=== PATIENT | female | born 1995 | race Caucasian/White ===

== ENCOUNTER 2021-06-10 18:32 | Observation (INO) | payer MEDICAID, SELFPAY ==
[2021-06-10] VITALS (10 sets, daily range): BP systolic 99–125; BP diastolic 57–71; PULSE 81–124; RESP 18; TEMP 37.1–39.6; O2SAT 94–97; BMI 20.9
--- NOTE | 2021-06-10 18:38 | XR_ITS ---
PROCEDURE INFORMATION: Exam: XR Chest Exam date and time: 06/10/21 06:38 PM Age: 26 years old Clinical indication: Fever TECHNIQUE: Imaging protocol: XR of the chest. Views: 1 view. COMPARISON: No relevant prior studies available. FINDINGS: Lungs: Unremarkable. No consolidation. Pleural spaces: Unremarkable. No pleural effusion. No pneumothorax. Heart/Mediastinum: Unremarkable. No cardiomegaly. Bones/joints: Unremarkable. IMPRESSION: No acute findings.
--- NOTE | 2021-06-10 18:51 | PC.NURSE ---
Rad at bedside
[2021-06-10 18:59] LABS: Coronavirus 19, PCR Not Detected (NotDetected); Influenza A, PCR Not Detected (NotDetected); Influenza B, PCR Not Detected (NotDetected)
[2021-06-10 19:01] LABS: Basophils % 0.2 % (0.1-2.0); Eosinophils % 0.5 % (0.1-12.0); Hematocrit 42.2 % (37.0-47.0); Hemoglobin 13.9 g/dL (12.2-16.2); Lymphocytes # 0.4 K/mm3 (0.7-4.5); Lymphocytes % 4.9 % (10-50); Mean Corpuscular HGB Conc 32.9 g/dL (31.8-35.4); Mean Corpuscular Hemoglobin 30.9 pg (27.0-31.2); Mean Corpuscular Volume 93.8 fl (81-99); Mean Platelet Volume 11.2 fl (7.4-10.4); Monocytes # 0.1 K/mm3 (0.1-1.0); Monocytes % 1.5 % (1.7-9.3); Neutrophils # 7.4 K/mm3 (1.8-7.8); Neutrophils % 92.9 % (37.0-80.0); Platelet Count 358 K/mm3 (142-424); Red Cell Distribution Width 13.3 % (11.5-17.5)
[2021-06-10 19:06] LABS: MANUAL DIFFERENTIAL MANUAL DIFFERENTIAL (MANUAL DIFF)
[2021-06-10 19:07] LABS: Chloride 108 mmol/L (98-107)
[2021-06-10 19:08] LABS: Potassium 3.6 mmoL/L (3.5-5.1); Sodium 140 mmol/L (136-145)
[2021-06-10 19:10] LABS: Alanine Aminotransferase 46 U/L (12-78); Alkaline Phosphatase 135 U/L (38-126); Amylase 60 U/L (30-110); Anion Gap 11.6 mEq/L (5-15); Aspartate Amino Transferase 139 U/L (14-36); Bilirubin,Total 2.5 mg/dl (0.2-1.3); Blood Urea Nitrogen 12 mg/dl (7-17); Carbon Dioxide 24 mmol/L (22.0-30.0); Creatinine Clearance Estimated 98 mL/min (50-200); Estimated Glomerular Filt Rate 86 ml/min (>60); GFR (African American) 104 ML/MIN (>60)
[2021-06-10 19:11] LABS: Albumin Level 3.9 g/dl (3.5-5.0); Albumin/Globulin Ratio 1.3 (1.1-1.8); Calcium 8.8 mg/dl (8.4-10.2); Globulin 3.1 g/dL (1.3-3.2); Glucose 92 mg/dl (74-100); Lactic Acid 1.8 mmol/L (0.7-2.1); Lipase 39 U/L (23-300)
[2021-06-10 19:18] LABS: C-Reactive Protein 3.2 mg/L (0-4)
[2021-06-10 19:21] LABS: Lymphocytes % 6 % (10-50); Monocytes % 1 % (2-9); Neutrophils % 93 % (42-76); Platelet Estimate Normal; RBC Morphology Normal; Total Cells Counted 100
[2021-06-10 19:30] LABS: Erythrocyte Sedimentation Rate 17 mm/hr (0-20)
[2021-06-10 19:55] LABS: Procalcitonin 13.2 ng/mL (0.0-2.0)
[2021-06-10 20:22] LABS: Microscopic, Urine URINE MICROSCOPIC (MICROSCOPIC)
[2021-06-10 20:26] LABS: Appearance,Urine CLEAR (Clear); Blood, Urine Negative (Negative); Color,Urine ORANGE (Yellow); Glucose,Urine (UA) Negative (Negative); Ketones,Urine 1+ (Negative); Leukocyte Esterase,Urine Negative (Negative); Nitrate,Urine Negative (Negative); Protein,Urine 2+ (Negative)
[2021-06-10 20:30] LABS: Bilirubin,Urine Negative (Negative)
[2021-06-10 20:40] LABS: Barbiturates Screen,Urine Negative ng/ml (<200); Benzodiazepines Screen,Urine Negative ng/ml (<200)
[2021-06-10 20:41] LABS: Bacteria,Urine 3+ /lpf; Mucus,Urine 2+ /lpf
[2021-06-10 20:42] LABS: Cannabinoid Screen,Urine Positive ng/ml (<50); Methadone Screen,Urine Negative ng/ml (<300)
[2021-06-10 20:43] LABS: Cocaine Screen,Urine Negative ng/ml (<300); Opiate Screen,Urine Negative ng/ml (<300)
[2021-06-10 20:44] LABS: Phencyclidine Screen,Urine Negative ng/ml (<25)
--- NOTE | 2021-06-10 20:59 | HMH.EDFEV ---
ED Disposition Clinical Impression: Febrile illness, acute, IVDU (intravenous drug user), Methamphetamine abuse Disposition: Admitted as Observation Condition on Discharge: Good - Critical Care Critical Care Time: No Attestation: On 06/10/21, the high probability of a clinically significant, sudden or life threatening deterioration of the following system(s) required my full and direct attention, intervention and personal management. The time I documented below is in addition to time spent performing reported procedures but includes the following listed in this critical care notation. Medical Decision Making - Medical Records Medical records reviewed: Yes: I reviewed the patient's medical records. - Yuriy Inquiry Pt receiving controlled substance: No Vital Signs: 06/10/21 18:33 06/10/21 19:00 06/10/21 19:30 Temperature 103.2 F H Temperature Source Oral Pulse Rate 107 H 108 H Pulse Rate [Left Radial] 124 H Respiratory Rate 18 Blood Pressure 121/67 114/71 Blood Pressure [Right Arm] 125/64 Blood Pressure Mean [Right Arm] 84 Blood Pressure Source [Right Arm] Automatic Cuff Blood Pressure Position [Right Arm] Sitting 02 Sat by Pulse Oximetry 94 L 97 95 Oxygen Delivery Method Room Air 06/10/21 20:00 06/10/21 21:05 06/10/21 21:34 Temperature 98.8 F Temperature Source Oral Pulse Rate 114 H 102 H 92 H Pulse Rate [Left Radial] Respiratory Rate Blood Pressure 111/63 103/65 L 99/62 L Blood Pressure [Right Arm] Blood Pressure Mean [Right Arm] Blood Pressure Source [Right Arm] Blood Pressure Position [Right Arm] 02 Sat by Pulse Oximetry 95 97 97 Oxygen Delivery Method 06/10/21 22:25 06/10/21 22:30 06/10/21 23:00 Temperature Temperature Source Pulse Rate 88 87 89 Pulse Rate [Left Radial] Respiratory Rate Blood Pressure 104/60 L 103/61 L 100/57 L Blood Pressure [Right Arm] Blood Pressure Mean [Right Arm] Blood Pressure Source [Right Arm] Blood Pressure Position [Right Arm] 02 Sat by Pulse Oximetry 97 97 97 Oxygen Delivery Method 06/10/21 23:30 06/11/21 00:00 06/11/21 00:27 Temperature Temperature Source Pulse Rate 81 72 82 Pulse Rate [Left Radial] Respiratory Rate Blood Pressure 105/57 L 101/45 L 106/58 L Blood Pressure [Right Arm] Blood Pressure Mean [Right Arm] Blood Pressure Source [Right Arm] Blood Pressure Position [Right Arm] 02 Sat by Pulse Oximetry 97 97 99 Oxygen Delivery Method 06/11/21 00:31 06/11/21 01:00 06/11/21 01:30 Temperature Temperature Source Pulse Rate 86 87 80 Pulse Rate [Left Radial] Respiratory Rate 16 Blood Pressure 102/55 L 103/54 L 104/56 L Blood Pressure [Right Arm] Blood Pressure Mean [Right Arm] Blood Pressure Source [Right Arm] Blood Pressure Position [Right Arm] 02 Sat by Pulse Oximetry 98 98 99 Oxygen Delivery Method Room Air Room Air 06/11/21 02:00 06/11/21 02:30 Temperature Temperature Source Pulse Rate 79 82 Pulse Rate [Left Radial] Respiratory Rate 16 Blood Pressure 104/56 L 103/57 L Blood Pressure [Right Arm] Blood Pressure Mean [Right Arm] Blood Pressure Source [Right Arm] Blood Pressure Position [Right Arm] 02 Sat by Pulse Oximetry 99 99 Oxygen Delivery Method Room Air - Lab Data Lab results reviewed: Yes: I reviewed the patient's lab results. Lab Results 06/10/21 18:49: WBC 8.0, RBC 4.50, Hgb 13.9, Hct 42.2, MCV 93.8, MCH 30.9, MCHC 32.9, RDW 13.3, Plt Count 358, MPV 11.2 H, Neut % (Auto) 92.9 H, Lymph % (Auto) 4.9 L, [place] % (Auto) 1.5 L, Eos % (Auto) 0.5, Baso % (Auto) 0.2, Neut # (Auto) 7.4, Lymph # (Auto) 0.4 L, [place] # (Auto) 0.1, Eos # (Auto) 0.0, Baso # (Auto) 0.0, Total Counted 100, Neutrophils % (Manual) 93 H, Lymphocytes % (Manual) 6 L, Monocytes % (Manual) 1 L, Platelet Estimate Normal, RBC Morphology Normal 06/10/21 18:49: Sodium 140, Potassium 3.6, Chloride 108 H, Carbon Dioxide 24, Ani
--- NOTE | 2021-06-10 21:02 | CT_ITS ---
PROCEDURE INFORMATION: Exam: CT Abdomen And Pelvis With Contrast Exam date and time: 06/10/21 09:02 PM Age: 26 years old Clinical indication: Fever; Additional info: Rule out abcess TECHNIQUE: Imaging protocol: Computed tomography of the abdomen and pelvis with contrast. Radiation optimization: All CT scans at this facility use at least one of these dose optimization techniques: automated exposure control; mA and/or kV adjustment per patient size (includes targeted exams where dose is matched to clinical indication); or iterative reconstruction. Contrast material: ISOVUE; Contrast volume: 75 ml; Contrast route: IV; COMPARISON: CR XR CHEST PORTABLE 06/10/21 06:55 PM FINDINGS: Tubes, catheters and devices: None noted. Lungs: Lung bases appear clear. Heart: No significant coronary calcifications. No cardiomegaly. No significant pericardial effusion. Liver: Normal. No mass. Gallbladder and bile ducts: Normal. No calcified stones. No ductal dilation. Pancreas: Normal. No ductal dilation. Spleen: Normal. No splenomegaly. Adrenal glands: Normal. No mass. Kidneys and ureters: Normal. No hydronephrosis. Stomach and bowel: Unremarkable. No obstruction. No mucosal thickening. Appendix: No evidence of appendicitis. Intraperitoneal space: Unremarkable. No free air. No significant fluid collection. Retroperitoneal space: No significant retroperitoneal inflammatory changes are noted. Vasculature: Unremarkable. No abdominal aortic aneurysm. Lymph nodes: Unremarkable. No enlarged lymph nodes. Urinary bladder: Unremarkable as visualized. Reproductive: Tampon in place. Bones/joints: Unremarkable. No acute fracture. Soft tissues: Unremarkable. IMPRESSION: No acute findings.
--- NOTE | 2021-06-10 21:02 | CT_ITS ---
PROCEDURE INFORMATION: Exam: CT Chest With Contrast; Diagnostic Exam date and time: 06/10/21 09:02 PM Age: 26 years old Clinical indication: Fever; Additional info: Rule out abcess TECHNIQUE: Imaging protocol: Diagnostic computed tomography of the chest with contrast. Radiation optimization: All CT scans at this facility use at least one of these dose optimization techniques: automated exposure control; mA and/or kV adjustment per patient size (includes targeted exams where dose is matched to clinical indication); or iterative reconstruction. Contrast material: ISOVUE; Contrast volume: 75 ml; Contrast route: IV; COMPARISON: CR XR CHEST PORTABLE 06/10/21 06:55 PM FINDINGS: Lungs: Unremarkable. No consolidation. No masses. Pleural spaces: Unremarkable. No pneumothorax. No pleural effusion. Heart: Unremarkable. No cardiomegaly. No pericardial effusion. Aorta: Unremarkable. No aortic aneurysm. Lymph nodes: Unremarkable. No enlarged lymph nodes. Liver: Fatty liver. Bones/joints: Unremarkable. No acute fracture. Soft tissues: Unremarkable. IMPRESSION: 1. Fatty liver. 2. No CT evidence of abscess.
--- NOTE | 2021-06-10 21:02 | CT_ITS ---
PROCEDURE INFORMATION: Exam: CT Thoracic Spine With Contrast Exam date and time: 06/10/21 09:02 PM Age: 26 years old Clinical indication: Other: Fever; Additional info: Rule out abcess TECHNIQUE: Imaging protocol: Computed tomography images of the thoracic spine with intravenous contrast. Radiation optimization: All CT scans at this facility use at least one of these dose optimization techniques: automated exposure control; mA and/or kV adjustment per patient size (includes targeted exams where dose is matched to clinical indication); or iterative reconstruction. Contrast material: ISOVUE; Contrast volume: 50 ml; Contrast route: IV; COMPARISON: CT CERVICAL SPINE W CON 06/10/21 10:03 PM FINDINGS: Vertebrae: No acute fracture. Normal alignment. Discs/Spinal canal/Neural foramina: No significant disc protrusion. No severe spinal canal stenosis. No significant neural foraminal narrowing. Soft tissues: Unremarkable. IMPRESSION: Unremarkable CT T-Spine.
--- NOTE | 2021-06-10 21:02 | CT_ITS ---
PROCEDURE INFORMATION: Exam: CT Cervical Spine with Contrast Exam date and time: 06/10/21 09:02 PM Age: 26 years old Clinical indication: Other: Fever; Additional info: Rule out abcess TECHNIQUE: Imaging protocol: Computed tomography images of the cervical spine with contrast. Radiation optimization: All CT scans at this facility use at least one of these dose optimization techniques: automated exposure control; mA and/or kV adjustment per patient size (includes targeted exams where dose is matched to clinical indication); or iterative reconstruction. Contrast material: ISOVUE; Contrast volume: 50 ml; Contrast route: IV; COMPARISON: CT CHEST W CON 06/10/21 09:57 PM FINDINGS: Vertebrae: No acute fracture. Normal alignment. C2-C3: No significant disc protrusion. No severe spinal canal stenosis. No significant neural foraminal narrowing. C3-C4: No significant disc protrusion. No severe spinal canal stenosis. No significant neural foraminal narrowing. C4-C5: No significant disc protrusion. No severe spinal canal stenosis. No significant neural foraminal narrowing. C5-C6: No significant disc protrusion. No severe spinal canal stenosis. No significant neural foraminal narrowing. C6-C7: No significant disc protrusion. No severe spinal canal stenosis. No significant neural foraminal narrowing. C7-T1: No significant disc protrusion. No severe spinal canal stenosis. No significant neural foraminal narrowing. Soft tissues: Unremarkable. Lungs: Lung apices are normal. IMPRESSION: No acute findings.
--- NOTE | 2021-06-10 21:02 | CT_ITS ---
PROCEDURE INFORMATION: Exam: CT Lumbar Spine With Contrast Exam date and time: 06/10/21 09:02 PM Age: 26 years old Clinical indication: Other: Fever; Additional info: Rule out abcess TECHNIQUE: Imaging protocol: Computed tomography images of the lumbar spine with intravenous contrast. Radiation optimization: All CT scans at this facility use at least one of these dose optimization techniques: automated exposure control; mA and/or kV adjustment per patient size (includes targeted exams where dose is matched to clinical indication); or iterative reconstruction. Contrast material: ISOVUE; Contrast volume: 50 ml; Contrast route: IV; COMPARISON: CT THORACIC SPINE W CON 06/10/21 10:07 PM FINDINGS: Vertebrae: No acute fracture. Normal alignment. L1-L2: No significant disc protrusion. No severe spinal canal stenosis. No significant neural foraminal narrowing. L2-L3: No significant disc protrusion. No severe spinal canal stenosis. No significant neural foraminal narrowing. L3-L4: No significant disc protrusion. No severe spinal canal stenosis. No significant neural foraminal narrowing. L4-L5: No significant disc protrusion. No severe spinal canal stenosis. No significant neural foraminal narrowing. L5-S1: No significant disc protrusion. No severe spinal canal stenosis. No significant neural foraminal narrowing. Soft tissues: Unremarkable. IMPRESSION: Unremarkable spine.
[2021-06-10 21:33] LABS: Urine Pregnancy, HCG Qual. Negative (Negative)
[2021-06-11] VITALS (12 sets, daily range): BP systolic 80–120; BP diastolic 40–78; PULSE 72–97; RESP 16–20; TEMP 36.4–37.1; O2SAT 96–100; BMI 23.8
[2021-06-11 01:37] LABS: Procalcitonin 42.7 ng/mL (0.0-2.0)
--- NOTE | 2021-06-11 03:39 | PC.NURSE ---
patient up to floor via wheelchair.
--- NOTE | 2021-06-11 03:40 | PC.NURSE ---
Spoke julian Parker at [facility] for Vanc dosing. She gave recommended dose of 1250mg Vanc IV once.
--- NOTE | 2021-06-11 04:23 | PC.NURSE ---
A&OX4. TOLERATING RA WELL. PT IS VERY DROWSY, BUT IS ABLE TO ANSWER QUESTIONS AND FOLLOWS COMMANDS. PT HAS SLEPT SINCE ARRIVAL TO FLOOR, NO C/O. TOLERATING NPO DIET. VSS WILL CONTINUE TO MONITOR.
[2021-06-11 06:41] LABS: Basophils # 0.2 K/mm3 (0-0.2); Basophils % 0.5 % (0.1-2.0); Eosinophils # 0.2 K/mm3 (0.0-0.4); Eosinophils % 0.5 % (0.1-12.0); Hematocrit 38.6 % (37.0-47.0); Hemoglobin 12.6 g/dL (12.2-16.2); Lymphocytes # 0.2 K/mm3 (0.7-4.5); Lymphocytes % 0.7 % (10-50); Mean Corpuscular HGB Conc 32.8 g/dL (31.8-35.4); Mean Corpuscular Hemoglobin 31.3 pg (27.0-31.2); Mean Corpuscular Volume 95.5 fl (81-99); Mean Platelet Volume 10.1 fl (7.4-10.4); Monocytes # 0.7 K/mm3 (0.1-1.0); Monocytes % 2.2 % (1.7-9.3); Neutrophils # 32.1 K/mm3 (1.8-7.8); Neutrophils % 96.1 % (37.0-80.0); Platelet Count 335 K/mm3 (142-424); Red Blood Count 4.04 M/mm3 (4.20-5.40); Red Cell Distribution Width 13.4 % (11.5-17.5); White Blood Count 33.4 K/mm3 (4.8-10.8)
[2021-06-11 07:13] LABS: Chloride 109 mmol/L (98-107); Sodium 139 mmol/L (136-145)
[2021-06-11 07:16] LABS: Carbon Dioxide 23 mmol/L (22.0-30.0)
[2021-06-11 07:17] LABS: Magnesium 1.4 mg/dl (1.6-2.3)
--- NOTE | 2021-06-11 07:22 | HMH.PHAVTE ---
[facility] Pharmacy VTE Monitoring - Patient Demographics Admission date: 06/10/21 Report Date: 06/11/21 Time: 07:22 Allergies/Adverse Reactions: Patient Allergies No Known Allergies Allergy (Unverified 08/17/17 14:06) Height: 1.68 m Weight: 67.041 kg Patient Problems: Current Active Problems Febrile illness, acute (Acute) IVDU (intravenous drug user) (Acute) Methamphetamine abuse (Acute) - VTE Risk Labs: VTE Related Lab Results Hgb 13.9 g/dL (12.2-16.2) 06/10/21 18:49 Hct 42.2 % (37.0-47.0) 06/10/21 18:49 Plt Count 358 K/mm3 (142-424) 06/10/21 18:49 BUN 12 mg/dl (7-17) 06/10/21 18:49 Creatinine 0.80 mg/dl (0.52-1.04) 06/10/21 18:49 Estimated Creat Clear 98 mL/min (50-200) 06/10/21 18:49 Clinical Trial Participant: No - Prophylaxis VTE Prophylaxis Ordered?: Yes Types of VTE Prophylaxis: TEDS Knee High
[2021-06-11 07:25] LABS: MANUAL DIFFERENTIAL MANUAL DIFFERENTIAL (MANUAL DIFF)
[2021-06-11 08:18] LABS: Lymphocytes % 3 % (10-50); Monocytes % 3 % (2-9); Neutrophils % 94 % (42-76); Platelet Estimate Normal; Total Cells Counted 100
[2021-06-11 08:19] LABS: Hypochromasia 1+
[2021-06-11 08:46] LABS: Anion Gap 11.1 mEq/L (5-15); Potassium 4.1 mmoL/L (3.5-5.1)
[2021-06-11 08:49] LABS: Blood Urea Nitrogen 13 mg/dl (7-17); Calcium 7.6 mg/dl (8.4-10.2); Creatinine Clearance Estimated 112 mL/min (50-200); Estimated Glomerular Filt Rate 86 ml/min (>60); GFR (African American) 104 ML/MIN (>60); Glucose 104 mg/dl (74-100)
--- NOTE | 2021-06-11 08:56 | HMH.PHACONS ---
- Pharmacy Consult Date: 06/11/21 Time: 08:56 Referring provider: EL Reason for Consult:: VANCOMYCIN DOSING CONSULT Allergies and ADEs:: Allergies Allergy/AdvReac Type Severity Reaction Status Date / Time No Known Allergies Allergy Unverified 08/17/17 14:06 Home Medications:: Home Medications Medication Instructions Recorded Confirmed Type No Known Home Medications 06/11/21 06/11/21 History Height: 1.68 m Weight: 67.041 kg Laboratory Results:: Laboratory Results - last 24 hr 06/10/21 18:49: WBC 8.0, RBC 4.50, Hgb 13.9, Hct 42.2, MCV 93.8, MCH 30.9, MCHC 32.9, RDW 13.3, Plt Count 358, MPV 11.2 H, Neut % (Auto) 92.9 H, Lymph % (Auto) 4.9 L, [place] % (Auto) 1.5 L, Eos % (Auto) 0.5, Baso % (Auto) 0.2, Neut # (Auto) 7.4, Lymph # (Auto) 0.4 L, [place] # (Auto) 0.1, Eos # (Auto) 0.0, Baso # (Auto) 0.0, Total Counted 100, Neutrophils % (Manual) 93 H, Lymphocytes % (Manual) 6 L, Monocytes % (Manual) 1 L, Platelet Estimate Normal, RBC Morphology Normal 06/10/21 18:49: Sodium 140, Potassium 3.6, Chloride 108 H, Carbon Dioxide 24, Anion Gap 11.6, BUN 12, Creatinine 0.80, Estimated Creat Clear 98, Estimated GFR 86, Est GFR ( Amer) 104, Glucose 92, Calcium 8.8, Total Bilirubin 2.5 H, AST 139 H, ALT 46, Alkaline Phosphatase 135 H, C-Reactive Protein 3.2, Total Protein 7.0, Albumin 3.9, Globulin 3.1, Albumin/Globulin Ratio 1.3, Amylase 60, Lipase 39 06/10/21 18:49: Lactate 1.8 06/10/21 18:49: ESR 17 06/10/21 18:49: Procalcitonin 13.2 H 06/10/21 18:55: SARS-CoV-2 (PCR) Not detected, Influenza A Untype (PCR) Not detected, Influenza Type B (PCR) Not detected 06/10/21 20:17: Urine Color [place], Urine Appearance Clear, Urine pH 6.0, Ur Specific [place] 1.010, Urine Protein 2+, Urine Glucose (UA) Negative, Urine Ketones 1+, Urine Blood Negative, Urine Nitrate Negative, Urine Bilirubin Negative, Urine Urobilinogen 2.0, Ur Leukocyte Esterase Negative, Urine WBC 5-10, Ur Squamous Epith Cells 3-5, Urine Bacteria 3+, Urine Mucus 2+ 06/10/21 20:17: Urine Opiates Screen Negative, Urine Methadone Screen Negative, Ur Barbituates Screen Negative, Ur Phencyclidine Scrn Negative, Ur Amphetamines Screen Engagement Manager, U Benzodiazepines Scrn Negative, Urine Cocaine Screen Negative, U Marijuana (THC) Screen Positive H 06/10/21 20:17: Urine HCG, Qual Negative 06/11/21 00:45: Procalcitonin 42.7 H 06/11/21 06:16: WBC 33.4 H* D, RBC 4.04 L, Hgb 12.6, Hct 38.6, MCV 95.5, MCH 31.3 H, MCHC 32.8, RDW 13.4, Plt Count 335, MPV 10.1, Neut % (Auto) 96.1 H, Lymph % (Auto) 0.7 L, [place] % (Auto) 2.2, Eos % (Auto) 0.5, Baso % (Auto) 0.5, Neut # (Auto) 32.1 H, Lymph # (Auto) 0.2 L, [place] # (Auto) 0.7, Eos # (Auto) 0.2, Baso # (Auto) 0.2, Total Counted 100, Neutrophils % (Manual) 94 H, Lymphocytes % (Manual) 3 L, Monocytes % (Manual) 3, Platelet Estimate Normal, Hypochromasia 1+ 06/11/21 06:16: Sodium 139, Potassium 4.1, Chloride 109 H, Carbon Dioxide 23, Anion Gap 11.1, BUN 13, Creatinine 0.80, Estimated Creat Clear 112, Estimated GFR 86, Est GFR ( Amer) 104, Glucose 104 H, Calcium 7.6 L, Magnesium 1.4 L Assessment and Plan - Assessment and plan all Dx Assessment and Plan for all problems:: Subjective and Objective Data: This is a 26 year old female patient with PMH significant for IVDU c/o N/V and fever with a febrile illness. Measured serum creatinine (SCr) is 0.8 mg/dL. Given a height of 167.64 cm and a weight of 67.041 kg, estimated creatinine clearance is 111.8 mL/min (using the CrCl TBW body weight). The following targets were selected for dosing: - Desired AUC = 500 mcg*h/mL - Desired Cmax = 35 mcg/mL - Desired Cmin = 12.5 mcg/mL - Vd coefficient = 0.65 L/kg - Ke equation = CrCl*0.80525+0.0044 Calculations: Based on above, the following are calculated parameters for AUC-based vancomycin dosing in this patient: - Calculated Vd = 43.79426M - Calculated Ke = 0.097 inverse hours - Calculated half-life = 7.1 hours Recommended Prescribed Dosing: Dhaval
--- NOTE | 2021-06-11 09:35 | FL_ITS ---
PROCEDURE: FL GUIDED LUMBAR PUNCTURE LP CLINICAL INDICATION: Fever Unknown Origin COMPARISON: No exams were available for comparison TECHNIQUE: Informed consent was obtained prior to procedure. Under local anesthesia with 1% lidocaine and under fluoroscopic guidance a 20-gauge spinal needle was inserted into the L4-L5 interspace. Approximately 12 cc of clear CSF was obtained and sent to laboratory for analysis. The patient tolerated the procedure well without evidence of immediate complication IMPRESSION: Successful fluoroscopy guided lumbar puncture without complications. Dictated by: Gustavo Segundo MD 06/11/2021 11:11 Gustavo Segundo MD in [place] 06/11/2021 11:11
--- NOTE | 2021-06-11 09:55 | PC.NURSE ---
asssiting with charting vitals and srna checks at this time.
--- NOTE | 2021-06-11 10:12 | HMH.HP ---
*Admission Date: 06/10/21 *Chief complaint: fever *History of present illness: 26 yr old female presented to ed with c/o of fever,ams,vomiting and nausea. Pt states she is a iv drug user. pt had elevated procalitonin and fever or unknown origin. Pt admitted for further evaluation on fever, ams and IV fluids [facility] History I have reviewed the patient's past medical history: Yes *Have you ever received a pneumonia vaccine?: No *Have you received a flu vaccine this season?: No - *Social History Smoking Status: Former smoker Tobacco Type: cigarettes # Packs/Day (cigarettes): 1 Alcohol Intake: never Substance Use Type: methamphetamine Last Used Substance: days (ago) *Occupational Status:: unemployed *Travel in the last 8 weeks: None Family Hx:: No significant family history Review of Systems - Review of Systems Review of systems:: pertinent systems reviewed and negative unless documented below - Constitutional Reports fever(s), Reports weakness, Denies body ache(s) - Eyes Denies blurry vision - ENT Denies nasal congestion - *Cardiovascular Denies shortness of breath causing sudden awakening, Denies fainting - *Respiratory Denies change in phlegm color, Denies shortness of breath with activity, Denies pain on inspiration - *Gastrointestinal Reports nausea, Reports vomiting - *Genitourinary Denies difficulty urinating - *Musculoskeletal Denies limited joint movement - Integumentary/Breasts Denies nipple discharge - *Neurologic Denies abnormal walking, Denies abnormal hearing, Denies localized weakness - Psychiatric Denies thoughts of hurting/killing yourself - Endocrine Denies excessive sweating - Hematologic/Lymphatic Denies easy bruising - Allergic/Immunologic Denies wheezing Meds Home Medications Medication Instructions Recorded Confirmed Type No Known Home Medications 06/11/21 06/11/21 History Allergies Allergy/AdvReac Type Severity Reaction Status Date / Time No Known Allergies Allergy Unverified 08/17/17 14:06 Exam Vital signs and Labs for Last 24 Hours: Temp Pulse Resp BP Pulse Ox 97.9 F 82 20 105/48 L 98 06/11/21 07:41 06/11/21 07:41 06/11/21 07:41 06/11/21 07:41 06/11/21 07:41 Laboratory Results - last 24 hr 06/10/21 18:49: WBC 8.0, RBC 4.50, Hgb 13.9, Hct 42.2, MCV 93.8, MCH 30.9, MCHC 32.9, RDW 13.3, Plt Count 358, MPV 11.2 H, Neut % (Auto) 92.9 H, Lymph % (Auto) 4.9 L, [place] % (Auto) 1.5 L, Eos % (Auto) 0.5, Baso % (Auto) 0.2, Neut # (Auto) 7.4, Lymph # (Auto) 0.4 L, [place] # (Auto) 0.1, Eos # (Auto) 0.0, Baso # (Auto) 0.0, Total Counted 100, Neutrophils % (Manual) 93 H, Lymphocytes % (Manual) 6 L, Monocytes % (Manual) 1 L, Platelet Estimate Normal, RBC Morphology Normal 06/10/21 18:49: Sodium 140, Potassium 3.6, Chloride 108 H, Carbon Dioxide 24, Anion Gap 11.6, BUN 12, Creatinine 0.80, Estimated Creat Clear 98, Estimated GFR 86, Est GFR ( Amer) 104, Glucose 92, Calcium 8.8, Total Bilirubin 2.5 H, AST 139 H, ALT 46, Alkaline Phosphatase 135 H, C-Reactive Protein 3.2, Total Protein 7.0, Albumin 3.9, Globulin 3.1, Albumin/Globulin Ratio 1.3, Amylase 60, Lipase 39 06/10/21 18:49: Lactate 1.8 06/10/21 18:49: ESR 17 06/10/21 18:49: Procalcitonin 13.2 H 06/10/21 18:55: SARS-CoV-2 (PCR) Not detected, Influenza A Untype (PCR) Not detected, Influenza Type B (PCR) Not detected 06/10/21 20:17: Urine Color [employer], Urine Appearance Clear, Urine pH 6.0, Ur Specific [place] 1.010, Urine Protein 2+, Urine Glucose (UA) Negative, Urine Ketones 1+, Urine Blood Negative, Urine Nitrate Negative, Urine Bilirubin Negative, Urine Urobilinogen 2.0, Ur Leukocyte Esterase Negative, Urine WBC 5-10, Ur Squamous Epith Cells 3-5, Urine Bacteria 3+, Urine Mucus 2+ 06/10/21 20:17: Urine Opiates Screen Negative, Urine Methadone Screen Negative, Ur Barbituates Screen Negative, Ur Phencyclidine Scrn Negative, Ur Amphetamines Screen [employer] Architect, U Benzodiazepines Scrn Negative, Urine Cocaine Screen Neg
--- NOTE | 2021-06-11 10:27 | PC.NURSE ---
Pt down for lumbar puncture at this time.
[2021-06-11 11:13] LABS: Appearance,CSF Clear (Clear); Volume,CSF 10.5 mL
[2021-06-11 11:52] LABS: Glucose,CSF 55 mg/dl (40-70)
[2021-06-11 12:17] LABS: Red Blood Cell,CSF 0 cells/uL (0); White Blood Cell,CSF 2 cells/uL (0-5)
[2021-06-11 12:19] LABS: Mononuclear WBCs,CSF 0 %; Polynuclear WBCs,CSF 0 %
--- NOTE | 2021-06-11 14:30 | CA_ITS ---
APPROVED REPORT EXAM: Comprehensive 2D, Doppler, and color-flow Echocardiogram Blasting Entryman: ELVIN Vásquez, RVS Ht: 5 ft 6 in Wt: 130lbs BSA: 1.67 BP: 120/70 mmHg Indications: Acute febrile illness, Meth intoxication, Elevated WBC 2D Dimensions LVDs 2.96 cm LA Volume 31.60 mL Aortic Root 2.47 cm LA Volume Index 18.90 mL/m2 (M/F) 16-34 Left Atrium 2.80 cm LVOT 1.88 cm (M/F) 1.5-2.5 M-Mode Dimensions RVDd 1.62 cm (0.9-2.6) LA Diam 2.87 cm (1.9-4.0) LVDd 5.50 cm (3.5-5.7) Ao Diam 3.66 cm (2.0-3.7) LVDs 3.79 cm (3.5-5.7) IVSd 0.75 cm (0.6-1.1) PWd 0.47 cm (0.6-1.1) EF (Teich) 53.70% EPSs 0.22 cm FS 27.90% EDV (Teich) 133.00 mL TAPSE 2.50 (<1.7) ESV (Teich) 61.60 mL LV Diastology E Decel Time 153.00 (160-240 msec) E/A Ratio 1.22 MED E' 13.00 (< 7 cm/sec) MED A' 8.90 cm/s E'/MED E' Ratio 7.32 (>14) LAT E' 20.90 (<10 cm/sec) LAT A' 13.20 cm/s E/LAT E' Ratio 4.56 (>14) Aortic Valve LVOT Max 109.00 (70-110 cm/s) LVOT VTI 21.40 cm AoV Peak José. 129.00 (50-130 cm/s) AO Peak GR. 6.70 mmHg AO Mean GR. 3.30 (<5 mmHg) AO VTI 25.14 (18-25 cm) JOHNY (VTI) 2.36 (2.5-4.5 cm2) Mitral Valve MV A Velocity 78.00 (40-130 cm/s) E/A Ratio 1.22 MV Decel. Time 153.00 (160-240 ms) Pulmonary Valve PV Peak Velocity 87.00 (50-150 cm/s) Tricuspid Valve TR P. Velocity 182.00 cm/s RAP Estimate 10.00 mmHg RVSP 23.20 mmHg Left Ventricle Left atrium is normal size, left ventricle is normal size, there is no concentric left ventricular hypertrophy, visually estimated ejection fraction 55% with no regional wall motion abnormality, diastolic parameters are within normal range. Right Ventricle Right atrium and right ventricle are normal size and contractility. Aortic Valve Aortic valve is grossly normal, there is no aortic stenosis or aortic insufficiency. Mitral Valve Mitral valve is grossly normal, there is trace mitral regurgitation. Tricuspid Valve Tricuspid valve grossly normal, there is trace tricuspid regurgitation, tricuspid regurgitation jet velocity is inadequate for calculation of the right ventricular systolic pressure. Pulmonic Valve Pulmonic valve is poorly visualized. Great Vessels Aortic root is normal size. Inferior vena cava is normal size with normal inspiratory collapse. Pericardium No significant pericardial effusion noted. Conclusion 1. Normal left ventricular size, preserved left ventricular systolic function, visually estimated ejection fraction 55% with no regional wall motion abnormality, diastolic parameters are within normal range. 2. Trace mitral and tricuspid regurgitation. 3. No significant pericardial effusion noted. Electronically signed by : Marty Bundy MD 06/12/2021 13:44:55
--- NOTE | 2021-06-11 15:18 | PC.NURSE ---
Called and reported positive anaerobic blood cx gram positive bacilli to Gal Camacho RN.
--- NOTE | 2021-06-11 18:17 | HMH.DCSUM ---
General - General Admission date:: 06/11/21 Discharge date: 06/11/21 HPI HPI: 26 yr old female presented to ed with c/o of fever,ams,vomiting and nausea. Pt states she is a iv drug user. pt had elevated procalitonin and fever or unknown origin. Pt admitted for further evaluation on fever, ams and IV fluids Hospital Course Hospital Course: Lab Results 06/10/21 18:49: WBC 8.0, RBC 4.50, Hgb 13.9, Hct 42.2, MCV 93.8, MCH 30.9, MCHC 32.9, RDW 13.3, Plt Count 358, MPV 11.2 H, Neut % (Auto) 92.9 H, Lymph % (Auto) 4.9 L, Jay % (Auto) 1.5 L, Eos % (Auto) 0.5, Baso % (Auto) 0.2, Neut # (Auto) 7.4, Lymph # (Auto) 0.4 L, Jay # (Auto) 0.1, Eos # (Auto) 0.0, Baso # (Auto) 0.0, Total Counted 100, Neutrophils % (Manual) 93 H, Lymphocytes % (Manual) 6 L, Monocytes % (Manual) 1 L, Platelet Estimate Normal, RBC Morphology Normal 06/10/21 18:49: Sodium 140, Potassium 3.6, Chloride 108 H, Carbon Dioxide 24, Anion Gap 11.6, BUN 12, Creatinine 0.80, Estimated Creat Clear 98, Estimated GFR 86, Est GFR ( Amer) 104, Glucose 92, Calcium 8.8, Total Bilirubin 2.5 H, AST 139 H, ALT 46, Alkaline Phosphatase 135 H, C-Reactive Protein 3.2, Total Protein 7.0, Albumin 3.9, Globulin 3.1, Albumin/Globulin Ratio 1.3, Amylase 60, Lipase 39 06/10/21 18:49: Lactate 1.8 06/10/21 18:49: ESR 17 06/10/21 18:49: Procalcitonin 13.2 H 06/10/21 18:55: SARS-CoV-2 (PCR) Not detected, Influenza A Untype (PCR) Not detected, Influenza Type B (PCR) Not detected 06/10/21 20:17: Urine Color [place], Urine Appearance Clear, Urine pH 6.0, Ur Specific [place] 1.010, Urine Protein 2+, Urine Glucose (UA) Negative, Urine Ketones 1+, Urine Blood Negative, Urine Nitrate Negative, Urine Bilirubin Negative, Urine Urobilinogen 2.0, Ur Leukocyte Esterase Negative, Urine WBC 5-10, Ur Squamous Epith Cells 3-5, Urine Bacteria 3+, Urine Mucus 2+ 06/10/21 20:17: Urine Opiates Screen Negative, Urine Methadone Screen Negative, Ur Barbituates Screen Negative, Ur Phencyclidine Scrn Negative, Ur Amphetamines Screen Supervisor Cell Operation, U Benzodiazepines Scrn Negative, Urine Cocaine Screen Negative, U Marijuana (THC) Screen Positive H 06/10/21 20:17: Urine HCG, Qual Negative 06/11/21 00:45: Procalcitonin 42.7 H 06/11/21 06:16: WBC 33.4 H* D, RBC 4.04 L, Hgb 12.6, Hct 38.6, MCV 95.5, MCH 31.3 H, MCHC 32.8, RDW 13.4, Plt Count 335, MPV 10.1, Neut % (Auto) 96.1 H, Lymph % (Auto) 0.7 L, Jay % (Auto) 2.2, Eos % (Auto) 0.5, Baso % (Auto) 0.5, Neut # (Auto) 32.1 H, Lymph # (Auto) 0.2 L, Jay # (Auto) 0.7, Eos # (Auto) 0.2, Baso # (Auto) 0.2, Total Counted 100, Neutrophils % (Manual) 94 H, Lymphocytes % (Manual) 3 L, Monocytes % (Manual) 3, Platelet Estimate Normal, Hypochromasia 1+ 06/11/21 06:16: Sodium 139, Potassium 4.1, Chloride 109 H, Carbon Dioxide 23, Anion Gap 11.1, BUN 13, Creatinine 0.80, Estimated Creat Clear 112, Estimated GFR 86, Est GFR ( Amer) 104, Glucose 104 H, Calcium 7.6 L, Magnesium 1.4 L 06/11/21 10:25: CSF Volume 10.5, CSF Appearance Clear, CSF WBC 2, CSF RBC 0, CSF Mononuclear WBCs % 0, CSF Polynuclear WBCs % 0 06/11/21 10:25: CSF Glucose 55, CSF Total Protein 51.0 Microbiology Results 06/10/21 18:49 Blood Blood Culture - Preliminary 06/11/21 10:25 Cerebral Spinal Fluid Gram Stain - Final 06/11/21 10:25 Cerebral Spinal Fluid CSF Culture - Pending 06/10/21 20:17 Urine,Clean Catch Urine Culture - Pending 06/10/21 18:49 Blood Blood Culture - Pending Ordering Physician: Juan Davsion MD Date of Service: 06/10/21 Procedure(s): XR chest portable Accession Number(s): [id number] cc: Ken Kasper MD; Provider,Referral MD~ PROCEDURE INFORMATION: Exam: XR Chest Exam date and time: 06/10/21 06:38 PM Age: 26 years old Clinical indication: Fever TECHNIQUE: Imaging protocol: XR of the chest. Views: 1 view. COMPARISON: No relevant prior studies available. FINDINGS: Lungs: Unremarkable. No consolidation. Pleural spaces: Unremarkable. No pleural effusion. No pneumothorax.
[2021-06-17 08:25] LABS: Amphetamine Positive (.); Amphetamine (GC/MS) 3916 ng/mL (Cutoff=500); Amphetamines Positive (.); Methamphetamine Positive (.); Methamphetamine (GC/MS) >3000 ng/mL (Cutoff=500)
== END 2021-06-11 16:28 | disposition left against medical advice (07) | DRG 864 ==
LOC: ER 22:24 → 2ND 06-11 03:24
PROVIDERS: Nurse Practitioner Family; Admitting Provider Emergency Medicine; Emergency Provider Emergency Medicine; Visit Provider Emergency Medicine
DX: R50.9 Fever, unspecified (principal); F15.10 Other stimulant abuse, uncomplicated; Z20.822 Contact with and (suspected) exposure to COVID-19; R11.2 Nausea with vomiting, unspecified
CPT/HCPCS: 62270; 36415; 71045; 71260; 72126; 72129; 72132; 74177; 80048; 80053; 80305; 80324; 81001; 81025; 82150; 82945; 83605; 83690; 83735; 84145; 84155; 85007; 85025; 85651; 86140; 87040; 87070; 87077; 87086; 87186; 87205; 89051; 93306; 96365; 96366; 96367; 96375; 99284; C9803; G0378; J1335; J2405; J3370; Q9967; U0003; U0005

== ENCOUNTER 2021-10-17 12:22 | Emergency (ER) | payer MEDICAID, SELFPAY ==
[2021-10-17 12:22] VITALS: BP 115/47; PULSE 89; RESP 16; TEMP 36.5; O2SAT 98; BMI 24.2
--- NOTE | 2021-10-17 12:54 | HMH.EDGENADL ---
ED Disposition Clinical Impression: UTI (urinary tract infection) Disposition: Home, Self-Care Condition on Discharge: Good Instructions: DI for Urinary Tract Infection (UTI) Prescriptions: Nitrofurantoin Monohyd/M-Cryst [Macrobid 100 mg Capsule] 100 mg PO BID 5 Days #10 cap Transmission Status: Pending to [id number] Referrals: Provider,Referral, [Primary Care Provider] - - Critical Care Critical Care Time: No Attestation: On 10/17/21, the high probability of a clinically significant, sudden or life threatening deterioration of the following system(s) required my full and direct attention, intervention and personal management. The time I documented below is in addition to time spent performing reported procedures but includes the following listed in this critical care notation. Medical Decision Making - Yuriy Inquiry Pt receiving controlled substance: No Vital Signs: 10/17/21 12:22 Temperature 97.7 F Temperature Source Oral Pulse Rate [Radial] 89 Respiratory Rate 16 Blood Pressure [Right Arm] 115/47 L Blood Pressure Mean [Right Arm] 69 Blood Pressure Position [Right Arm] Sitting 02 Sat by Pulse Oximetry 98 Oxygen Delivery Method Room Air - Lab Data Lab Results 10/17/21 12:30: Urine Color Dk yellow, Urine Appearance Clear, Urine pH 6.0, Ur Specific [place] 1.025, Urine Protein Negative, Urine Glucose (UA) Negative, Urine Ketones Negative, Urine Blood Negative, Urine Nitrate Negative, Urine Bilirubin Negative, Urine Urobilinogen 0.2, Ur Leukocyte Esterase Negative, Urine WBC 10-20, Ur Squamous Epith Cells Occasional, Urine Bacteria 1+ 10/17/21 12:30: Urine HCG, Qual Negative 10/17/21 13:20: WBC 6.2, RBC 4.86, Hgb 15.1, Hct 46.3, MCV 95.3, MCH 31.0, MCHC 32.5, RDW 12.8, Plt Count 88 L, MPV 10.6 H, Neut % (Auto) 71.1, Lymph % (Auto) 21.6, [place] % (Auto) 4.7, Eos % (Auto) 2.3, Baso % (Auto) 0.4, Neut # (Auto) 4.4, Lymph # (Auto) 1.3, [place] # (Auto) 0.3, Eos # (Auto) 0.1, Baso # (Auto) 0.0 10/17/21 13:20: Sodium 135 L, Potassium 5.0, Chloride 105, Carbon Dioxide 25, Anion Gap 10.0, BUN 12, Creatinine 0.60, Estimated Creat Clear 151, Estimated GFR 120, Est GFR ( Amer) 145, Glucose 96, Calcium 8.6, Total Bilirubin 1.8 H, AST 49 H, ALT 31, Alkaline Phosphatase 51, Total Protein 7.9, Albumin 4.6, Globulin 3.3 H, Albumin/Globulin Ratio 1.4 10/17/21 13:55: Lactate 1.8 Result diagrams: 10/17/21 13:20 10/17/21 13:20 Orders (Tests/Meds): ED MEDICATIONS Discontinued Medications Generic Name Dose Route Start Last Admin Trade Name Cheli PRN Reason Stop Dose Admin Dicyclomine HCl 20 mg 10/17/21 13:13 10/17/21 14:04 Dicyclomine 10mg Capsule PO 10/17/21 13:14 20 mg ONCE ONE Administration Lactated Ringer's 500 mls @ 999 mls/hr 10/17/21 13:15 10/17/21 14:04 Lactated Ringer's 1000 Ml Bag IV 10/17/21 13:45 999 mls/hr .Q31M MARILYN Administration Ketorolac Tromethamine 15 mg 10/17/21 13:13 10/17/21 14:01 Ketorolac 30mg/Ml Vial IV 10/17/21 13:14 15 mg ONCE ONE Administration ORDERS Category Date Time Status Urine Culture Stat Micro 10/17/21 12:30 Received Medical Decision Narrative: 26 yo female w/ hx IVDU (per chart review) presents for lower abd pain x 2 days. Started during sexual intercourse on RLQ and spread to LLQ. Sharp in nature. She reports 10/10 pain but has no abd tenderness to palpation and even when left in ED room appears comfortable and relaxed. Reports pain worsens with position change but is able to move around in ED bed or walk and stand without hesitation, grimace, signs of discomfort. She is HDS, afebrile. DDx includes but not limited to musculoskeletal pain, , mittelschmerz. appendicitis is a consideration given hx rlq but atypical spread of pain location and without ttp on exam. uti consideration in female patient w/ abd pain but no urinary changes reported per hpi. ovarian or adnexal pathology is a consideration but unusual to
[2021-10-17 12:58] LABS: Microscopic, Urine URINE MICROSCOPIC (MICROSCOPIC)
[2021-10-17 13:00] LABS: Appearance,Urine CLEAR (Clear); Bilirubin,Urine Negative (Negative); Blood, Urine Negative (Negative); Color,Urine DK YELLOW (Yellow); Glucose,Urine (UA) Negative (Negative); Ketones,Urine Negative (Negative); Leukocyte Esterase,Urine Negative (Negative); Nitrate,Urine Negative (Negative); Protein,Urine Negative (Negative); Specific Gravity, Urine 1.025 (1.005-1.030); Urobilinogen,Urine 0.2 EU/dl (0.2)
[2021-10-17 13:01] LABS: Urine Pregnancy, HCG Qual. Negative (Negative)
[2021-10-17 13:14] LABS: Bacteria,Urine 1+ /lpf
[2021-10-17 13:15] LABS: Squamous Epithelial Cell,Urine Occasional #/hpf (0-5)
[2021-10-17 13:38] LABS: Basophils % 0.4 % (0.1-2.0); Eosinophils # 0.1 K/mm3 (0.0-0.4); Eosinophils % 2.3 % (0.1-12.0); Hematocrit 46.3 % (37.0-47.0); Hemoglobin 15.1 g/dL (12.2-16.2); Lymphocytes # 1.3 K/mm3 (0.7-4.5); Lymphocytes % 21.6 % (10-50); Mean Corpuscular HGB Conc 32.5 g/dL (31.8-35.4); Mean Corpuscular Volume 95.3 fl (81-99); Mean Platelet Volume 10.6 fl (7.4-10.4); Monocytes # 0.3 K/mm3 (0.1-1.0); Monocytes % 4.7 % (1.7-9.3); Neutrophils # 4.4 K/mm3 (1.8-7.8); Neutrophils % 71.1 % (37.0-80.0); Platelet Count 88 K/mm3 (142-424); Red Blood Count 4.86 M/mm3 (4.20-5.40); Red Cell Distribution Width 12.8 % (11.5-17.5); White Blood Count 6.2 K/mm3 (4.8-10.8)
[2021-10-17 13:48] LABS: Chloride 105 mmol/L (98-107); Sodium 135 mmol/L (136-145)
[2021-10-17 13:50] LABS: Alanine Aminotransferase 31 U/L (12-78); Aspartate Amino Transferase 49 U/L (14-36); Blood Urea Nitrogen 12 mg/dl (7-17); Creatinine Clearance Estimated 151 mL/min (50-200); Estimated Glomerular Filt Rate 120 ml/min (>60); GFR (African American) 145 ML/MIN (>60)
[2021-10-17 13:51] LABS: Albumin Level 4.6 g/dl (3.5-5.0); Albumin/Globulin Ratio 1.4 (1.1-1.8); Alkaline Phosphatase 51 U/L (38-126); Bilirubin,Total 1.8 mg/dl (0.2-1.3); Calcium 8.6 mg/dl (8.4-10.2); Carbon Dioxide 25 mmol/L (22.0-30.0); Globulin 3.3 g/dL (1.3-3.2); Glucose 96 mg/dl (74-100); Total Protein,Serum 7.9 g/dl (6.3-8.2)
[2021-10-17 14:14] LABS: Lactic Acid 1.8 mmol/L (0.7-2.1)
[2021-10-17 15:04] VITALS: BP 124/83; PULSE 78; RESP 16; TEMP 36.6; O2SAT 98
== END 2021-10-17 15:06 | disposition home or self-care (01) ==
PROVIDERS: Emergency Provider Student in an Organized Health Care Education/Training Program
DX: N30.00 Acute cystitis without hematuria (principal); Z87.891 Personal history of nicotine dependence
CPT/HCPCS: 80053; 81001; 81025; 83605; 85025; 87086; 96365; 96375; 99282; 99284

== ENCOUNTER 2024-01-11 15:49 | Outpatient (CLI) | payer MEDICAID, SELFPAY ==
[2024-01-11 17:10] LABS: Basophils # 0.1 K/mm3 (0-0.2); Basophils % 1.4 % (0.1-2.0); Eosinophils # 0.1 K/mm3 (0.0-0.4); Eosinophils % 1.6 % (0.1-12.0); Hematocrit 43.3 % (37.0-47.0); Hemoglobin 13.8 g/dL (12.2-16.2); Lymphocytes # 1.8 K/mm3 (0.7-4.5); Lymphocytes % 20.3 % (10-50); Mean Corpuscular HGB Conc 31.9 g/dL (31.8-35.4); Mean Corpuscular Hemoglobin 31.7 pg (27.0-31.2); Mean Corpuscular Volume 99.4 fl (81-99); Mean Platelet Volume 10.4 fl (7.4-10.4); Monocytes # 0.6 K/mm3 (0.1-1.0); Monocytes % 6.7 % (1.7-9.3); Neutrophils # 6.3 K/mm3 (1.8-7.8); Platelet Count 287 K/mm3 (142-424); Red Blood Count 4.36 M/mm3 (4.20-5.40); Red Cell Distribution Width 13.1 % (11.5-17.5); White Blood Count 8.9 K/mm3 (4.8-10.8)
[2024-01-11 18:56] LABS: HCG,Quantitative 179050 mIU/ml (0-5.42)
[2024-01-13 10:13] LABS: Rubella Antibodies, IgG 1.06 index (Immune >0.99)
[2024-01-13 12:18] LABS: Progesterone 15.3 ng/mL (.)
[2024-01-13 13:11] LABS: Rapid Plasma Reagin Ab Titer Non Reactive titer (NonRea<1:1)
[2024-01-13 14:17] LABS: Hepatitis B Surface Antigen Negative (Negative)
[2024-01-14 07:12] LABS: HIV Screen 4th Generation wRfx Non Reactive (Non Reactive)
[2024-01-15 14:19] LABS: HCV Ab Reactive (Non Reactive)
== END 2024-01-11 23:59 | disposition home or self-care (01) ==
LOC: LAB 15:51
PROVIDERS: Visit Provider Nurse Practitioner Obstetrics & Gynecology
DX: O26.891 Other specified pregnancy related conditions, first trimester (principal); Z3A.08 8 weeks gestation of pregnancy; N92.6 Irregular menstruation, unspecified
CPT/HCPCS: 36415; 84144; 84702; 85025; 86593; 86703; 86762; 86850; 87086; 87340; 87522; G0432

== ENCOUNTER 2024-01-18 10:29 | Outpatient (CLI) | payer MEDICAID, SELFPAY ==
--- NOTE | 2024-01-18 10:29 | US_ITS ---
PROCEDURE: US OB <= 14 WEEKS FETUS CLINICAL INDICATION: Dates and Viability COMPARISON: No exams were available for comparison FINDINGS: Transvaginal sonographic images of the pelvis were obtained. From her last menstrual period she is 9weeks 5days. An intrauterine gestational sac is present with a pole with a crown-rump length of 2.69cm This correlates to a gestational age of 9weeks 4days. heart tones are present with an FHR of 179bpm. Yolk sac is noted. The yolk sac measures 6.3mm. There is a small subchorionic hemorrhage inferiorly. The right ovary is seen and appears normal. There appears to be a corpus luteum measuring 2.0 cm in the right ovary. The left ovary is seen and appears normal. There is no fluid in the cul-de-sac. IMPRESSION: 1. Viable fetus within the uterine cavity. 2. The fetus measures 9 weeks 4 days. This correlates with her last menstrual period and her LIBRA will remain 08/17/2024. 3. Both ovaries are seen and appear normal. 4. No fluid in the cul-de-sac. Dictated by: Cas Roberts MD 01/18/2024 13:37 Cas Roberts MD in OV 01/18/2024 13:37
== END 2024-01-18 23:59 | disposition home or self-care (01) ==
LOC: RAD 10:29
PROVIDERS: PCP Nurse Practitioner Obstetrics & Gynecology; Visit Provider Nurse Practitioner Obstetrics & Gynecology
DX: O36.80X0 Pregnancy with inconclusive fetal viability, not applicable or unspecified (principal); Z3A.09 9 weeks gestation of pregnancy; F15.10 Other stimulant abuse, uncomplicated
CPT/HCPCS: 76801

== ENCOUNTER 2024-04-03 12:46 | Outpatient (CLI) | payer MEDICAID, SELFPAY ==
--- NOTE | 2024-04-03 12:47 | US_ITS ---
PROCEDURE: US OB /MATERNAL DETAIL CLINICAL INDICATION: 20 week anatomy scan COMPARISON: No exams were available for comparison FINDINGS: Transabdominal sonographic images of the pelvis were obtained. From her established due date she is 20 weeks 4 days. Single viable intrauterine gestation. Cephalic position. Placenta: Posteriorplacenta grade 1. There is an average amount of fluid. The cervix appears satisfactory. Closed and measuring 3.76 cm in length. Complete survey performed and was unremarkable on the submitted images as in PACS. No discrete anomalies identified on survey imaging by technologist. Active fetus. Three-vessel cord with satisfactory umbilical cord insertion. 4- chamber heart noted. Situs, aortic arch, LVOT, RVOT, three-vessel view appear normal. Survey of brain & ventricles Unremarkable. Thalamus and choroid plexus appear normal. Face and neck survey unremarkable. Profile, nasion, lips and nose appeared normal. Diaphragm and chest views unremarkable. Abdomen: Both kidneys noted and unremarkable. There is rim minimal renal pelvis dilation measuring 4.0 mm in 1 kidney stomach and bladder noted and satisfactory. Spine: Survey of the spine satisfactory with no anomalies identified nor imaged. Cervical, thoracic, lower spine appear normal. Both arms and legs noted. Amniotic Fluid: Adequate. MVP 4.12 cm. Measurements: Average ultrasound age 20weeks 1day. Estimated due date by ultrasound age 1208/20/2024. Estimated weight 341g BPD = 19weeks 6days HC = 20weeks 0 days AC = 20weeks 5days FL = 20weeks 0 days Growth Percentile= 28 Heart Rate = 128bpm Humerus = 20weeks 5days HC/AC is 1.13 FL/BPD is 0.7 FL/AC is 0.21 IMPRESSION: 1. Viable fetus in the cephalic presentation with a posterior placenta grade 1. 2. The fluid is within normal limits. MVP 4.12 cm. 3. Anatomical scan appears normal. 4. There is 4 mm of renal pelvis dilation on 1 kidney. The cisterna magna and cerebellum were not well visualized today. 5. biometry is consistent with the dates. 6. Suggest repeat scan at 20 weeks to look at the renal pelvis dilation and the posterior brain. Dictated by: Cas Roberts MD 04/03/2024 16:47 Cas Roberts MD in OV 04/03/2024 16:47
== END 2024-04-03 23:59 | disposition home or self-care (01) ==
LOC: RAD 12:47
PROVIDERS: PCP Nurse Practitioner Obstetrics & Gynecology; Visit Provider Nurse Practitioner Obstetrics & Gynecology
DX: Z36.89 Encounter for other specified antenatal screening (principal); Z3A.20 20 weeks gestation of pregnancy
CPT/HCPCS: 76811

== ENCOUNTER 2024-05-22 11:29 | Outpatient (CLI) | payer MEDICAID, SELFPAY ==
[2024-05-22 12:02] LABS: Basophils % 0.3 % (0.1-2.0); Eosinophils # 0.4 K/mm3 (0.0-0.4); Eosinophils % 3.6 % (0.1-12.0); Hematocrit 34.1 % (37.0-47.0); Hemoglobin 11.1 g/dL (12.2-16.2); Lymphocytes # 1.7 K/mm3 (0.7-4.5); Lymphocytes % 17.7 % (10-50); Mean Corpuscular HGB Conc 32.7 g/dL (31.8-35.4); Mean Corpuscular Volume 101.1 fl (81-99); Mean Platelet Volume 9.7 fl (7.4-10.4); Monocytes # 0.4 K/mm3 (0.1-1.0); Monocytes % 4.6 % (1.7-9.3); Neutrophils # 7.1 K/mm3 (1.8-7.8); Neutrophils % 73.7 % (37.0-80.0); Platelet Count 325 K/mm3 (142-424); Red Blood Count 3.37 M/mm3 (4.20-5.40); Red Cell Distribution Width 13.4 % (11.5-17.5); White Blood Count 9.7 K/mm3 (4.8-10.8)
[2024-05-22 12:11] LABS: Glucose,Fasting 71 mg/dl (74-100)
[2024-05-22 15:06] LABS: Glucose 1 Hour 89 mg/dL (74-100)
[2024-05-23 13:12] LABS: Rapid Plasma Reagin Ab Titer Non Reactive titer (NonRea<1:1)
== END 2024-05-22 23:59 | disposition home or self-care (01) ==
LOC: LAB 11:30
PROVIDERS: Visit Provider Obstetrics & Gynecology
DX: Z34.90 Encounter for supervision of normal pregnancy, unspecified, unspecified trimester (principal)
CPT/HCPCS: 36415; 82951; 85025; 86593

== ENCOUNTER 2024-05-29 14:19 | Outpatient (CLI) | payer MEDICAID, SELFPAY ==
--- NOTE | 2024-05-29 14:28 | US_ITS ---
PROCEDURE: US OB FOLLOW UP CLINICAL INDICATION: renal pelvis dilation/posterior brain of baby-f/u COMPARISON: US US OB <= 14 WEEKS FETUS from 01/18/2024 US US OB /MATERNAL DETAIL from 04/03/2024 FINDINGS: Transabdominal sonographic images of the pelvis were obtained. The following parameters are obtained: From her established due date she is 28weeks 4days Viable fetus in the cephalic presentation with a posterior placenta grade 1. The cervix measures 4.4 cm heart rate: 135bpm bpm. BPD: 27weeks 1day, 6 percentile HC: 28weeks 3days, 14 percentile AC: 29weeks 3days, 67 percentile FL: 28weeks 4days, 33 percentile HC/AC: 1.04 FL/BPD: 0.8 FL/AC: 0.21 Growth percentile: 46 Amniotic fluid index: 12.53cm, MVP 4.73 cm. No obvious anomalies evident. profile seen, stomach, bladder, kidneys, three-vessel cord, four chamber heart appear normal. Cerebellum and cisterna magna appear normal today. There is unilateral renal pelvis dilation of 2.5 mm. Considered normal. IMPRESSION: 1. Viable fetus in BREECH presentation with a posterior placenta grade 1. 2. The fluid is within normal limits with an amniotic fluid index 12.53 cm. MVP 4.73 cm. 3. There has been good interval growth with the fetus currently 46 percentile. 4. Limited anatomical scan appears normal. 5. Cerebellum and cisterna magna appear normal. 6. The previously described unilateral appear renal pelvis dilation is now minimal and measures 2.5 mm. Dictated by: Cas Roberts MD 05/29/2024 16:47 Cas Roberts MD in OV 05/29/2024 16:47
== END 2024-05-29 23:59 | disposition home or self-care (01) ==
LOC: RAD 14:20
PROVIDERS: Visit Provider Nurse Practitioner Obstetrics & Gynecology
DX: Z36.2 Encounter for other antenatal screening follow-up (principal); F19.90 Other psychoactive substance use, unspecified, uncomplicated; R82.5 Elevated urine levels of drugs, medicaments and biological substances; F15.10 Other stimulant abuse, uncomplicated; O99.323 Drug use complicating pregnancy, third trimester; B19.20 Unspecified viral hepatitis C without hepatic coma; Z3A.28 28 weeks gestation of pregnancy; Z98.891 History of uterine scar from previous surgery
CPT/HCPCS: 76816

== ENCOUNTER 2024-08-01 15:43 | Outpatient (CLI) | payer MEDICAID, SELFPAY | END 2024-08-01 23:59 | disposition home or self-care (01) | LOC: LAB 15:45 | PROVIDERS: Visit Provider Obstetrics & Gynecology | DX: Z02.9 Encounter for administrative examinations, unspecified (principal) ==

== ENCOUNTER 2024-08-05 23:35 | Inpatient (IN) | payer MEDICAID, SELFPAY ==
--- OUTSIDE RECORDS SUMMARY | 2024-08-05 23:39 | XMS_ITS | Encounter Summary ---
Author Organization [facility] Address [address] [place] [address] Care Team Providers Care Optical Lab Technician Name Role Phone Sinan Borges MD Primary Care Provider [phone] Encounter Details Date Type Department Care Team (Late st Contact Info) Description 12/20/2015 9:43 AM EDT - 12/20/2015 11:59 PM EDT Hospital Encounter [facility] [address] [place] [phone] Milton Fajardo MD [address] [place] [address] [place] [address] Discharge Disposition: Home or Self Care Social History Tobacco Use Types Packs/Day Years Used Date Smoking Tobacco: Never Assessed Comments Unknown Sex and Gender Information Value Date Recorded Sex Assigned at Not on file Legal Sex Female 1:44 PM EDT Gender Identity Not on file Sexual Orientation Not on file documented as of this encounter Procedure Notes * Provider, No Known - 12/24/2015 12:00 AM EDTAssociated Order(s): EEG, INT [address] [address] ELECTROENCEPHALOGRAM REPORT PATIENT NAME: GINNY CRAIN ROOM NUMBER: VISIT NUMBER: [id number] DATE OF : 1995 AGE: 20Y DATE OF PROCEDURE: 12/20/2015 EEG#: REQUESTING PHYSICIAN: INDICATION: The patient is a 20-year-old female with seizures. CONDITIONS OF RECORDING: This is a routine digital EEG performed with the patient awake and drowsy. The International 10-20 system of electrode placement is utilized including 1 channel of EKG. Technical quality is good. FINDINGS: In the maximally alert state there is a well-formed posterior dominant rhythm in the 10 Hz range. There is no hemispheric asymmetry. There are no epileptiform discharges or electrographic seizures during the recording. Photic stimulation and hyperventilation were completed and produced no abnormal response. EKG was normal sinus rhythm. IMPRESSION: This is a normal awake and drowsy EEG. Milton Fajardo MD* ADL/ab Voice Rec. ID #[id number] Original Voice Rec. ID #[id number] Doc ID #[id number] Revision Count: 0 cc: Milton Fajardo MD* DO NOT TEXT EDIT THIS LINE :CEE: Authenticated by MILTON FAJARDO MD On 12/26/2015 02:43:40 PM documented in this encounter Plan of Treatment Not on file documented as of this encounter Procedures Procedure Name Priority Date/Time Associated Diagnosis Comments EEG, INT 12/24/2015 9:37 PM EDT MRI BRAIN WO CONTRAST Routine 12/20/2015 11:18 AM EDT documented in this encounter Results * EEG, INT (12/24/2015 9:37 PM EDT) 12/24/2015 9:37 PM EDT Narrative Procedure Note Provider, No Known - 12/24/2015 12:00 AM EDT [address] [address] ELECTROENCEPHALOGRAM REPORT PATIENT NAME: GINNY CRAIN ROOM NUMBER: VISIT NUMBER: [id number] DATE OF : 1995 AGE: 20Y DATE OF PROCEDURE: 12/20/2015 EEG#: REQUESTING PHYSICIAN: INDICATION: The patient is a 20-year-old female with seizures. CONDITIONS OF RECORDING: This is a routine digital EEG performed withthe patient awake and drowsy. The International 10-20 system of electrodeplacement is utilized including 1 channel of EKG. Technical quality is good. FINDINGS: In the maximally alert state there is a well-formed posterior dominant rhythm in the 10 Hz range. There is no hemispheric asymmetry.There are no epileptiform discharges or electrographic seizures during therecording. Photic stimulation and hyperventilation were completed and produced noabnormal response. EKG was normal sinus rhythm. IMPRESSION: This is a normal awake and drowsy EEG. Milton Fajardo MD* ADL/ab Voice Rec. ID #[id number] Original Voice Rec. ID #[id number] Doc ID #[id number] Revision Count: 0 cc: Milton Fajardo MD* DO NOT TEXT EDIT THIS LINE :CEE: Authenticated by MILTON FAJARDO MD On 12/26/2015 02:43:40 PM us See Report Interface INTERFACE NEEDS Final Resul t * MRI brain wo contrast (12/20/2015 11:18 AM EDT) Anatomical Region Laterality Modality Head, Neck N/A Magnetic Resonan ce 12/20/2015 11:1 8 AM EDT Narrative 12/20/2015 2:37 PM EDT EXAMINATION- MR BRAIN WITHOUT CONTRAST-12/20/2015- INDICATION- SEIZURES. TECHNIQUE- MR data sets of the brain were performed without intravenous contrast. ?? COMPARISON- NONE FINDINGS- 1. The diffusion weighted sequence is negative. There is no evidence of acute restricted diffusion. Acute ischemic insult is not identified. The ADC mapping exam is normal. 2. The T1 sagittal data set demonstrates only minimal tonsillar ectopia. Significant crowding or stenosis at the foramen magnum is not identified. The pituitary gland is normal. Midline structures are unremarkable. 3. Paranasal sinuses and mastoids are clear. The flow voids are unremarkable. Ventricular system is normal. 4. The FLAIR data sets are negative. There is no pathologic increased white matter signal. Vasculitis or demyelinating plaque is not identified. 5. The hippocampal data sets are normal. Significant hippocampus asymmetry or atrophy is not identified and no hippocampal signal alteration is noted. The basilar artery and basilar summit are normal. ?? IMPRESSION- Negative MR data sets of the brain. Active white matter disease, restricted diffusion, mass, hippocampal atrophy or signal alteration, structural lesion or acute focal MR abnormality is not identified within the brain. D- ??12/20/2015 E- ??12/20/2015 ? Reading RadiologistLeela MCKENO ? Releasing Kimmy MCKEON ? Released Date Time- 12/20/151436 ? Separator Operator- Sanjuana. Procedure Note Ken Wilcox MD - 12/20/2015 EXAMINATION- MR BRAIN WITHOUT CONTRAST-12/20/2015- INDICATION- SEIZURES. TECHNIQUE- MR data sets of the brain were performed without intravenous contrast. COMPARISON- NONE FINDINGS- 1. The diffusion weighted sequence is negative. There is no evidence of acute restricted diffusion. Acute ischemic insult is not identified. The ADC mapping exam is normal. 2. The T1 sagittal data set demonstrates only minimal tonsillar ectopia. Significant crowding or stenosis at the foramen magnum is not identified. The pituitary gland is normal. Midline structures are unremarkable. 3. Paranasal sinuses and mastoids are clear. The flow voids are unremarkable. Ventricular system is normal. 4. The FLAIR data sets are negative. There is no pathologic increased white matter signal. Vasculitis or demyelinating plaque is not identified. 5. The hippocampal data sets are normal. Significant hippocampus asymmetry or atrophy is not identified and no hippocampal signal alteration is noted. The basilar artery and basilar summit are normal. IMPRESSION- Negative MR data sets of the brain. Active white matter disease, restricted diffusion, mass, hippocampal atrophy or signal alteration, structural lesion or acute focal MR abnormality is not identified within the brain. D- 12/20/2015 E- 12/20/2015 Reading Kimmy MCKEON Releasing RadiologistLeela MCKEON Released Date Time- 12/20/151436 Separator OperatorLeela Wei. us Milton Fajardo MD IM MRI ORDERABLES Candy gilbert Result documented in this encounter Visit Diagnoses Not on filedocumented in this encounter Care Teams Optical Lab Technician Relationship Specialty Start Date End Date Sinan Borges MD [address] [place] [address] [place] [address] PCP - General 12/20/15 documented as of this encounter
--- OUTSIDE RECORDS SUMMARY | 2024-08-05 23:39 | XMS_ITS | Encounter Summary ---
Author Organization [facility] Address [address] [place] [address] Care Team Providers Care Glass Blowing Instructor Name Role Phone Sinan Borges MD Primary Care Provider [phone] Encounter Details Date Type Department Care Team (Late st Contact Info) Description 11/23/2016 2:30 PM EDT Office Visit [facility] [place] [address] [place] [address] Wheezing (Primary Dx); Bronchitis; Tobacco abuse Social History Tobacco Use Types Packs/Day Years Used Date Smoking Tobacco: Every Day Tobacco Cessation:Ready to Q uit: No; Counseling Given: No Comments Unknown Sex and Gender Information Value Date Recorded Sex Assigned at Not on file Legal Sex Female 1:44 PM EDT Gender Identity Not on file Sexual Orientation Not on file documented as of this encounter Last Filed Vital Signs Vital Sign Reading Time Taken Comments Blood Pressure - - Pulse 84 11/23/2016 2:31 PM EDT Temperature 36.4 ??C (97.6 ??F) 11/23/2016 2:31 PM ED T Respiratory Rate 18 11/23/2016 2:31 PM EDT Oxygen Saturation 99% 11/23/2016 2:31 PM EDT Inhaled Oxygen Concentration - - Weight - - Height - - Body Mass Index - - documented in this encounter Progress Notes * Kanika Read APRN - 11/23/2016 2:30 PM EDT Subjective Ginny Tripp is a 21 y.o. female. HPI Comments: 1 week duration of cough and congestion, fever 100.0 a few days ago. Using Benadryl. Used to have an inhaler, would have used it if she still had it. The following portions of the patient's history were reviewed and updated as appropriate: allergies, current medications, past family history, past medical history, past social history and past surgical history. Review of Systems Constitutional: Positive for fatigue and fever. HENT: Positive for congestion, ear pain, postnasal drip and sinus pressure. Negative for sore throat. Respiratory: Positive for cough. Negative for shortness of breath and wheezing. Objective Physical Exam Constitutional: She appears well-developed. HENT: Head: Normocephalic. Right Ear: Tympanic membrane is scarred. Left Ear: Tympanic membrane is scarred. Nose: Mucosal edema present. Mouth/Throat: Posterior oropharyngeal erythema present. Tonsils are 1+ on the right. Tonsils are 1+on the left. Eyes: Conjunctivae are normal. Pupils are equal, round, and reactive to light. Neck: Normal range of motion. Cardiovascular: Normal rate and regular rhythm. Pulmonary/Chest: Effort normal. She has wheezes. Assessment/Plan Diagnoses and all orders for this visit: Wheezing Bronchitis Tobacco abuse Other orders - amoxicillin-clavulanate (AUGMENTIN) 875-125 MG per tablet; Take 1 tablet by mouth 2 (Two) Times aDay for 10 days. - albuterol (PROVENTIL HFA;VENTOLIN HFA) 108 (90 BASE) MCG/ACT inhaler; Inhale 2 puffs Every 4 (Four) Hours As Needed for Wheezing for up to 30 days. - predniSONE (DELTASONE) 20 MG tablet; Take 1 tablet by mouth Daily for 5 days. documented in this encounter Plan of Treatment Not on file documented as of this encounter Visit Diagnoses Diagnosis Wheezing- Primary Bronchitis Bronchitis, not specified as acute or chronic Tobacco abuse Tobacco use disorder documented in this encounter Care Teams Glass Blowing Instructor Relationship Specialty Start Date End Date Sinan Borges MD [address] [place] [address] [place] [address] PCP - General 12/20/15 documented as of this encounter
--- OUTSIDE RECORDS SUMMARY | 2024-08-05 23:39 | XMS_ITS | Encounter Summary ---
Author Organization [facility] Address [address] [place] [address] Care Team Providers Care Piling Setter Name Role Phone Sinan Borges MD Primary Care Provider [phone] Encounter Details Date Type Department Care Team (Late st Contact Info) Description 11/17/2022 Orders Only [facility] [address] [facility], [address] [place] [address] Flavia Colon, HOUSEHOLD APPLIANCES SALESPERSON [address] [facility] [address] [place] [address] Encounter for surveillance of injectable contraceptive (Primary Dx) Social History Tobacco Use Types Packs/Day Years Used Date Smoking Tobacco: Every Day Cigarettes Smokeless Tobacco: Never Alcohol Use Standard Drinks/Week Comments Not Currently 0 (1 standard drink = 0.6 oz pur e alcohol) Humiliation, Afraid, Rape, and Kick questionnair e Answer Date Recorded Within the last year, have y ou been afraid of your partner or ex-partner? No 08/14/2022 Within the last year, have y ou been humiliated or emotionally abused in other ways by your partner or ex-partner? No Within the last year, have y ou been kicked, hit, slapped, or otherwise physically hurt by your partner or ex-partner? No 08/14/2022 Within the last year, have y ou been raped or forced to have any kind of sexual activity by your partner or ex-partner? No 08/14/2022 PHQ-2 Answer Date Recorded Patient Health Questionnaire-2 Score 0 08/14/2022 Comments Unknown Sex and Gender Information Value Date Recorded Sex Assigned at Not on file Legal Sex Female 8:42 PM EDT Gender Identity Not on file Sexual Orientation Not on file documented as of this encounter Plan of Treatment Not on file documented as of this encounter Visit Diagnoses Diagnosis Encounter for surveillance of injectable contraceptive- Primary documented in this encounter Additional Health Concerns Assessment Noted Time A fall risk assessment has been complete d for the patient 08/14/2022 8:43 AM EST documented as of this encounter Care Teams Piling Setter Relationship Specialty Start Date End Date Sinan Borges MD [address] [place], [place] [id number] PCP - General 01/10/21 documented as of this encounter
--- OUTSIDE RECORDS SUMMARY | 2024-08-05 23:39 | XMS_ITS | Encounter Summary ---
Author Organization [facility] Address [address] [place] [address] Care Team Providers Care Ramp Lead Name Role Phone Unavailable Primary Care Provider Unavailabl e Encounter Details Date Type Department Care Team (Late st Contact Info) Description 06/20/2014 - 04/10/2015 1:09 PM EDT Hospital Encounter [facility] [address] [place] [address] Jonah Hartmann MD [address] [place] [address] [address] [place] [address] Social History Tobacco Use Types Packs/Day Years Used Date Smoking Tobacco: Never Assessed Comments Unknown Sex and Gender Information Value Date Recorded Sex Assigned at Not on file Legal Sex Female 1:44 PM EDT Gender Identity Not on file Sexual Orientation Not on file documented as of this encounter Plan of Treatment Not on file documented as of this encounter Visit Diagnoses Not on filedocumented in this encounter
--- OUTSIDE RECORDS SUMMARY | 2024-08-05 23:39 | XMS_ITS | Encounter Summary ---
Author Organization [facility] Address [address] [place] [address] Care Team Providers Care Valving Machine Operator Name Role Phone Sinan Borges MD Primary Care Provider [phone] Encounter Details Date Type Department Care Team (Latest Contact Info) Description 08/14/2022 Travel Social History Tobacco Use Types Packs/Day Years [...] on file Sexual Orientation Not on file COVID-19 Exposure Response Date Recorded In the last 10 days, have yo u been in contact with someone who was confirmed or suspected to have Coronavirus/COVID-19? No / Unsure 08/14/2022 8:20 AM EST documented as of this encounter Plan of Treatment Not on file documented as of this encounter Visit Diagnoses Not on filedocumented in this encounter Additional Health Concerns Assessment Noted Time A fall risk assessment has been complete d for the patient 08/14/2022 8:43 AM EST documented as of this encounter Care Teams Valving Machine Operator Relationship Specialty Start Date End Date Sinan Borges MD [address] [place], [place] [id number] PCP - General 01/10/21 documented as of this encounter
--- OUTSIDE RECORDS SUMMARY | 2024-08-05 23:39 | XMS_ITS | Encounter Summary ---
Author Organization [facility] Address [address] [place] [address] Care Team Providers Care Engineering Associate Name Role Phone Unavailable Primary Care Provider Unavailabl e Encounter Details Date Type Department Care Team (Late st Contact Info) Description 05/02/2014 Office Visit Converted [facility] [address] [facility] [address] [place] [address] Jonah Hartmann MD [address] [place] [address] Social History Tobacco Use Types Packs/Day Years Used Date Smoking Tobacco: Never Assessed Comments Unknown Sex and Gender Information Value Date Recorded Sex Assigned at Not on file Legal Sex Female 1:44 PM EDT Gender Identity Not on file Sexual Orientation Not on file documented as of this encounter Last Filed Vital Signs Vital Sign Reading Time Taken Comments Blood Pressure 102/78 05/02/2014 8:35 AM EDT Pulse 60 05/02/2014 8:35 AM EDT Temperature - - Respiratory Rate 10 05/02/2014 8:35 AM EDT Oxygen Saturation - - Inhaled Oxygen Concentration - - Weight 69.8 kg (153 lb 15.9 oz) 05/02/2014 8:35 AM EDT Height 165.1 cm (5' 5 ) 05/02/2014 8:35 AM EDT Body Mass Index 25.63 05/02/2014 8:35 AM EDT documented in this encounter Progress Notes * Jonah Hartmann MD - 05/02/2014 8:30 AM EDT PCP/Referring Physician Requesting Provider: Dr. Sinan Borges Primary Care Provider: Dr. Sinan Borges Chief Complaint 1. Seizure History of Present Illness Seizure: GINNY CRAIN presents with complaints of seizure. Associated symptoms include postictal confusion, but no bladder incontinence, no bowel incontinenceand no postictal (ag) paralysis. The patient presents with complaints of multiple seizures, described as an aura, a blank stare and a generalized motor seizure starting about 5 years ago. She is currently experiencing multiple seizures. Symptoms are improving. Pertinent Medical History: drug abuse and generalized motor seizures. Abnormal Sensation: The patient is being seen for a consultation regarding abnormal sensation. Symptoms: anesthesia, numbness, paresthesia and pins and needle sensation, but no dysesthesia, no hyperesthesia, no hot sensation and no cold sensation. The patient is currently experiencing symptoms. Associated symptoms: no generalized weakness, no localized weakness, no muscle spasm, no muscle twitching, no neck pain, no back pain, no joint stiffness, no bladder dysfunction and no bowel dysfunction. Seizure Disorder (Brief): Typical seizure symptoms: aura, blank stare, altered mental status, loss of consciousness and generalized motor seizure. Typical associated symptoms: amnesia for the seizureevent and postictal confusion, but no bladder incontinence and no bowel incontinence. Current treatment includes levetiracetam (Keppra). By report, there is good compliance with treatment, good tolerance of treatment and good symptom control. Review of Systems [facility] Complete ROS: Constitutional: feeling tired and chills. Eyes: negative. ENT: nosebleeds. Cardiovascular: negative. Respiratory: cough. Gastrointestinal: abdominal pain and nausea. Genitourinary (Male): negative. Genitourinary (Female): negative. Musculoskeletal: negative. Integumentary: itching. Neurological: headache, confusion, numbness and tingling. Psychiatric: anxiety, personality change and emotional problems. Endocrine: feelings of weakness, muscle weakness and hot flashes. Hematologic/Lymphatic: a tendency for easy bleeding and a tendency for easy bruising. Past Medical History 1. History of Seizure (780.39) Family History 1. Family history of diabetes mellitus (V18.0) Social History 1. Never smoker 2. No alcohol use 3. Single 4. Smoker (305.1) Current Meds Medication Name Instruction LevETIRAcetam 500 MG Oral Tablet TAKE 1 TABLET TWICE DAILY. Vitals Signs [Data Includes: Current Encounter] Recorded by : Kelsi Kelley at [id number] 08:35AM Heart Rate: 60 Respiration: 10 Systolic: 102 Diastolic: 78 Height: 5 ft 5 in Weight: 154 lb BMI Calculated: 25.63 BSA Calculated: 1.77 Physical Exam Constitutional General appearance: No acute distress, well appearing and well nourished. Head and Face Head and face: Normal, atraumatic. Eyes Ophthalmoscopic examination: Normal appearing optic disc and posterior segments. Neck Neck and thyroid: Normal, supple, trachea midline, no masses or thyromegaly. Cardiovascular Auscultation of heart: Normal rate and rhythm, normal S1 and S2, no murmurs. Carotid pulses: Normal, 2+ bilaterally. Peripheral vascular exam: Normal pulses throughout, no tenderness, erythema or swelling. Musculoskeletal Gait and station: Normal gait, stance and balance. Muscle strength: Normal strength throughout arms and legs. Muscle tone: No atrophy, abnormal movements, flaccidity, cogwheeling or spasticity. Neurologic Orientation to person, place, and time: Normal. Recent and remote memory: Demonstrates normal memory. Attention span and concentration: Normal thought process and attention span. Language: Names objects, able to repeat phrases and speaks spontaneously. Fund of knowledge: Normal vocabulary with appropriate knowledge of current events and past history. 1st cranial nerve: Normal. Optic nerve: Normal. 3rd, 4th, and 6th cranial nerves: Normal. 5th cranial nerve: Normal. 7th cranial nerve: Normal. 8th cranial nerve: Normal. 9th cranial nerve: Normal. 10th cranial nerve: Normal. 11th cranial nerve: Normal. 12th cranial nerve: Normal. Sensation: Normal. Reflexes: Normal in arms and legs. Coordination: Normal. Cortical function: Normal. Judgment and insight: Normal. Mood and affect: Normal. Radicular Testing: Normal. Assessment 1. Seizures (780.39) ?? Assessed By: Jonah Hartmann (Neurology); Last Assessed: 02 May 2014 2. 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 Assessed By: Jonah Hartmann (Neurology); Last Assessed: 02 May 2014 3. Paresthesia (782.0) ?? Assessed By: Jonah Hartmann (Neurology); Last Assessed: 02 May 2014 4. Smoker (305.1) ?? Assessed By: Jonah Hartmann (Neurology); Last Assessed: 02 May 2014 Plan 1. Electroencephalogram ( EEG ) ordered , reviewed or requested ( [facility] ) - 3650F Status: Active Requested for: [id number] 10:30AM 2. Levetiracetam ( Keppra ) Quant Status: Active Requested for: [id number] 3. MRI BRAIN WO CONTRAST - [id number] Status: Need Information - Financial Authorization Requested for: [id number] 10:30AM End of Encounter Meds Medication Name Instruction LevETIRAcetam 500 MG Oral Tablet TAKE 1 TABLET TWICE DAILY. Discussion/Summary Discussion Summary: Ms. Crain is a 19 y/o F referred to Neurology clinic for evaluation. She was seen at [facility] after a generalized tonic-clonic seizure last week. She has hx of two seizures when she was in 10th grade and one seizure in January 2014. The seizures in 10th grade occurred in the setting of overdose on Wellbutrin. Her father has hx of epilepsy. With the recent seizure, she has no recollection of it but reports an aura of paresthesias. She then had a GTC seizure with tongue biting and convulsions but no incontinence. She had a prolonged post-ictal period of confusion and was taken to the hospital. She underwent CT head which was unremarkable and labs. UDS was positive for cocaine metabolite though she denies use. She continues to have paresthesias in both hands and often has to shake her hands out at night. Neurologic and funduscopic exam is normal. Although some of her seizureshave been in the setting of drug OD or drug abuse, she appears to have a tendency to having seizures and does have first degree relative with epilepsy. Therefore, I do recommend she be treated with an antiepileptic and she will continue Keppra 500 mg BID which she has tolerated well so far. Will check Keppra level and obtain MRI brain and EEG as part of workup for new onset seizures. She has paresthesias in both hands and symptoms suggestive of CTS, but EMG/NCS is normal, and this is likely related to nerve irritation in the setting of stress/lack of sleep. We reviewed seizure education, stressed the importance of healthy lifestyle, regular sleep, avoiding drug/EtOH abuse and she was in understanding and all questions were addressed. The patient was counseled for three minutes on smoking cessation. We reviewed the diagnosis and treatment plan and medication side effect profile. The patient will follow up as scheduled. Review of Data: Referring MD records reviewed . ER records reviewed. CT reviewed. Future Appointments Date/Time Provider Specialty Site 05/25/2014 01:30 PM Jonah Hartmann M.D. Neurology [facility] [place] The patient was counseled regarding diagnostic results, instructions for management, risk factor reductions, prognosis, patient and family education, impressions, risks and benefits of treatment options and importance of compliance with treatment. Signatures Electronically signed by : Jonah Hartmann M.D.; May 02 2014 10:09AM EST (Author) documented in this encounter Miscellaneous Notes * Letter - Jonah Hartmann MD - 05/02/2014 8:30 AM EDT Chief Complaint 1. Seizure History of Present Illness Seizure: GINNY CRAIN presents with complaints of seizure. Associated symptoms include postictal confusion, but no bladder incontinence, no bowel incontinenceand no postictal (ag) paralysis. The patient presents with complaints of multiple seizures, described as an aura, a blank stare and a generalized motor seizure starting about 5 years ago. She is currently experiencing multiple seizures. Symptoms are improving. Pertinent Medical History: drug abuse and generalized motor seizures. Abnormal Sensation: The patient is being seen for a consultation regarding abnormal sensation. Symptoms: anesthesia, numbness, paresthesia and pins and needle sensation, but no dysesthesia, no hyperesthesia, no hot sensation and no cold sensation. The patient is currently experiencing symptoms. Associated symptoms: no generalized weakness, no localized weakness, no muscle spasm, no muscle twitching, no neck pain, no back pain, no joint stiffness, no bladder dysfunction and no bowel dysfunction. Seizure Disorder (Brief): Typical seizure symptoms: aura, blank stare, altered mental status, loss of consciousness and generalized motor seizure. Typical associated symptoms: amnesia for the seizureevent and postictal confusion, but no bladder incontinence and no bowel incontinence. Current treatment includes levetiracetam (Keppra). By report, there is good compliance with treatment, good tolerance of treatment and good symptom control. Review of Systems Constitutional: feeling tired and chills. Eyes: negative. ENT: nosebleeds. Cardiovascular: negative. Respiratory: cough. Gastrointestinal: abdominal pain and nausea. Genitourinary (Male): negative. Genitourinary (Female): negative. Musculoskeletal: negative. Integumentary: itching. Neurological: headache, confusion, numbness and tingling. Psychiatric: anxiety, personality change and emotional problems. Endocrine: feelings of weakness, muscle weakness and hot flashes. Hematologic/Lymphatic: a tendency for easy bleeding and a tendency for easy bruising. Past Medical History ?? History of Seizure (780.39) Family History ?? Family history of diabetes mellitus (V18.0) Social History ?? Never smoker ?? No alcohol use ?? Single ?? Smoker (305.1) Current Meds Medication Name Instruction LevETIRAcetam 500 MG Oral Tablet TAKE 1 TABLET TWICE DAILY. Vitals Signs [Data Includes: Current Encounter] Heart Rate: 60 Respiration: 10 Systolic: 102 Diastolic: 78 Height: 5 ft 5 in Weight: 154 lb BMI Calculated: 25.63 BSA Calculated: 1.77 Physical Exam Constitutional General appearance: No acute distress, well appearing and well nourished. Head and Face Head and face: Normal, atraumatic. Eyes Ophthalmoscopic examination: Normal appearing optic disc and posterior segments. Neck Neck and thyroid: Normal, supple, trachea midline, no masses or thyromegaly. Cardiovascular Auscultation of heart: Normal rate and rhythm, normal S1 and S2, no murmurs. Carotid pulses: Normal, 2+ bilaterally. Peripheral vascular exam: Normal pulses throughout, no tenderness, erythema or swelling. Musculoskeletal Gait and station: Normal gait, stance and balance. Muscle strength: Normal strength throughout arms and legs. Muscle tone: No atrophy, abnormal movements, flaccidity, cogwheeling or spasticity. Neurologic Orientation to person, place, and time: Normal. Recent and remote memory: Demonstrates normal memory. Attention span and concentration: Normal thought process and attention span. Language: Names objects, able to repeat phrases and speaks spontaneously. Fund of knowledge: Normal vocabulary with appropriate knowledge of current events and past history. 1st cranial nerve: Normal. Optic nerve: Normal. 3rd, 4th, and 6th cranial nerves: Normal. 5th cranial nerve: Normal. 7th cranial nerve: Normal. 8th cranial nerve: Normal. 9th cranial nerve: Normal. 10th cranial nerve: Normal. 11th cranial nerve: Normal. 12th cranial nerve: Normal. Sensation: Normal. Reflexes: Normal in arms and legs. Coordination: Normal. Cortical function: Normal. Judgment and insight: Normal. Mood and affect: Normal. Radicular Testing: Normal. Assessment 1. Seizures (780.39) ?? Assessed By: Jonah Hartmann (Neurology); Last Assessed: 02 May 2014 2. 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 Assessed By: Jonah Hartmann (Neurology); Last Assessed: 02 May 2014 3. Paresthesia (782.0) ?? Assessed By: Jonah Hartmann (Neurology); Last Assessed: 02 May 2014 4. Smoker (305.1) ?? Assessed By: Jonah Hartmann (Neurology); Last Assessed: 02 May 2014 Plan Epilepsy without status epilepticus, not intractable, Seizures ?? Electroencephalogram ( EEG ) ordered , reviewed or requested ( [facility] ) - 3650F Status: Active Requested for: [id number] 10:30AM ?? Levetiracetam ( Keppra ) Quant Status: Active Requested for: 02May2014 ?? MRI BRAIN WO CONTRAST - [id number] Status: Need Information - Financial Authorization Requested for: [id number] 10:30AM End of Encounter Meds Medication Name Instruction LevETIRAcetam 500 MG Oral Tablet TAKE 1 TABLET TWICE DAILY. Discussion/Summary Ms. Crain is a 19 y/o F referred to Neurology clinic for evaluation. She was seen at [facility] after a generalized tonic-clonic seizure last week. She has hx of two seizures when she was in 10th grade and one seizure in January 2014. The seizures in 10th grade occurred in the setting of overdose on Wellbutrin. Her father has hx of epilepsy. With the recent seizure, she has no recollection of it but reports an aura of paresthesias. She then had a GTC seizure with tongue biting and convulsions but no incontinence. She had a prolonged post-ictal period of confusion and was taken to the hospital. She underwent CT head which was unremarkable and labs. UDS was positive for cocaine metabolite though she denies use. She continues to have paresthesias in both hands and often has to shake her hands out at night. Neurologic and funduscopic exam is normal. Although some of her seizureshave been in the setting of drug OD or drug abuse, she appears to have a tendency to having seizures and does have first degree relative with epilepsy. Therefore, I do recommend she be treated with an antiepileptic and she will continue Keppra 500 mg BID which she has tolerated well so far. Will check Keppra level and obtain MRI brain and EEG as part of workup for new onset seizures. She has paresthesias in both hands and symptoms suggestive of CTS, but EMG/NCS is normal, and this is likely related to nerve irritation in the setting of stress/lack of sleep. We reviewed seizure education, stressed the importance of healthy lifestyle, regular sleep, avoiding drug/EtOH abuse and she was in understanding and all questions were addressed. The patient was counseled for three minutes on smoking cessation. We reviewed the diagnosis and treatment plan and medication side effect profile. The patient will follow up as scheduled. Referring MD records reviewed . ER records reviewed. CT reviewed. Future Appointments Date/Time Provider Specialty Site 05/25/2014 01:30 PM Jonah Hartmann M.D. Neurology [facility] [place] The patient was counseled regarding diagnostic results, instructions for management, risk factor reductions, prognosis, patient and family education, impressions, risks and benefits of treatment options and importance of compliance with treatment. Thank you very much for allowing me to participate in the care of this patient. If you have any questions, please do not hesitate to contact me. PCP/Referring Physician _PCP Requesting Physician: Requesting Provider: Dr. Sinan Borges Primary Care Provider: Dr. Sinan Borges Signatures Electronically signed by : Jonah Hartmann M.D.; May 02 2014 10:09AM EST (Author) documented in this encounter Plan of Treatment Not on file documented as of this encounter Visit Diagnoses Not on filedocumented in this encounter
--- OUTSIDE RECORDS SUMMARY | 2024-08-05 23:39 | XMS_ITS | Encounter Summary ---
Author Organization Healthcare Address [address] [place] [address] Care Team Providers Care Brush Fabrication Supervisor Name Role Phone Sinan Borges MD Primary Care Provider [phone] Encounter Details Date Type Department Care Team (Late st Contact Info) Description 05/02/2023 Telephone [facility] [address] [place] [address] Iam Mayen, WRAP KNITTING MACHINE OPERATOR, [facility] [address] [place] [address] Social History Tobacco Use Types Packs/Day Years [...] Date Recorded Patient Health Questionnaire-2 Score 0 04/30/2023 PHQ-2A Answer Date Recorded Patient Health Questionnaire-2 Score 0 04/30/2023 Comments Unknown Sex and Gender Information Value Date Recorded Sex Assigned at Not on file Legal Sex Female 8:42 PM EDT Gender Identity Not on file Sexual Orientation Not on file documented as of this encounter Miscellaneous Notes * Telephone Encounter - Sharri Sethi - 05/04/2023 8:23 AM EDT Appt philip for November 2023. Pt aware. No further questions at this time * Telephone Encounter - Sharri Sethi - 05/04/2023 8:23 AM EDT ----- Message from Iam Mayen APRN, DNP sent at 05/02/2023 11:28 AM EDT ----- Regarding: Move visit to November 2023 Please move this patient's visit with Hepatology to November 2023. Thank you documented in this encounter Plan of Treatment Not on file documented as of this encounter Visit Diagnoses Not on filedocumented in this encounter Additional Health Concerns Assessment Noted Time A fall risk assessment has been complete d for the patient 04/30/2023 12:20 PM EDT A Body Mass Index follow-up plan has been documented for the patient 05/02/2023 11:25 AM EDT documented as of this encounter Care Teams Brush Fabrication Supervisor Relationship Specialty Start Date End Date Sinan Borges MD [address] [place], [place] [id number] PCP - General 01/10/21 documented as of this encounter
--- OUTSIDE RECORDS SUMMARY | 2024-08-05 23:39 | XMS_ITS | Encounter Summary ---
Author Organization [facility] Address [address] [place] [address] Care Team Providers Care [employer] Driver Name Role Phone Sinan Borges MD Primary Care Provider [phone] Encounter Details Date Type Department Care Team (Latest Contact Info) Description 04/30/2023 Travel Social History Tobacco Use Types Packs/Day [...] documented as of this encounter Care Teams [employer] Driver Relationship Specialty Start Date End Date Sinan Borges MD [address] [place], [place] [phone] PCP - General 01/10/21 documented as of this encounter
--- OUTSIDE RECORDS SUMMARY | 2024-08-05 23:39 | XMS_ITS | Encounter Summary ---
Author Organization [facility] Address [address] [place] [address] Care Team Providers Care Elementary Librarian Name Role Phone Sinan Borges MD Primary Care Provider [phone] Encounter Details Date Type Department Care Team (Latest Contact Info) Description 08/19/2022 Travel Social History Tobacco Use Types Packs/Day [...] suspected to have Coronavirus/COVID-19? No / Unsure 08/19/2022 1:03 PM EST documented as of this encounter Plan of Treatment Not on file documented as of this encounter Visit Diagnoses Not on filedocumented in this encounter Additional Health Concerns Assessment Noted Time A fall risk assessment has been complete d for the patient 08/14/2022 8:43 AM EST documented as of this encounter Care Teams Elementary Librarian Relationship Specialty Start Date End Date Sinan Borges MD [address] [place], [place] [id number] PCP - General 01/10/21 documented as of this encounter
--- OUTSIDE RECORDS SUMMARY | 2024-08-05 23:39 | XMS_ITS | Encounter Summary ---
Author Organization [facility] Address [address] [place] [address] Care Team Providers Care Asbestos Cloth Inspector Name Role Phone Unavailable Primary Care Provider Unavailabl e Encounter Details Date Type Department Care Team (Late st Contact Info) Description 05/02/2014 9:56 AM EDT - 05/02/2014 11:59 PM EDT Hospital Encounter [facility] [address] [place] [address] Jonah Hartmann MD [address] [facility] [address] [place] [address] Social History Tobacco Use Types Packs/Day Years [...] Procedure Name Priority Date/Time Associated Diagnosis Comments LEVETIRACETAM LEVEL Routine 05/02/2014 1 0:00 AM EDT documented in this encounter Results * Levetiracetam level (Keppra) (05/02/2014 10:00 AM EDT) Levetiracetam 17.2 5.0 - 63.0 ug/mL [facility] Blood specimen (specimen) 05/02/2014 10:00 AM EDT Narrative [facility] - 05/04/2014 9:27 AM EDT Specimen Type: Blood PERFORMED AT: [facility] [address] [id number] FINANCIAL SALES MANAGER: Joe Duval MD ?? PHONE: [phone] us Jonah Hartmann MD LAB BLOOD ORDERABLES Fi nal Result Performing Organization Address City/State/[facility] Co de Phone Number [facility] [address] [place] [address], documented in this encounter Visit Diagnoses Not on filedocumented in this encounter
--- OUTSIDE RECORDS SUMMARY | 2024-08-05 23:39 | XMS_ITS | Clinical Summary ---
Author Organization [facility] Address [address] [place] [address] Care Team Providers Care Water Fabricator Operator Name Role Phone Sinan Borges MD Primary Care Provider [phone] Allergies No known active allergies Medications levETIRAcetam (KEPPRA) 500 MG tablet Take 500 mg by mouth 2 (Two) Times a Day. Active sertraline (ZOLOFT) 100 MG tablet Take 100 mg by mouth Daily. Active amoxicillin-clav ulanate (AUGMENTIN) 875-125 MG per tabletIndication s:Lymphadenitis Take 1 tablet by mouth 2 (Two) Times a Day. 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 Not on file 05/2023 Does Anyone Keep You from Co ntacting Others or Doint Things Outside the Home? Not on file 06/08/2023 Physical Sign of Abuse Present Not on file 1 Housing Stability Answer Date Recorded Current Living Arrangements Not on file 05/30 Potentially Unsafe Housing Conditions Not on agustina e 06/08/2023 Family and Community Support Answer Uriah e Recorded Help with Day-to-Day Activities Not on file 06/08/2023 Lonely or Isolated Not on file 06/08/2023 Employment Answer Date Recorded Do you want help finding or keeping work or a miranda b? Not on file 06/08/2023 Disabilities Answer Date Recorded Concentrating, Remembering, or Making Decisions Difficulty Not on file 06/08/2023 Doing Errands Independently Difficulty Not on fi le 06/08/2023 Education Answer Date Recorded Help with school or training? Not on file Preferred Language Not on file 06/08/2023 Comments No Sex and Gender Information Value Date Recorded Sex Assigned at Not on file Legal Sex Female 1:44 PM EDT Gender Identity Not on file Sexual Orientation Not on file Last Filed Vital Signs Vital Sign Reading Time Taken Comments Blood Pressure 110/68 06/02/2018 1:06 PM EDT Pulse 74 06/02/2018 1:06 PM EDT Temperature 36.7 ??C (98 ??F) 06/02/2018 1:06 PM EDT Respiratory Rate 14 06/02/2018 1:06 PM EDT Oxygen Saturation 98% 06/02/2018 1:06 PM EDT Inhaled Oxygen Concentration - - Weight 56.9 kg (125 lb 6.4 oz) 06/02/2018 1:06 P M EDT Height 167.6 cm (5' 6 ) 06/02/2018 1:06 PM EDT Body Mass Index 20.24 06/02/2018 1:06 PM EDT Plan of Treatment Health Maintenance Due Date Last Done Comments Annual Gynecologic Pelvic and Breast Exam 1994 Pneumococcal Vaccine 0-64 (1 of 2 - PCV) 01/29/2000 Hepatitis B (1 of 3 - 19+ 3-dose series) 2013 TDAP/TD VACCINES (1 - Tdap) 2013 ANNUAL PHYSICAL 06/02/2018 HEPATITIS C SCREENING 06/02/2018 PAP SMEAR 06/02/2018 INFLUENZA VACCINE 02/28/2024 COVID-19 Vaccine ( - 2023- season) 2024 Care Teams Water Fabricator Operator Relationship Specialty Start Date End Date Sinan Borges MD [address] [place] [address] [place] [address] PCP - General 12/20/15
--- OUTSIDE RECORDS SUMMARY | 2024-08-05 23:39 | XMS_ITS | Encounter Summary ---
Author Organization [facility] Address [address] [place] [address] Care Team Providers Care Bullion Weigher Name Role Phone Sinan Borges MD Primary Care Provider Encounter Details Date Type Department Care Team (Late st Contact Info) Description 03/26/2023 Orders Only [facility] [address] [place] [address] Iam Mayen, APRON WORKER, DNP [address] [place] [address] Healthcare maintenance (Primary Dx); Exposure to hepatitis C Social History Tobacco Use Types Packs/Day Years Used Date Smoking Tobacco: Never Assessed Humiliation, Afraid, Rape, and Kick questionnair e [...] on file documented as of this encounter Results * (ABNORMAL) Hepatitis C Antibody (04/30/2023 1:36 PM EDT) Hepatitis C Antibody Positive( A) Negative 04/30/2023 3:48 PM EDT [facility] Comment:This specimen is harry ng sent for confirmation by RT-PCR. Blood Venous blood specimen / Unknown Venipuncture / Unknown 04/30/2023 1:36 PM EDT 04/30/2023 1:36 PM EDT us Iam Mayen APRON WORKER, DNP LAB BLOOD ORDERABLES F inal Result [facility] [address] [place] [address] documented in this encounter Visit Diagnoses Diagnosis Healthcare maintenance- Primary Exposure to hepatitis C Contact with or exposure to other viral diseases documented in this encounter Additional Health Concerns Assessment Noted Time A fall risk assessment has been complete d for the patient 08/14/2022 8:43 AM EST documented as of this encounter Care Teams Bullion Weigher Relationship Specialty Start Date End Date Sinan Borges MD [address] [id number] PCP - General 01/10/21 documented as of this encounter
--- OUTSIDE RECORDS SUMMARY | 2024-08-05 23:39 | XMS_ITS | Encounter Summary ---
Author Organization [facility] Address [address] [id number] Care Team Providers Care Primer Supervisor Name Role Phone Sinan Borges MD Primary Care Provider [phone] Encounter Details Date Type Department Care Team (Late st Contact Info) Description 04/30/2023 1:00 PM EDT Ancillary Procedure [facility] [address] [place] [address] Social History Tobacco Use Types Packs/Day Years [...] as of this encounter Miscellaneous Notes * Procedures - Trini Hall, PharmD - 04/30/2023 1:00 PM EDTAssociated Order(s): GI Fibroscan Pre-Procedure Diagnose(s): Liver disease, unspecified; Hepatitis C virus infection without hepatic coma, unspecified chronicity GI Fibroscan Performed by: Trini Hall PharmD Authorized by: Iam Mayen, KEYLA, COLLEEN GI FIBROSCAN Procedure: VCTE using XL+ probe Indication: Chronic Hepatitis C Discussed: Oral and written explanations of the FibroScan VCTE test procedure provided to the patient. Patient verbalized understanding and consented to proceed with workup of potential HCV infection, and subsequent treatment if indicated, via Collaborative Care Agreement. This discussion took place with the patient at bedside. Procedure Note: Patient was placed in a supine position with right arm in maximum abduction to allow optimal exposure of right lateral abdomen. Patient was briefly assessed, identifying the terminus of the xyphoid process and locating an ideal transient elastography testing site, mid-line and lateral to this point. Patient was instructed to breathe normally and remain stationary during the test process. Pre-measurement data confirmed the transient elastography probe was centered over the liver parenchyma. A series of ten 50Hz mechanical pulses were applied with controlled application pressureto induce a mechanical shear wave in the liver tissue. For each measurement, the shear wave propagation speed was detected, displayed and converted to its equivalent liver stiffness value in kilopascals. Skin to liver capsule distance and shear wave characteristics were monitored during the entire examination to assure data quality. Median liver stiffness measurement and interquartile range were c alculated and displayed in real time. Acquired measurement data was stored and submitted for my review and interpretation. Patient tolerated the procedure well and was discharged without incident. Height: Ht Readings from Last 1 Encounters: 04/30/23 1.676 m (5' 6 ) Weight: Wt Readings from Last 1 Encounters: 04/30/23 101 kg (222 lb 14.2 oz) BMI 36 When was your last food intake? >3 hours When was your last (non-alcoholic) drink? >3 hours When was your last alcoholic drink? States she does not drink alcohol Have you ever used a needle to inject drugs? Yes If yes, are you currently engaged in SSP and/or MAT: No Have you ever taken a DAA before (even just one dose)? No Findings: Patient had a median Liver Stiffness Score of 10.1 kilopascal (kPa). The Interquartile Range to median ratio was 13% with a CAP score of 250 dB/m. INTERPRETATION LABS: Hep C Ab (+) / HCV RNA (+) / HBsAg (-) / HBcAb total (+) / HIV (-) Lab Results Component Value Date HEPATITIS A ANTIBODY IGG Negative 04/30/2023 HEP B S AG Negative 04/30/2023 HEP B S AB Positive (A) 04/30/2023 HEP B C TOTAL AB Positive (A) 04/30/2023 HEPATITIS C AB INT Positive (A) 04/30/2023 RAPID HIV 1X2 Non Reactive 04/30/2023 FIB-4 Calculation: 0.39 at 04/30/2023 1:36 PM Calculated from: SGOT/AST: 35 U/L at 04/30/2023 1:36 PM SGPT/ALT: 42 U/L at 04/30/2023 1:36 PM Platelets: 405 10*3/uL at 04/30/2023 1:36 PM Age: 28 years Lab Results Component Value Date INR 0.9 04/30/2023 ALBUMIN 4.7 04/30/2023 BILITOT 1.2 (H) 04/30/2023 ALKPHOS 73 04/30/2023 GLUCOSE 86 04/30/2023 NA 141 04/30/2023 AST 35 04/30/2023 ALT 42 (H) 04/30/2023 PLT 405 (H) 04/30/2023 INTERPRETATION: CRISTEL interpreted the examination results by reviewing the shear wave measurement images, the number of images, and iQR/Median ratio. Comparison to threshold values for Controlled Attenuation Parameter(CAP) and Liver Stiffness was reviewed. Considering the above-mentioned diagnosis and history, the current scan is considered: Reliable. The fibrosis is most consistent with: F3: Advanced fibrosis Note: Any food or drink within 3 hours of exam can overestimate liver stiffness up to 3.8 kPa aboveactual value. If previous DAA/SVR, this test should not be used to determine if HCC surveillance can be stopped. Please review indication and potential limitations of the Fibroscan for a more accurate assessment. Higher scores are associated with a higher specificity (low false positive rate) in predicting advanced fibrosis (>= F2) or cirrhosis (F4). Lower scores are associated with a higher specificity in ruling out advanced fibrosis (>= F2) or cirrhosis (F4). Please also review providernote for comprehensive fibrosis assessment. The steatosis is most consistent with: S2: Moderate steatosis. TREATMENT PLAN: # HCV: - Please review [facility] and provider notes. # F3 advanced fibrosis: - Refer to [facility] for ongoing fibrosis and/or HCC surveillance. documented in this encounter Plan of Treatment Not on file documented as of this encounter Procedures Procedure Name Priority Date/Time Associated Diagnosis Comments GI FIBROSCAN Routine 04/30/2023 1:00 PM EDT Liver disease, unspecified Hepatitis C virus infection without hepatic coma, unspecified chronicity documented in this encounter Visit Diagnoses Not on filedocumented in this encounter Additional Health Concerns Assessment Noted Time A fall risk assessment has been complete d for the patient 04/30/2023 12:20 PM EDT A Body Mass Index follow-up plan has been documented for the patient 05/02/2023 11:25 AM EDT documented as of this encounter Care Teams Primer Supervisor Relationship Specialty Start Date End Date Sinan Borges MD [address] [place] [address] PCP - General 01/10/21 documented as of this encounter
--- OUTSIDE RECORDS SUMMARY | 2024-08-05 23:39 | XMS_ITS | Encounter Summary ---
Author Organization [facility] Address [address] [place] [address] Care Team Providers Care Signal Supervisor Name Role Phone Sinan Borges MD Primary Care Provider [phone] Reason for Visit * Reason Comments Sinus Problem Sore Throat Encounter Details Date Type Department Care Team (Latest Contact Info) Description 06/02/2018 1:15 PM EDT Office Visit [facility] [address] [facility] [place] [address] Lymphadenitis (Primary Dx); Sinus congestion; Sore throat Social History Tobacco Use Types Packs/Day Years Used Date Smoking Tobacco: Every Day Comments No Sex and Gender Information Value [...] Mass Index 20.24 06/02/2018 1:06 PM EDT documented in this encounter Patient Instructions * Patient Instructions* Valentin Alvares APRN - 06/02/2018 1:15 PM EDT Lymphadenopathy Lymphadenopathy refers to swollen or enlarged lymph glands, also called lymph nodes. Lymph glands are part of your body's defense (immune) system, which protects the body from infections, germs, and diseases. Lymph glands are found in many locations in your body, including the neck, underarm, and groin. Many things can cause lymph glands to become enlarged. When your immune system responds to germs, such as viruses or bacteria, infection-fighting cells and fluid build up. This causes the glands to grow in size. Usually, this is not something to worry about. The swelling and any soreness often go away without treatment. However, swollen lymph glands can also be caused by a number of diseases. Your health care provider may do various tests to help determine the cause. If the cause of your swollen lymph glands cannot be found, it is important to monitor your condition to make sure the swelling goes away. Follow these instructions at home: Watch your condition for any changes. The following actions may help to lessen any discomfort you are feeling: ?? Get plenty of rest. ?? Take medicines only as directed by your health care provider. Your health care provider may recommend [id number] medicines for pain. ?? Apply moist heat compresses to the site of swollen lymph nodes as directed by your health care provider. This can help reduce any pain. ?? Check your lymph nodes daily for any changes. ?? Keep all follow-up visits as directed by your health care provider. This is important. Contact a health care provider if: ?? Your lymph nodes are still swollen after 2 weeks. ?? Your swelling increases or spreads to other areas. ?? Your lymph nodes are hard, seem fixed to the skin, or are growing rapidly. ?? Your skin over the lymph nodes is red and inflamed. ?? You have a fever. ?? You have chills. ?? You have fatigue. ?? You develop a sore throat. ?? You have abdominal pain. ?? You have weight loss. ?? You have night sweats. Get help right away if: ?? You notice fluid leaking from the area of the enlarged lymph node. ?? You have severe pain in any area of your body. ?? You have chest pain. ?? You have shortness of breath. This information is not intended to replace advice given to you by your health care provider. Make sure you discuss any questions you have with your health care provider. Document Released: 05/25/2009 Document Revised: 01/21/2017 Document Reviewed: 03/21/2015 [employer] Interactive Patient Education ?? 2018 [employer]. documented in this encounter Progress Notes * Valentin Alvares APRN - 06/02/2018 1:15 PM EDT Subjective Ginny Tripp is a 23 y.o. female. Sinus Problem This is a new problem. The current episode started in the past 7 days. The problem has been gradually worsening since onset. There has been no fever. She is experiencing no pain. Associated symptoms include congestion, coughing (mild), a hoarse voice, a sore throat (severe) and swollen glands (severe). Pertinent negatives include no chills, ear pain, headaches, neck pain, shortness of breath, sinus pressure or sneezing. Treatments tried: allergy medication. The treatment provided mild relief. The following portions of the patient's history were reviewed and updated as appropriate: allergies, current medications, past medical history, past social history, past surgical history and problem list. Review of Systems Constitutional: Negative for appetite change, chills and fever. HENT: Positive for congestion, hoarse voice, postnasal drip, rhinorrhea and sore throat (severe). Negative for ear pain, sinus pressure, sneezing and trouble swallowing. Eyes: Negative. Respiratory: Positive for cough (mild). Negative for chest tightness, shortness of breath and wheezing. Cardiovascular: Negative. Gastrointestinal: Negative for diarrhea, nausea and vomiting. Musculoskeletal: Negative for arthralgias, myalgias and neck pain. Skin: Negative. Neurological: Negative. Negative for headaches. Hematological: Positive for adenopathy (severe right side of neck). BP 110/68 Pulse 74 Temp 98 ??F (36.7 ??C) (Temporal Artery ) Resp 14 Ht 167.6 cm (66 ) Wt56.9 kg (125 lb 6.4 oz) LMP 05/03/2018 SpO2 98% BMI 20.24 kg/m?? Objective Physical Exam Constitutional: She is oriented to person, place, and time. Vital signs are normal. She appears well-developed and well-nourished. No distress. HENT: Head: Normocephalic. Right Ear: External ear and ear canal normal. No drainage, swelling or tenderness. Tympanic membrane is bulging. Tympanic membrane is not erythematous. Left Ear: External ear and ear canal normal. No drainage, swelling or tenderness. Tympanic membraneis bulging. Tympanic membrane is not erythematous. Nose: Mucosal edema and rhinorrhea present. Right sinus exhibits no maxillary sinus tenderness and no frontal sinus tenderness. Left sinus exhibits no maxillary sinus tenderness and no frontal sinus tenderness. Mouth/Throat: Uvula is midline and mucous membranes are normal. Posterior oropharyngeal erythema present. Tonsils are 0 on the right. Tonsils are 0 on the left. No tonsillar exudate. Neck: Normal range of motion. Neck supple. Cardiovascular: Normal rate, regular rhythm, S1 normal, S2 normal and normal heart sounds. Pulmonary/Chest: Effort normal and breath sounds normal. No respiratory distress. She has no wheezes. She has no rhonchi. She has no rales. Abdominal: Soft. Bowel sounds are normal. She exhibits no distension. There is no tenderness. Thereis no rebound and no guarding. Lymphadenopathy: Head (right side): Tonsillar (severe) adenopathy present. Head (left side): Tonsillar (mild) adenopathy present. She has cervical adenopathy. Right cervical: Superficial cervical (severe right) adenopathy present. Left cervical: Superficial cervical (mild) adenopathy present. Neurological: She is alert and oriented to person, place, and time. Skin: Skin is warm and dry. No rash noted. She is not diaphoretic. Psychiatric: She has a normal mood and affect. Her speech is normal and behavior is normal. Thoughtcontent normal. Vitals reviewed. Results for orders placed or performed in visit on 06/02/18 POC Rapid Strep A Result Value Ref Range Rapid Strep A Screen Negative Negative, VALID, INVALID, Not Performed Internal Control Passed Passed Lot Number [id number] Expiration Date ,019 Assessment/Plan Ginny was seen today for sinus problem and sore throat. Diagnoses and all orders for this visit: Lymphadenitis - amoxicillin-clavulanate (AUGMENTIN) 875-125 MG per tablet; Take 1 tablet by mouth 2 (Two) Times aDay. Sinus congestion - pseudoephedrine (SUDAFED) 120 MG 12 hr tablet; Take 1 tablet by mouth Every 12 (Twelve) Hours for10 days. Sore throat - POC Rapid Strep A - PredniSONE (DELTASONE) 10 MG (21) tablet pack; Take by mouth Daily for 6 days. Use as directed onpackage documented in this encounter Plan of Treatment Not on file documented as of this encounter Procedures Procedure Name Priority Date/Time Associated Diagnosis Comments POCT RAPID STREP A Routine 06/02/2018 1: 13 PM EDT Sore throat documented in this encounter Results * POC Rapid Strep A (06/02/2018 1:13 PM EDT) Rapid Strep A Screen Negative Negative, VALID, INVALID, Not Performed [facility] Internal Control Passed Passed [facility] Lot Number [id number] [facility] Expiration Date 312,019 [facility] Swab 06/02/2018 1:13 PM EDT Valentin Moser APRN POINT OF CARE TEST ORDERABL ES Final Result [facility]
[address] [place] [address], documented in this encounter Visit Diagnoses Diagnosis Lymphadenitis- Primary Lymphadenitis, unspecified, except mesenteric Sinus congestion Other diseases of nasal cavity and sinuses Sore throat Acute pharyngitis documented in this encounter Care Teams Signal Supervisor Relationship Specialty Start Date End Date Sinan Borges MD [address] [place] [address] [place] [address] PCP - General 12/20/15 documented as of this encounter
--- OUTSIDE RECORDS SUMMARY | 2024-08-05 23:39 | XMS_ITS | Encounter Summary ---
Author Organization Healthcare Address [address] [place] [address] Care Team Providers Care Junior Media Buyer Name Role Phone Sinan Borges MD Primary Care Provider [phone] Reason for Referral * Consultation (Routine) - Authorized Specialty Diagnoses / Procedures Referred By Kash diaz Referred To Contact Hepatology Diagnoses Hepatic fibrosis, stage 3 Lilliam Nicholas APRN, DNP [address] [place] [address] Phone: tel: fax: Referral ID Status Reason Start Date Expiration Date Visits Requested Visits Authorized [id number] Authorized Specialty Services Required 04/30/2023 10/29/2024 1 1 Scheduling Instructions F3 advanced fibrosis Reason for Visit * Reason Comments HCV Encounter Details Date Type Department Care Team (Late st Contact Info) Description 04/30/2023 1:00 PM EDT Office Visit [facility] [address] [place] [address] Lilliam Nicholas APRN, DNP [address] [place] [address] Hepatitis C virus infection without hepatic coma, unspecified chronicity (Primary Dx); Liver disease, unspecified; Hepatic fibrosis, stage 3; Exposure to hepatitis B; History of illicit drug use; Healthcare maintenance; Obesity (BMI 35.0-39.9 without comorbidity) Social History Tobacco Use Types Packs/Day Years Used Date Smoking Tobacco: Every Day Cigarettes Smokeless Tobacco: Never Tobacco Cessation:Ready to Q uit: Not Asked; Counseling Given: Not Answered Alcohol Use Standard Drinks/Week Comments Not Currently [...] Sign Reading Time Taken Comments Blood Pressure 124/75 04/30/2023 12:19 PM EDT Pulse 91 04/30/2023 12:19 PM EDT Temperature 36.4 ??C (97.6 ??F) 04/30/2023 12:19 PM E DT Respiratory Rate - - Oxygen Saturation 98% 04/30/2023 12:19 PM EDT Inhaled Oxygen Concentration - - Weight 101 kg (222 lb 14.2 oz) 04/30/2023 12:19 PM EDT Height 167.6 cm (5' 6 ) 04/30/2023 12:19 PM EDT Body Mass Index 35.97 04/30/2023 12:19 PM EDT documented in this encounter Miscellaneous Notes * Addendum Note - Lilliam Nicholas, JEWELRY STORE MANAGER, DNP - 04/30/2023 1:00 PM EDTAddended by: LILLIAM NICHOLAS on: 03/22/2024 01:11 PM Modules accepted: Orders * Progress Notes - Lilliam Nicholas APRN, DNP - 04/30/2023 1:[address] [facility] HCV CLINIC OUTPATIENT CONSULT Referred from other (self-referral, ED pt's s/o) for a previous HCV diagnosis. Visit is occurring in-person. HPI: Ginny Tripp is a 28 y.o. white female with past medical history significant for obesity (BMI 36) and previous illicit drug use who presents to the hepatitis C clinic for initial consultation. Reports being diagnosed with HCV in 2021, with no previous DAA prescription. Labs reviewed (-04/2023) HCV RNA (+), HBsAg (-), HBcAb total (+), HBsAb (+). Serum LFTs with mildly elevated tbili (1.2), otherwise unremarkable with FIB-4 0.39 (see closing labs). Fibroscan today (04/2023) c/w F3/advanced fibrosis and S2/moderate steatosis (10.1 kPa, 250 dB/m, iQr 14%). Today, she denies any liver related complaints, including no unexplained weight gain, confusion, hematemesis, melena, or hematochezia. Endorses intentional weight loss by eating less. Social: - Previous: Tobacco: 2 ppd / ETOH: 1 drink per month / illegal drugs: IVDU 'everything' (2012) - Current: Tobacco: 0.5 ppd / ETOH: Denies / illegal drugs: Denies - Other HCV risk factors: Infected sexual partner, non-professional tattoo, incarceration - Sexual contacts: S/o on HCV treatment - Occupation: Full-time - Food insecurity: Denies - Transportation insecurity: Denies Surgical: Past Surgical History: Procedure Laterality Date ARM SURGERY SECTION, CLASSIC Family: - Father with ETOH cirrhosis. No family history of autoimmune hepatitis, hepatobiliary disease, alpha-1 AT deficiency, iron overload, or Marquis's disease. Family History Problem Relation Name Age of Onset Heart disease Maternal Grandmother Diabetes Paternal Grandmother Hypertension Paternal Grandmother Cancer Paternal Grandfather Medications and allergies: - List verified. No current outpatient medications on file. No current facility-administered medications for this visit. No Known Allergies ROS: 14 point ROS reviewed and negative except for those mentioned in HPI Vitals: Today: Visit Vitals BP 124/75 Pulse 91 Temp 36.4 ??C (97.6 ??F) Ht 1.676 m (5' 6 ) Wt 101 kg (222 lb 14.2 oz) SpO2 98% BMI 35.97 kg/m?? Trend: Vitals 08/14/2022 08/19/2022 04/30/2023 Systolic 119 129 124 Diastolic 74 78 75 Pulse 78 93 91 Temp - - 36.4 C Height (cm) 167.6 cm 167.6 cm 167.6 cm Weight (kg) 97.9 kg 101.969 kg 101.1 kg BMI (kg/m2) 34.84 kg/m2 36.28 kg/m2 35.97 kg/m2 BSA (m2) 2.14 m2 2.18 m2 2.17 m2 VISIT REPORT - - - Physical Exam: Constitutional: No acute distress. Normal appearance. HEENT: Head normocephalic and atraumatic. Normal external inspection of ears and nose. Eyes: No scleral icterus. Pulmonary: No increased work of breathing or signs of respiratory distress. Cardiovascular: No pedal edema. Abdominal: Abdomen is rounded, +central obesity. Musculoskeletal: Normal gait and station. Skin: [place], no jaundice. Neurological: Oriented to person, place, and time. Asterixis absent. Psychiatric: Normal mood and affect. Assessment & Plan: # Hepatitis C: - Reported diagnosis: 2021. Lab chronicity: 03/2023 - GT (?), DAA treatment naive - HIV (-), HBsAg (-), HBcAb total (+), HBsAb (+), HBV DNA (?) PLAN: - Discussed HCV transmission, treatment risks/benefits/potential drug interactions, and clinic protocol - Do not share hygiene products, cover wounds w/bandage, clean spilled blood w/bleach, use protection during sex - Counseled on the importance of harm reduction, treatment adherence, and risk for HCV reinfection - Discussed exposure to HBV, will check HBV DNA at [facility] # Hepatic fibrosis: - Central adiposity on exam - Labs: Hyperbilirubinemia (1.2). No thrombocytopenia, elevated INR, or hypoalbuminemia. FIB-4 (04/2023) 0.39 (see closing labs) - Fibroscan today (04/2023) c/w F3/advanced fibrosis and S2/moderate steatosis (10.1 kPa, 250 dB/m, iQr 14%). Note: FibroScan shut down before report uploaded to media PLAN: - Refer to [facility] for ongoing fibrosis and/or HCC surveillance # History of illicit drug use: - Last IVDU in 2020, living with mom/sober living PLAN: - Counseled on the importance of harm reduction, treatment adherence, and risk for HCV reinfection - Referral to community integration specialist offered, pt declines at this time # Obesity: - BMI 36, central adiposity PLAN: - Educated on how excess fat around waistline contributes to liver scarring # Health maintenance: - Hep A: Not immune.. - Hep B: Immunity confirmed Plan summary: Contraception plan, HCV tx PA, HBV DNA with [facility] labs, encouraged continued sobriety/harm reduction, continue weight loss, rec Hep A vaccine, refer to Hepatology for ongoing fibrosis and/or HCC surveillance RTC at [facility] 14 Total time: > 60 minutes Counseling: The patient was counseled regarding instructions for management, risk factor reductions, prognosis, patient and family education, impressions, importance of compliance with treatment and risks and benefits of treatment options. Education Provided: Verbal Counseling Additional time was spent in care coordination including medical record review. Lab Results Component Value Date HEPATITIS A ANTIBODY IGG Negative 04/30/2023 HEP B S AG Negative 04/30/2023 HEP B S AB Positive (A) 04/30/2023 HEP B C TOTAL AB Positive (A) 04/30/2023 HEPATITIS C AB INT Positive (A) 04/30/2023 RAPID HIV 1X2 Non Reactive 04/30/2023 Lab Results Component Value Date INR 0.9 04/30/2023 ALBUMIN 4.7 04/30/2023 BILITOT 1.2 (H) 04/30/2023 ALKPHOS 73 04/30/2023 GLUCOSE 86 04/30/2023 NA 141 04/30/2023 AST 35 04/30/2023 ALT 42 (H) 04/30/2023 PLT 405 (H) 04/30/2023 FIB-4 Calculation: 0.39 at 04/30/2023 1:36 PM Calculated from: SGOT/AST: 35 U/L at 04/30/2023 1:36 PM SGPT/ALT: 42 U/L at 04/30/2023 1:36 PM Platelets: 405 10*3/uL at 04/30/2023 1:36 PM Age: 28 years documented in this encounter Plan of Treatment Scheduled Referrals Name Type Priority Associated Diagnoses Order Schedule Ambulatory referral to Hepatology Outpatient Referral Routine Hepatic fibrosis, stage 3 1 Occurrences starting 03/22/2024 until 10/28/2024 documented as of this encounter Results * Test Qualitative Plasma (04/30/2023 1:36 PM EDT) Test Negative Negative 04/30/2023 3:36 PM EDT [facility] Blood Venous blood specimen / Unknown Venipuncture / Unknown 04/30/2023 1:36 PM EDT 04/30/2023 1:36 PM EDT Narrative [facility] - 04/30/2023 3:36 PM EDT Reference Range: Males and non- females: Negative. us Lilliam Nicholas APRN, DNP LAB BLOOD ORDERABLES F inal Result [facility] [address] [place] [address] * Prothrombin Time/INR (04/30/2023 1:36 PM EDT) Prothrombin Time 12.5 12.0 - 14.3 sec LAB COAGULATION METHOD 04/30/2023 3:36 PM EDT [facility] INR 0.9 0.9 - 1.1 LAB COAGULATION METHOD 04/30/2023 3:36 PM EDT [facility] Blood Venous blood specimen / Unknown Venipuncture / Unknown 04/30/2023 1:36 PM EDT 04/30/2023 1:36 PM EDT Narrative [facility] - 04/30/2023 3:36 PM EDT OPTIMAL INR RANGES FOR PATIENT ON ORAL ANTICOAGULANT THERAPY Prevention of venous thromboembolism ?INR 2.0 to 3.0 In patients with heart disease: Atrial fibrillation ?INR 2.0 to 3.0 Valvular heart disease ? INR 2.0 to 3.0 Tissue heart valves ?INR 2.0 to 3.0 Mechanical prosthetic valves ? INR 2.5 to 3.5 Prevention of recurrent OK ? INR 2.5 to 3.5 Lilliam Nicholas JEWELRY STORE MANAGER, DNP LAB BLOOD ORDERABLES F inal Result [facility] [address] [place] [address] * (ABNORMAL) Comprehensive Metabolic Panel, Plasma (04/30/2023 1:36 PM EDT) Glucose, Plasma 86 74 - 99 mg/dL 04/30/2023 3:36 PM EDT [facility] BUN, Plasma 12 7 - 21 mg/dL 04/30/2023 3:36 PM EDT [facility] Creatinine, Plasma 0.80 0.60 - 1.10 mg/dL 04/30/2023 3:36 PM EDT [facility] BUN/Creatinine Ratio 15 04/30/2023 3:36 PM EDT [facility] Sodium, Plasma 141 136 - 145 mmol/L 04/30/2023 3:36 PM EDT [facility] Potassium, Plasma 4.0 3.7 - 4.8 mmol/L 04/30/2023 3:36 PM EDT [facility] Chloride, Plasma 104 97 - 107 mmol/L 04/30/2023 3:36 PM EDT [facility] CO2, Plasma 24 22 - 29 mmol/L 04/30/2023 3:36 PM EDT [facility] Anion Gap 13 6 - 16 mmol/L 04/30/2023 3:36 PM EDT [facility] Total Calcium, Plasma 9.2 8.9 - 10.2 mg/dL 04/30/2023 3:36 PM EDT [facility] Total Protein 7.6 6.3 - 7.9 g/dL 04/30/2023 3:36 PM EDT [facility] Albumin, Plasma 4.7 3.5 - 5.2 g/dL 04/30/2023 3:36 PM EDT [facility] AST, Plasma 35 10 - 35 U/L 04/30/2023 3:36 PM EDT [facility] Comment:Hemolyzed, result ma y be falsely increased. ALT, Plasma 42(H) 10 - 35 U/L 04/30/2023 3:36 PM EDT [facility] Alkaline Phosphatase, Plasma 73 35 - 104 U/L 04/30/2023 3:36 PM EDT [facility] Total Bilirubin, Plasma 1.2(H) 0.2 - 1.1 mg/dL 04/30/2023 3:36 PM EDT [facility] eGFRcr 102.4 mL/min/1.7 3m*2 04/30/2023 3:36 PM EDT [facility] Comment:Reported eGFRcr in m L/min/1.73m2 is based the CKD-EPI 2020 equation that does not use a race coefficient. Blood Venous blood specimen / Unknown Venipuncture / Unknown 04/30/2023 1:36 PM EDT 04/30/2023 1:36 PM EDT us Lilliam Nicholas JEWELRY STORE MANAGER, DNP LAB BLOOD ORDERABLES F inal Result [facility] [address] [place] [id number] * (ABNORMAL) CBC W/O Differential (04/30/2023 1:36 PM EDT) WBC Count 6.20 3.70 - 10.30 10*3/uL LAB HEMATOLOGY METHOD 04/30/2023 3:08 PM EDT [facility] RBC Count 4.40 3.90 - 5.20 10*6/uL LAB HEMATOLOGY METHOD 04/30/2023 3:08 PM EDT [facility] HGB 13.6 11.2 - 15.7 g/dL LAB HEMATOLOGY METHOD 04/30/2023 3:08 PM EDT [facility] HCT 41.6 34.0 - 45.0 % LAB HEMATOLOGY METHOD 04/30/2023 3:08 PM EDT [facility] Platelet Count 405(H) 155 - 369 10*3/uL LAB HEMATOLOGY METHOD 04/30/2023 3:08 PM EDT [facility] MCV 95 79 - 98 fL LAB HEMATOLOGY METHOD 04/30/2023 3:08 PM EDT [facility] MCH 30.9 26.0 - 32.0 pg LAB HEMATOLOGY METHOD 04/30/2023 3:08 PM EDT [facility] MCHC 32.7 30.7 - 35.5 g/dL LAB HEMATOLOGY METHOD 04/30/2023 3:08 PM EDT [facility] RDW 12.5 11.5 - 14.5 % LAB HEMATOLOGY METHOD 04/30/2023 3:08 PM EDT [facility] MPV 12.3 8.8 - 12.5 fL LAB HEMATOLOGY METHOD 04/30/2023 3:08 PM EDT [facility] nRBC 0.0 <=0.0 per 100 WBCs LAB HEMATOLOGY METHOD 04/30/2023 3:08 PM EDT [facility] Blood Venous blood specimen / Unknown Venipuncture / Unknown 04/30/2023 1:36 PM EDT 04/30/2023 1:36 PM EDT Lilliam Nicholas JEWELRY STORE MANAGER, DNP LAB BLOOD ORDERABLES F inal Result [facility] [address] [place] [address] * (ABNORMAL) Hepatitis C Virus (HCV) Genotype (04/30/2023 1:36 PM EDT) Hepatitis C Virus (HCV) Genotype Result Hepatitis C Virus Genotype: 3(A) Not Detected 05/05/2023 4:34 PM EDT [facility] Blood Venous blood specimen / Unknown Venipuncture / Unknown 04/30/2023 1:36 PM EDT 04/30/2023 1:36 PM EDT Narrative [facility] - 05/05/2023 4:34 PM EDT This test is performed by the [employer] instrument for Real Time PCR HCV Genotype II. This test is FDA approved for use with serum specimens. This test is used for clinical purposes. It should not be regarded as investigational or for research. Reference interval includes HCV Genotypes: 1, 1A, 1B, 2, 3, 4, and 5. [facility] Clinical Microbiology Laboratory is certified under the Clinical Laboratory Improvement Amendments of 1988 (CLIA-88) as qualified to perform high complexity clinical laboratory testing. us Lilliam Nicholas APRN, COLLEEN LAB BLOOD ORDERABLES F inal Result Performing Organization Address [facility] Co de Phone Number [facility] [address] [place] [address] * (ABNORMAL) Hepatitis B Surface Antibody (04/30/2023 1:36 PM EDT) Pathologist [facility] Hepatitis B Surface Antibody Positive( A) Negative mIU/mL 04/30/2023 4:18 PM EDT [facility] Comment:Antibodies to HBsAg are present at a level greater than or equal to 12 International Units/L. This usually indicates protection against infection. Blood Venous blood specimen / Unknown Venipuncture / Unknown 04/30/2023 1:36 PM EDT 04/30/2023 1:36 PM EDT Lilliam Nicholas APRN, DNP LAB BLOOD ORDERABLES F inal Result Performing Organization Address [facility] de Phone Number [facility] [address] [place] [address] * Hepatitis B Surface Antigen (04/30/2023 1:36 PM EDT) Pathologist [facility] Hepatitis B Surf Antigen Negative Negative 04/30/2023 4:18 PM EDT [facility] Blood Venous blood specimen / Unknown Venipuncture / Unknown 04/30/2023 1:36 PM EDT 04/30/2023 1:36 PM EDT Lilliam Nicholas APRN, DNP LAB BLOOD ORDERABLES F inal Result Performing Organization Address City/[facility] Co de Phone Number [facility] [address] [place] [address] * (ABNORMAL) Hepatitis B Core Total Antibody IgG,IgM (04/30/2023 1:36 PM EDT) Pathologist [facility] Hepatitis B Core Total Antibody IgG,IgM Positive(A ) Negative 04/30/2023 9:13 PM EDT [facility] Blood Venous blood specimen / Unknown Venipuncture / Unknown 04/30/2023 1:36 PM EDT 04/30/2023 1:36 PM EDT us Lilliam Nicholas APRN, DNP LAB BLOOD ORDERABLES F inal Result Performing Organization Address [facility] de Phone Number [facility] [address] [place] [address] * Hepatitis A Antibody IgG (04/30/2023 1:36 PM EDT) Hepatitis A Antibody IgG Negative Negative 04/30/2023 4:18 PM EDT [facility] Blood Venous blood specimen / Unknown Venipuncture / Unknown 04/30/2023 1:36 PM EDT 04/30/2023 1:36 PM EDT us Lilliam Nicholas APRN, DNP LAB BLOOD ORDERABLES F inal Result Performing Organization Address [facility] Phone Number [facility] [address] [place] [address] * GI FIBROSCAN (04/30/2023 1:00 PM EDT) Narrative [facility] - 04/30/2023 1:00 PM EDT Lilliam Nicholas APRN, DNP ? 05/02/2023 11:25 AM GI Fibroscan Performed by: Trini Hall, PharmD Authorized by: Lilliam Nicholas APRN, DNP ?? us Lilliam Nicholas APRN, DNP IN [facility] DIAGNOSTIC O RDERS Final Result Performing Organization Address [facility] Phone Number [facility] documented in this encounter Visit Diagnoses Diagnosis Hepatitis C virus infection without hepatic coma, unspecified chronicity- Primary Liver disease, unspecified Hepatic fibrosis, stage 3 Exposure to hepatitis B Contact with or exposure to other viral diseases History of illicit drug use Healthcare maintenance Obesity (BMI 35.0-39.9 without comorbidity) documented in this encounter Additional Health Concerns Assessment Noted Time A fall risk assessment has been complete d for the patient 04/30/2023 12:20 PM EDT A Body Mass Index follow-up plan has been documented for the patient 05/02/2023 11:25 AM EDT documented as of this encounter Care Teams Junior Media Buyer Relationship Specialty Start Date End Date Sinan Borges MD [address] [place] [address] PCP - General 01/10/21 documented as of this encounter
--- OUTSIDE RECORDS SUMMARY | 2024-08-05 23:39 | XMS_ITS | Encounter Summary ---
Author Organization Healthcare Address [address] [place] [address] Care Team Providers Care Magazine Editor Name Role Phone Sinan Borges MD Primary Care Provider [phone] Reason for Visit * Reason Onset Date Comments HCV Ab Testing/Results Call 03/29/2023 Encounter Details Date Type Department Care Team (Late st Contact Info) Description 03/29/[address] [facility] Medicine Specialties [address], [address] [place] [id number] Dean Wilcox, PharmD Specialty Pharmacy [address] [place] [phone] HCV Ab Testing/Results Call Social History Tobacco Use Types Packs/Day Years [...] encounter Miscellaneous Notes * Telephone Encounter - Veronica Denney, PharmD - 05/05/2023 11:53 AM EDT NST completed, see new encounter. * Progress Notes - Tamie Phoenix PharmD - 05/04/2023 9:56 AM EDT Rx for Sof/José x 12 weeks sent to [facility] for processing. $0 copay No DDIs * Progress Notes - Quin Pepper CPhT - 05/04/2023 9:34 AM EDT Attached media from the original note were not included. PA request has been approved and pharmacy notified (Filling pharmacy will be notified by phone, fax, or submitted prescription) Authorized Medication: Sof/José Name of Insurance Approving PA: [facility] PA Number: [id number] PA Effective Dates: 05/04/23 to 07/27/23 Additional Info: [facility] 05/04/23 * Telephone Encounter - Quin Pepper CPhT - 05/04/2023 9:32 AM EDT Prior authorization initiated by [facility] PA Services. Update will be provided when a determination has been received. Medication: Sof/José PA Submission Method: CMM Case Number/CMM Estrella: [id number] * Telephone Encounter - Jayleen Kaur PharmD - 05/04/2023 8:40 AM EDT Hepatitis C Treatment Order HCV Order Clinic: ED PATIENT INFORMATION PRESCRIBER INFORMATION Patient Name: Ginny Tripp : 1995 Prescriber Name: Iam Mayen Address: [address] [facility] , [address] [place] [address] Zip Code: [facility] [place] Verbal obtained? Yes, via C.C.'d chart (as below) Verbal Date: 05/02/23 Race: White Allergies: Patient has no known allergies. DRUG AND PRESCRIPTION ORDERS (28 DAY SUPPLY) LENGTH OF THERAPY Therapy: Epclusa (Sofosbuvir/Velpatasvir) 400/100mg 1 tab PO every day with or without food. Treatment Length: 12 weeks CLINICAL INFORMATION Diagnoses: [x] B18.2 chronic HCV [] HIV [] HBV Factors: (-) Plasma Test 04/30/23 DX date: 2021 Resistance Test forGT3 Cirrhosis: N/A Chronicity: No HCV RNA: 34,400 Hgb: 13.6 Plt: 405 GFR: 102.4 ALT: 42 AST: 35 Labs Date: HCV RNA - 04/05/23; All others 04/30/23 Previously Treated? No Previous Tx utilized: None Response: N/A Considered: Treatment Naive Fibrosis Test #1: FIB-4 T1 Date: 04/30/23 Fibrosis Score: 0.39 Cirrhosis? No Decompensated? No CTP Score: A Fibrosis Test #2: Fibroscan T2 Date: 04/30/23 Fibrosis Score: 10.1 kPa (F3 Fibrosis) Genotype: HCV Genotype: Unknown HAV Ab+? No HIV Ab+? No Height: Ht Readings from Last 1 Encounters: 04/30/23 1.676 m (5' 6 ) Weight: Wt Readings from Last 1 Encounters: 04/30/23 101 kg (222 lb 14.2 oz) HBV sAg+? No HBV sAb+? Yes HBV cAb+? Yes HBV DNA: To be collected at SVR12 labs per provider Immunizations Administered: []HAV []HBV []Other: Pt eligible for HAV vaccine and will be offered ather SVR14 appt. Additional Pertinent Information: Please add patient to [facility]. Order sent to [facility] for generic SOF/JOSÉ x 12 weeks for PA processing. Pt may do brand Epclusa, if preferred by INS. Chronicity: None. Benefits Investigation Insurance: [employer] [place] Pharmacy Help Desk: [phone] BIN: [id number] PCN: [id number] [id number] ID: [id number] * Telephone Encounter - Jayleen Kaur PharmD - 05/04/2023 8:39 AM EDT Images from the original note were not included. Iam Mayen, [employer], DNP [facility] 2 days ago I have reviewed patient's chart. I approve of Sof/José x 12 weeks. I have ordered SVR 12 labs. Plan for HBV DNA lab to be done with SVR 12 labs. Thank you! * Telephone Encounter - Trini Hall PharmD - 04/30/2023 1:32 PM EDT Waiting for all additional labs to result prior to requesting verbal from provider * Progress Notes - Trini Hall PharmD - 04/30/2023 1:13 PM EDT Attached media from the original note were not included. Specialty Pharmacy ED HCV Meet & Marielle Spoke with patient in clinic . Patient verbalized understanding and consented to proceed with workup of potential HCV infection, and subsequent treatment if indicated, via Collaborative Care Agreement. All laboratory testing and fibrosis assessment results related to hepatitis C diagnosis and treatment ordered by the [facility] ED HCV team will be the responsibility of the [facility] ED HCV providers as an extension of the workup initiated in the ED. Lito & Marielle Address: [facility] [address], [address] [place] [address] Zip Code: [address] Primary Alternative (Therese mom, PTC) PTC: Therese Tripp (mother) [phone] Tx History and Medication Reconciliation Previous HCVAb+? No Previous HCVAb+ Date: None in epic or media Previous HCVRNA+? No Previous HCVRNA+ Date: None in epic or media Current HCVAb+? Yes Current HCVAb+ Date: 04/09/23 Diagnosis Date: 2021 Previously Treated? No Previous Treatment Utilized: None Drug Allergies: Patient has no known allergies. Heartburn/Acid Reflux: No Heartburn/Acid Reflux Notes: N/a Other Drug Interactions: No Other DDI Info: none Immunizations Needed: Unknown- labs being drawn today Immunizations Ordered: []HAV []HBV Planned treatment: sofosbuvir/velpatasvir If planned treatment is Mavyret, what indication: []High dose PPI []< 12 Week Treatment Window [] Other Med List: No outpatient meds per patient Drug Interactions- LexiComp: none Drug Interactions- iHep: none Fibrosis Assessments and Labs Fibroscan in this encounter: Yes Fibroscan Exclusions: [] Fibroscan in Past Year [] Pacemaker [] Patient Declined [] Perform in Clinic [] Physical Barrier Computed FIB-4 Calculation unavailable. Necessary lab results were not found in the last year. No results found for: FIBROSURE , EXTFIBROSURE , LIMITATIONS No results found for: HCVIUML , HCVRNA No results found for: HEPATITIS A ANTIBODY IGG , HEP B S AG , HEP B S AB , HEP B C TOTAL AB , HEPATITIS C AB INT , RAPID HIV 1X2 Benefits Investigation Insurance: [employer] [place] Pharmacy Help Desk: [phone] BIN: [id number] PCN: [id number] [id number] ID: [id number] LAURA: N/A- patient has Medicaid Do you have Patient Feedt and know how to access your account? Yes Because the public health emergency is over, your insurance requires that patients sign for their prescriptions when delivered. [facility] is going to capture these signatures electronically through [employer]. You will receive a notification from [employer] asking you verify and sign that your package has been delivered. Extra info: Patient having additional labs drawn for w/u Trini Hall PharmD [facility] ED HCV Team Contact [facility] ED [facility] via secure chat with questions * Telephone Encounter - Trini Hall PharmD - 04/30/2023 12:58 PM EDT MG and FS completed during Gauge Checker visit * Telephone Encounter - Kaleb Granados PharmD - 04/12/2023 12:59 PM EDT Patient returned call and is now scheduled on 04/30/23 at 1:00 pm for OV/FS/Labs. * Telephone Encounter - Kaleb Granados PharmD - 04/12/2023 10:14 AM EDT Call attempt 1 to schedule FS/OV/labs: [phone] no answer, no VM option. * Telephone Encounter - Jayleen Kaur PharmD - 04/12/2023 8:51 AM EDT Received RNA result from [facility] and pt had RNA+ (34,400) result. Call pt to inform her of result and schedule OV/FS/Labs. * Telephone Encounter - Nasra Murphy - 04/09/2023 9:44 AM EDT Spoke with Marilia at [facility] lab ). HCV Ab still hasn't resulted. She logged into [facility] account and [facility] shows Ab+, reflexed to RNA and that's why it's still pending. Marilia faxed over Ab result which has been uploaded to MM. Called pt at [phone] to let her know result, and said we will call her back once the RNA results. Told her I'm not sure how long their lab takes but to expect a call ~middle of next week. She said if she needs appt, she would prefer for Iam. Informed that we'll likely need her to come on site for FS and pt voiced understanding. * Telephone Encounter - Nasra Murphy - 04/08/2023 3:44 PM EDT Patient also called from [phone] to check on result. Informed that we will be calling to request it again tomorrow, and that we will call her back whether they have it or not to give her an update. * Telephone Encounter - Nasra Murphy - 04/08/2023 11:56 AM EDT Spoke with [facility] lab and Ab is still pending. Ensured fax # on file for them was [phone]. They expect it have it back later today or tomorrow (typically 1 day turnaround though hers didn't go out to [facility] until the next day). Will call tomorrow afternoon if no result received. * Telephone Encounter - Nasra Murphy - 04/06/2023 9:22 AM EDT Called [facility] at --> med records and confirmed pt did show yesterday and lab was drawn but still pending. Will check back Th if we haven't received result yet. * Telephone Encounter - Jayleen Kaur, PharmD - 04/05/2023 2:04 PM EDT Spoke with Vani at [facility]. She confirms that they received labfor HCV Ab. Pt states she will go today. Will check back to see if she attended lab. * Telephone Encounter - Jayleen Kaur PharmD - 04/05/2023 1:11 PM EDT Pt stated that she went to hospital last night for lab and they said they didn't receive our fax. Re-sent lab order via fax, confirmed number with registration department. Will call back at 1:45 to check if they got fax. * Progress Notes - Jayleen Kaur PharmD - 03/31/2023 2:40 PM EDT Spoke with pt at [phone]. Stated she was going to try to go to [facility] on Wednesday to be tested. Told her to call them and make sure she would be able to go since it was the weekend. Follow up at beginning of next week to see if she made it and if they have result if not already received. * Telephone Encounter - Dean Wilcox PharmD - 03/29/2023 9:04 AM EDT Called pt @ [phone], no VM available, to let her know HCV Ab order was faxed to [facility] this morning. Need to see when she thinks she'll be able to go get it drawn so we can appropriately f/u on result. * Telephone Encounter - Dean Wilcox PharmD - 03/29/2023 9:03 AM EDT ----- Message from Iam Mayen APRN, DNP sent at 03/26/2023 8:14 PM EDT ----- I ordered hcv screening. Please fax order. Thank you! ----- Message ----- From: Dean Wilcox, PharmD Sent: 03/24/2023 6:38 PM EDT To: Iam Mayen APRN, DNP This is the significant other of ED patient and she thinks she may have HCV. No labs on file, wouldlike to get screened. Would prefer to get screened at [facility] and will come down for appt later if needed. documented in this encounter Plan of Treatment Not on file documented as of this encounter Visit Diagnoses Not on filedocumented in this encounter Additional Health Concerns Assessment Noted Time A fall risk assessment has been complete d for the patient 08/14/2022 8:43 AM EST documented as of this encounter Care Teams Magazine Editor Relationship Specialty Start Date End Date Sinan Borges MD [address] [place] [address] PCP - General 01/10/21 documented as of this encounter
--- OUTSIDE RECORDS SUMMARY | 2024-08-05 23:39 | XMS_ITS | Encounter Summary ---
Author Organization [facility] Address [address] [place] [address] Care Team Providers Care Social Sciences Chair Name Role Phone Sinan Borges MD Primary Care Provider Reason for Visit * Reason Comments Contraception Nexplanon removal Encounter Details Date Type Department Care Team (Late st Contact Info) Description 08/19/2022 1:00 PM EST Office Visit [facility] [address] [facility], [address] [place] [address] Flavia Colon, PHARMACEUTICAL SALES [address] [place] [address] [address] [place] [address] Encounter for Nexplanon removal (Primary Dx); test negative Social History Tobacco Use Types Packs/Day Years [...] PM EST documented as of this encounter Last Filed Vital Signs Vital Sign Reading Time Taken Comments Blood Pressure 129/78 08/19/2022 1:16 PM EST Pulse 93 08/19/2022 1:16 PM EST Temperature - - Respiratory Rate - - Oxygen Saturation - - Inhaled Oxygen Concentration - - Weight 102 kg (224 lb 12.8 oz) 08/19/2022 1:16 P M EST Height 167.6 cm (5' 6 ) 08/19/2022 1:16 PM EST Body Mass Index 36.28 08/19/2022 1:16 PM EST documented in this encounter Miscellaneous Notes * Assessment & Plan Note - Flavia Colon APRN - 08/19/2022 1:18 PM EST Associated Problem(s): Encounter for Nexplanon removal nexplanon removed without complication. Request to be placed on depo. Risks and beneftis discussed. Will get UPT since nexplanon has been in longer than 5 years. Depo ordered. * Addendum Note - Robinson Stark - 08/19/2022 1:00 PM ESTAddended by: ROBINSON STARK on: 08/19/2022 01:45 PM Modules accepted: Orders * Progress Notes - Flavia Colon APRN - 08/19/2022 1:00 PM ESTAssociated Order(s): Insertion of Contraceptive Capsule Post-Procedure Diagnose(s): Encounter for Nexplanon removal Images from the original note were not included. Gynecology Progress Note Subjective Ginny Tripp presents to the office today for Nexplanon removal. Risks, Benefits, and Alternatives were discussed with the patient. We discussed possible complications, including infection, bleeding, and pain. Consent was obtained prior to initiating the procedure. Consent will be scanned into the chart and a copy will be given to the patient. Procedure Details: Nexplanon removal site was prepped in sterile fashion using betadine. 1% lidocaine was injected at the removal site for local anesthesia. Nexplanon was removed from the non-dominate left arm. Patient Status: The patient tolerated the procedure well. There were no complications. The device measured 4 cm in length post removal. Post Procedure Dressing: Stenstrips were applied and patient was advised to leave stenstrips in place for 3 days. and Pressure bandage placed and patient was advised to leave in placed for 24 hours. Return Precautions: Explained and verbal understanding expressed. Patient request to be started on depo today. Risks and benefits discussed with patient. Review of Systems Objective There were no vitals taken for this visit. Physical Exam Constitutional: Appearance: Normal appearance. HENT: Head: Normocephalic. Pulmonary: Effort: Pulmonary effort is normal. Neurological: General: No focal deficit present. Mental Status: She is alert. Skin: Psychiatric: Mood and Affect: Mood normal. Behavior: Behavior normal. Vitals reviewed. Exam conducted with a event executive present. Visit Vitals BP 129/78 Pulse 93 Ht 1.676 m (5' 6 ) Wt 102 kg (224 lb 12.8 oz) BMI 36.28 kg/m?? Smoking Status Every Day BSA 2.18 m?? Current Outpatient Medications on File Prior to Visit Medication Sig Dispense Refill Allergy Relief 180 MG tablet buPROPion XL (Wellbutrin XL) 150 MG 24 hr tablet Deep Sea Nasal [place] 0.65 % nasal spray fluticasone (Flonase) 50 MCG/ACT nasal spray mirtazapine (Remeron) 30 MG tablet prazosin (Minipress) 1 MG capsule ProAir HFA 108 (90 Base) MCG/ACT inhaler Symbicort 80-4.5 MCG/ACT inhaler Vivitrol 380 MG reconstituted suspension injection No current facility-administered medications on file prior to visit. No Known Allergies Insertion of Contraceptive Capsule Performed by: Flavia Colon APRN Authorized by: Flavia Colon APRN Consent: Consent obtained: Written Consent given by: Patient Procedural risks discussed: Bleeding, infection, possible continued pain and repeat procedure Patient questions answered: yes Patient agrees, verbalizes understanding, and wants to proceed: yes Instructions and paperwork completed: yes Indication: Indication: Presence of non-biodegradable drug delivery implant Pre-procedure: Pre-procedure timeout performed: yes Prepped with: alcohol 70% and povidone-iodine Local anesthetic: Lidocaine without epinephrine The site was cleaned and prepped in a sterile fashion: yes Procedure: Procedure: Removal Small stab incision was made in arm: yes Left/right: Left Site was closed with steri-strips and pressure bandage applied: yes Labs: Imaging: Assessment/Plan Assess/Plan SmartLinks: Problem List Items Addressed This Visit Other Encounter for Nexplanon removal - Primary nexplanon removed without complication. Request to be placed on depo. Risks and beneftis discussed. Will get UPT since nexplanon has been in longer than 5 years. Depo ordered. I personally spent a total of 25 minutes on this encounter. This time includes face to face with patient, counseling and discussion and/or coordination of care. Counseling and/or coordinating care dominated (more than 50%) the encounter. documented in this encounter Plan of Treatment Not on file documented as of this encounter Procedures Procedure Name Priority Date/Time Associated Diagnosis Comments POCT , URINE Routine 08/19/2022 1:41 PM EST test negative ND REMOVAL DRUG IMPLANT DEVICE Routine 08/19/2022 1:00 PM EST Encounter for Nexplanon removal documented in this encounter Results * POCT Urine (08/19/2022 1:41 PM EST) Urine - Point of Care Negative - women after 7 weeks gestation and dilute urine (specific gravity <1.010) may have false negative results. Plasma HCG testing is recommended. Test performed at Point of Care. Negative - women after 7 weeks gestation and dilute urine (specific gravity <1.010) may have false negative results. Plasma HCG testing is recommended. Test performed at Point of Care. INTERNAL QC OK, PREG URINE okay KIT LOT NUMBER, PREG URINE [id number] KIT EXPIRATION DATE, PREG URINE 07/29/23 Urine Urine specimen obtained by clean catch procedure / Unknown 08/19/2022 1:41 PM EST us Flavia Colon PHARMACEUTICAL SALES POINT OF CARE TEST ENTER/NIURKA T ORDERABLES Final Result * ND REMOVAL DRUG IMPLANT DEVICE (08/19/2022 1:00 PM EST) Narrative Flavia Colon APRN - 08/19/2022 1:00 PM EST Flavia Colon APRN ? 08/19/2022 ??1:33 PM Insertion of Contraceptive Capsule Performed by: Flavia Colon APRN Authorized by: Flavia Colon APRN Consent: ??Consent obtained: ??Written ??Consent given by: ??Patient ??Procedural risks discussed: ??Bleeding, infection, possible continued pain and repeat procedure ??Patient questions answered: yes ?Patient agrees, verbalizes understanding, and wants to proceed: yes ?Instructions and paperwork completed: yes ?? Indication: ??Indication: Presence of non-biodegradable drug delivery implant ?? Pre-procedure: ??Pre-procedure timeout performed: yes ?Prepped with: alcohol 70% and povidone-iodine ?Local anesthetic: ??Lidocaine without epinephrine ??The site was cleaned and prepped in a sterile fashion: yes ?? Procedure: ??Procedure: ??Removal ??Small stab incision was made in arm: yes ?Left/right: ??Left ??Site was closed with steri-strips and pressure bandage applied: yes ?? us Flavia Colon PHARMACEUTICAL SALES IN CLINIC/BEDSIDE ORDERABLES Final Result documented in this encounter Visit Diagnoses Diagnosis Encounter for Nexplanon removal- Primary test negative documented in this encounter Additional Health Concerns Assessment Noted Time A fall risk assessment has been complete d for the patient 08/14/2022 8:43 AM EST documented as of this encounter Care Teams Social Sciences Chair Relationship Specialty Start Date End Date Sinan Borges MD [address] [place] [address] PCP - General 01/10/21 documented as of this encounter
--- OUTSIDE RECORDS SUMMARY | 2024-08-05 23:39 | XMS_ITS | Encounter Summary ---
Author Organization [facility] Address [address] [place] [address] Care Team Providers Care Global Compensation Manager Name Role Phone Sinan Borges MD Primary Care Provider Reason for Visit * Reason Comments Annual Exam Encounter Details Date Type Department Care Team (Late st Contact Info) Description 08/14/2022 8:30 AM EST Office Visit [facility] [address], [address] [place] [address] Flavia Colon, ELECTROCHEMIST [address] [place] [address] Rd [facility] [address] [place] [address] Well woman exam (Primary Dx); Tobacco user; BMI 34.0-34.9,adult Social History Tobacco Use Types Packs/Day Years [...] AM EST documented as of this encounter Last Filed Vital Signs Vital Sign Reading Time Taken Comments Blood Pressure 119/74 08/14/2022 8:35 AM EST Pulse 78 08/14/2022 8:35 AM EST Temperature - - Respiratory Rate - - Oxygen Saturation - - Inhaled Oxygen Concentration - - Weight 97.9 kg (215 lb 13.3 oz) 08/14/2022 8:35 AM EST Height 167.6 cm (5' 6 ) 08/14/2022 8:35 AM EST Body Mass Index 34.84 08/14/2022 8:35 AM EST documented in this encounter Miscellaneous Notes * Assessment & Plan Note - Flavia Colon APRN - 08/14/2022 9:11 AM EST Associated Problem(s): Tobacco user Discussed risk of tobacco smoking and benefits of quitting. Discussed NRT. Discussed vaping is not a good supplement to stop smoking. Discussed risks of smoking. Discussed decreasing smoking by one cigarette per day. I spent five minutes face to face counseling on tobacco use and cessation. * Assessment & Plan Note - Flavia Colon APRN - 08/14/2022 9:10 AM EST Associated Problem(s): Well woman exam Well-woman exam complete. Cervical cancer guidelines screenings reviewed. Pap collected. SBE recommendations reviewed.Breast exam completed. Discussed routine STI testing. Denies need. Will remove nexplanon and start depo next week. Risk and benefits of depo discussed. * Result Encounter Note - Flavia Colon APRN - 08/14/2022 8:30 AM EST Negative cytology * Progress Notes - Flavia Colon APRN - 08/14/2022 8:30 AM EST Images from the original note were not included. Gynecology Progress Note Subjective 27 year old female presents to clinic for well woman exam. She reports that she has not had a pap in many many years. She reports that she does not do breast exams at home. She would like her pap andbreast exam updated. She denies sexual activity and does not want STI testing. She reports that shehas a nexplanon for contraception but it is overdue to come out. She reports she does smoke and she is cutting down.She is down to a half a pack a day. She reports mental health is good. She denies IPV. 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 She reports she is on her menstural cycle today but is only lightly bleeding. Review of Systems Constitutional: Negative. HENT: Negative. Eyes: Negative. Respiratory: Negative. Cardiovascular: Negative. Gastrointestinal: Negative. Endocrine: Negative. Musculoskeletal: Negative. Skin: Negative. Hematological: Negative. Psychiatric/Behavioral: Negative. Objective Visit Vitals BP 119/74 Pulse 78 Physical Exam Constitutional: Appearance: Normal appearance. Genitourinary: Vulva normal. Right Labia: No tenderness or lesions. Left Labia: No tenderness or lesions. Vaginal bleeding present. No vaginal discharge or erythema. No cervical discharge, friability, lesion or polyp. Pelvic exam was performed with patient in the lithotomy position. Breasts: Right: Normal. No mass, nipple discharge, skin change or tenderness. Left: Normal. No mass, nipple discharge, skin change or tenderness. HENT: Head: Normocephalic. Pulmonary: Effort: Pulmonary effort is normal. Lymphadenopathy: Upper Body: Right upper body: No supraclavicular or axillary adenopathy. Left upper body: No supraclavicular or axillary adenopathy. Neurological: General: No focal deficit present. Mental Status: She is alert. Skin: Psychiatric: Mood and Affect: Mood normal. Behavior: Behavior normal. Vitals reviewed. Exam conducted with a food prep worker present. Labs: Imaging: Assessment/Plan Assess/Plan SmartLinks: Problem List Items Addressed This Visit Other Well woman exam - Primary Well-woman exam complete. Cervical cancer guidelines screenings reviewed. Pap collected. SBE recommendations reviewed.Breast exam completed. Discussed routine STI testing. Denies need. Will remove nexplanon and start depo next week. Risk and benefits of depo discussed. Tobacco user Discussed risk of tobacco smoking and benefits of quitting. Discussed NRT. Discussed vaping is not a good supplement to stop smoking. Discussed risks of smoking. Discussed decreasing smoking by one cigarette per day. I spent five minutes face to face counseling on tobacco use and cessation. BMI 34.0-34.9,adult documented in this encounter Plan of Treatment Not on file documented as of this encounter Procedures Procedure Name Priority Date/Time Associated Diagnosis Comments PAP TEST - CYTOLOGY Routine 08/27/2022 documented in this encounter Results * Pap Test (08/27/2022) Swab Vaginal and cervical cytologic material / Unknown us Flavia Colon APRN LAB CYTOLOGY ORDERABLES Candy l Result documented in this encounter Visit Diagnoses Diagnosis Well woman exam- Primary Routine general medical examination at a health care facility Tobacco user Tobacco use disorder BMI 34.0-34.9,adult documented in this encounter Additional Health Concerns Assessment Noted Time A fall risk assessment has been complete d for the patient 08/14/2022 8:43 AM EST documented as of this encounter Care Teams Global Compensation Manager Relationship Specialty Start Date End Date Sinan Borges MD [address] [place] [id number] PCP - General 01/10/21 documented as of this encounter
--- OUTSIDE RECORDS SUMMARY | 2024-08-05 23:39 | XMS_ITS | Clinical Summary ---
Author Organization [facility] Address [address] [place] [address] Care Team Providers Care Mothers Helper Name Role Phone Sinan Borges MD Primary Care Provider [phone] Allergies No known active allergies Medications No known medications Active Problems Problem Noted Date Diagnosed Date Encounter for Nexplanon removal 08/19/2022 Assessment & Plan (08/19/2022 1:19 PM EST): nexplanon removed without complication. Request to be placed on depo. Risks and beneftis discussed. Will get UPT since nexplanon has been in longer than 5 years. Depo ordered. Well woman exam 08/14/2022 Assessment & Plan (08/14/2022 9:11 AM EST): Well-woman exam complete. Cervical cancer guidelines screenings reviewed. Pap collected. SBE recommendations reviewed.Breast exam completed. Discussed routine STI testing. Denies need. Will remove nexplanon and start depo next week. Risk and benefits of depo discussed. Tobacco user 08/14/2022 Assessment & Plan (08/14/2022 9:12 AM EST): Discussed risk of tobacco smoking and benefits of quitting. Discussed NRT. Discussed vaping is not a good supplement to stop smoking. Discussed risks of smoking. Discussed decreasing smoking by one cigarette per day. I spent five minutes face to face counseling on tobacco use and cessation. 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 06/02/2018 04/30/2023 Paresthesia 06/02/2018 04/30/2023 Immunizations Name Administration Dates Next Due DTaP, Unspecified 03/04/1998 Influenza, injectable, quadrivalent, preservativ e free 08/13/2022 MMR 03/04/1998 OPV 03/04/1998 TD (adult), 2 Lf tetanus tox oid, preservative free, adsorbed 03/22/1997 Td (adult), 5 Lf tetanus tox oid, preservative free, adsorbed 01/05/2016 Tdap 12/16/2016,02/25/2006 Family History Medical History Relation Name Comments Heart disease Maternal Grandmother Cancer Paternal Grandfather Diabetes Paternal Grandmother Hypertension Paternal Grandmother Relation Name Status Comments Maternal Grandmother Paternal Grandfather Paternal Grandmother Social History Tobacco Use Types Packs/Day Years [...] Mass Index 35.97 04/30/2023 12:19 PM EDT Plan of Treatment Health Maintenance Due Date Last Done Comments [facility]-/Child/Adol SDOH Screenings 1994 [facility]-IPV Vaccines (2 of 3 - 4-dose series) 04/01/1998 03/04/1998 [facility]-Varicella Vaccines (1 of 2 - 13+ 2-dose series) 2007 [facility]- SDOH Screenings 01/29/2012 [facility]-Adult SDOH Screenings 01/29/2012 [facility]-Hepatitis B Vaccines (1 of 3 - 19+ 3-dose series) 2013 [facility]-HPV/Cotest 01/29/2024 [id number] Vaccine (1 - 2023-25 season) 2024 [facility]-Depression Screening 04/30/2024 04/30/2023 [facility]-Influenza Vaccine (#1) 2024 08/13/2022 [facility]-Cervical Cancer Screening 08/27/2025 [facility]-Pap Smear 08/27/2025 08/27/2022 [facility]-DTaP,Tdap,and Td Vaccines (5 - Td or Tdap) 12/16/2026 12/16/2016, 01/05/2016, 02/25/2006, Additional history exists [facility]-Zoster Vaccines (1 of 2) 01/29/2044 [facility]-RSV Vaccine: 60+ Years or (1 - 1-dose 75+ series) 2069 [facility]-HIV Screening Completed 04/30/2023 [facility]-Obesity Intervention Completed 023, 08/19/2022, 08/14/2022 [facility]-HIB Vaccines Aged Out No longer e ligible based on patient's age to complete this topic [facility]-HPV Vaccines Aged Out No longer e ligible based on patient's age to complete this topic [facility]-Hepatitis A Vaccines Aged Out No longer eligible based on patient's age to complete this topic [facility]-Pneumococcal Vaccine: Pediatrics (0 to 5 Years) and At-Risk Patients (6 to 64 Years) Aged Out No longer eligible based on patient's age to complete this topic [facility]-Rotavirus Vaccines Aged Out No lo nger eligible based on patient's age to complete this topic Procedures Procedure Name Priority Date/Time Associated Diagnosis Comments HIV 1/2 ANTIBODY/ANTIGEN SCREEN WITH REFLEX TO HIV I/II DIFFERENTIATION Routine 04/30/2023 1:36 PM EDT Liver disease, unspecified Hepatitis C virus infection without hepatic coma, unspecified chronicity PAP TEST - CYTOLOGY Routine 08/27/2022 from Last 3 Months or Most Recently Relevant to Health Maintenance Results * HIV 1 & 2 Antibody/Antigen Screen (04/30/2023 1:36 PM EDT) HIV 1 & 2 Antibody/Antigen Screen Non Reactive Non Reactive 04/30/2023 3:32 PM EDT [facility] Comment:Screening for HIV 1 & 2 antibodies, and P24 antigen is NONREACTIVE. No confirmatory testing is required. Blood Venous blood specimen / Unknown Venipuncture / Unknown 04/30/2023 1:36 PM EDT 04/30/2023 1:36 PM EDT us Iam Mayen APRN, DNP LAB BLOOD ORDERABLES F inal Result [facility] [address] [place] [id number] * Pap Test (08/27/2022) Swab Vaginal and cervical cytologic material / Unknown us Flavia Colon STRIP CATCHER LAB CYTOLOGY ORDERABLES Candy l Result from Last 3 Months or Most Recently Relevant to Health Maintenance Insurance [employer] [place] [facility] MEDICAID DENTAL [facility] MEDICAID [place] Care Teams Mothers Helper Relationship Specialty Start Date End Date Sinan Borges MD [address] [place] [address] PCP - General 01/10/21
--- OUTSIDE RECORDS SUMMARY | 2024-08-05 23:39 | XMS_ITS | Encounter Summary ---
Author Organization Healthcare Address [address] [place] [address] Care Team Providers Care Utility Division Project Manager Name Role Phone Sinan Borges MD Primary Care Provider [phone] Encounter Details Date Type Department Care Team (Latest Contact Info) Description 08/19/2022 1:45 PM EST Clinical Support [facility] [address] [place] [address] Encounter for surveillance of injectable contraceptive (Primary [...] PM EST documented as of this encounter Miscellaneous Notes * Clinician Note - Justa Henriquez - 08/19/2022 1:45 PM EST Patient supplied medication for her injection which was given on 08-19-22 in Left deltoid per Richar's order.[facility]#[id number] documented in this encounter Plan of Treatment Not on file documented as of this encounter Visit Diagnoses Diagnosis Encounter for surveillance of injectable contraceptive- Primary documented in this encounter Administered Medications Inactive Administered Medications - up to 3 most recent administrations Medication Order MAR Action Action Date Dose Rate Site medroxyPROGESTERone (Depo-Provera) injection syringe 150 mg 150 mg, Intramuscular, Once, 1 dose, On Wed08/19/22 at 1430, RoutineIndications:Encounter for surveillance of injectable contraceptive Given 08/19/2022 2:09 PM EST 150 mg Right Deltoid Given 08/19/2022 2:01 PM EST 150 mg Ri ght Deltoid documented in this encounter Additional Health Concerns Assessment Noted Time A fall risk assessment has been complete d for the patient 08/14/2022 8:43 AM EST documented as of this encounter Care Teams Utility Division Project Manager Relationship Specialty Start Date End Date iSnan Borges MD [address] [place] [address] PCP - General 01/10/21 documented as of this encounter
--- OUTSIDE RECORDS SUMMARY | 2024-08-05 23:39 | XMS_ITS | Encounter Summary ---
Author Organization [facility] Address [address] [place] [address] Care Team Providers Care Cattle Brander Name Role Phone Sinan Borges MD Primary Care Provider [phone] Encounter Details Date Type Department Care Team (Late st Contact Info) Description 05/04/2023 Orders Only [facility] [address] [place] [address] Iam Mayen, ASSISTANT BASEBALL COACH, DNP [address] [place] [address] Hep C w/o coma, chronic (CMS/HCC) (Primary Dx) Social History Tobacco Use Types [...] as of this encounter Miscellaneous Notes * Progress Notes - Tamie Phoenix PharmD - 05/04/2023 9:54 AM EDT Rx for Sof/José x 12 weeks sent to [facility] for processing documented in this encounter Plan of Treatment Not on file documented as of this encounter Visit Diagnoses Diagnosis Hep C w/o coma, chronic (CMS/HCC)- Primary Chronic hepatitis C without mention of hepatic coma documented in this encounter Additional Health Concerns Assessment Noted Time A fall risk assessment has been complete d for the patient 04/30/2023 12:20 PM EDT A Body Mass Index follow-up plan has been documented for the patient 05/02/2023 11:25 AM EDT documented as of this encounter Care Teams Cattle Brander Relationship Specialty Start Date End Date Sinan Borges MD [address] [place] [address] PCP - General 01/10/21 documented as of this encounter
[2024-08-05 23:45] VITALS: BP 108/75; PULSE 87; RESP 17; TEMP 36.6; O2SAT 98; BMI 33.7
--- NOTE | 2024-08-05 23:47 | PC.NURSE ---
report received from Rajiv Rosen RN from [facility] at 1897
--- NOTE | 2024-08-06 00:10 | PC.NURSE ---
Surgery team called in, spoke with Chichi Clemens, and Nelly.
--- NOTE | 2024-08-06 00:24 | P.HP_ITS ---
History of Present Illness *Admission Date: 08/06/24 *Reason for visit:: Labor *History of present illness: Ginny Tripp is a 29-year-old at 38 weeks and 3 days gestation who presented to labor and delivery via EMS from [facility] with regular painful contractions and was noted to be 9cm with a bulging bag of water. Her has been complicated by history of drug abuse, previously has methamphetamines and cocaine. She has a history of hepatitis C. It also appears that she is following for renal pyelectasis throughout her . On presentation endorse good movement. O+, antibody negative, rubella immune, hepatitis B negative, hepatitis C reactive, RPR negative, HIV negative 1 hour GTT: 89 PFSH PFSH Disclaimer: The information contained in this section may have been updated after the patient was seen, as this information can be updated by other users. Medical History Drug use affecting , antepartum Methamphetamine abuse Hepatitis C Surgical History History of surgery on arm Hx of section Family History Other No significant family history Social History Smoking Status: Current every day smoker tobacco type: cigarettes packs per day: 1 and e-cigarettes alcohol intake: never substance use type: former substance user and marijuana current occupational status: employed Travel in the last 8 weeks: None Other Medical History Have you received the Flu Vaccine for this season: No Have you received the Pneumonia Vaccine: No Review of Systems Review of Systems Review of systems (narrative): Review of Systems Constitutional: Denies fever, chills, and sweats Eyes: Denies vision change/ pain Respiratory: Denies cough and shortness of breath Cardiovascular: Denies chest pain and lightheadedness Gastrointestinal: Admits abdominal pain with contractions. Denies nausea, vomiting. Genitourinary: Denies dysuria and incontinence Musculoskeletal: Denies shoulder pain and back pain Neurological: Denies change in speech or headaches Meds Home Medications and Allergies Home Medications ?Medication ?Instructions ?Recorded ?Confirmed ?Type ferrous sulfate 325 mg (65 mg 325 mg PO DAILY #30 tabs 02/14/24 08/01/24 Rx iron) tablet vits no.126-ferrous fum 1 tab PO DAILY 03/13/24 08/01/24 History 28 mg iron-folic acid 800 mcg tablet (Classic ) New Prescriptions to Start Prescriptions: Allergies Allergy/AdvReac Type Severity Reaction Status Date / Time No Known Allergies Allergy Verified 08/01/24 14:32 Exam Data for Last 24 hours I & O for Last 24 hours: Intake & Output 08/03/24 08/04/24 08/05/24 08/06/24 23:59 23:59 23:59 23:59 Weight 209 lb 7.026 oz Narrative: General: patient is alert oriented in no mild distress with contractions HEENT: NCAT, EOMI, moist mucous membranes, neck supple with full ROM Cardiovascular: RRR +S1/S2, no murmurs or rubs Pulmonary: Clear to auscultation bilaterally, nonlabored breathing, symmetric chest rise Abdominal: Gravid abdomen appropriate for gestation. No guarding, rebound, or tenderness noted. Extremities: trace edema, no tenderness or cyanosis noted Skin: Normal turgor, intact, warm. Negative for erythema, pallor, petechia, or lesions Neurologic: Negative for sensory or motor deficit Psychiatric: Normal affect, normal thought process, good judgment and insight, n o depression or anxious mood appreciated. *Routine HEENT Exam Head: Present normocephalic and atraumatic Eye: Present EOMI, PERRL and normal accommodation; Absent conjunctival icterus, scleral injection, nystagmus or exophthalmos ENT: Present mucous membranes moist *Routine Respiratory Exam Respiratory: Present CTA bilaterally, normal respiratory effort, able to speak in complete sentences and symmetric chest movement; Absent accessory muscle use, decreased breath sounds, rales, respiratory distress, wheezes, distant breath sounds or diminished air movement *Routine Cardiovascular Exam Cardiovascular: Present RRR, Normal S1 and Normal S2; Absent murmur or gallop *Routine Abdominal Exam Abdominal: Present soft and normoactive bowel sounds; Absent tenderness, distended, rebound or guarding *Routine Rectal Exam Rectal:: deferred *Routine Genitalia Exam Genitalia:: normal female Assessment and Plan *Assessment and plan (1) Hepatitis C: Status: Acute Category: Medical Code(s): B19.20 - Unspecified viral hepatitis C without hepatic coma (2) Hx of section: Status: Acute Category: Surgical Code(s): Z98.891 - History of uterine scar from previous surgery (3) Active labor at term: Status: Acute Category: Medical Plan - Monitor vitals - Admit to L&D for repeat delivery - External FHR and TOCO monitor - Exam on admission: 9cm and a bulging bag of water - Blood type: O+ - Hemoglobin: 11.1, Plt: 325 - Plan for spinal anesthesia - Anticipate delivery of male infant Reviewed the risks benefits and alternatives to Repeat delivery. Patient continued to request delivery and not a trial of labor. Discussed the risk of bleeding, infection injury to the surrounding structures. Patient consented to blood transfusion to medically necessary. Reviewed the rar e risk of hysterectomy if bleeding is unable to be controlled. Discussed risk of infection, the patient has no allergies and will receive 2 g of Ancef preoperatively. Reviewed the risk of injury to surrounding structures including the bowel, bladder, reproductive organs, and neurovascular bundles. Patient voiced understanding. Discussed the increased risk with prior surgery and scarring. Patient and significant other voiced understanding desire to proceed
[2024-08-06 00:44] LABS: Basophils # 0.1 K/mm3 (0-0.2); Basophils % 0.4 % (0.1-2.0); Eosinophils # 0.1 K/mm3 (0.0-0.4); Eosinophils % 0.6 % (0.1-12.0); Hemoglobin 12.8 g/dL (12.2-16.2); Lymphocytes % 14.4 % (10-50); Mean Corpuscular HGB Conc 32.9 g/dL (31.8-35.4); Mean Corpuscular Hemoglobin 30.7 pg (27.0-31.2); Mean Corpuscular Volume 93.2 fl (81-99); Mean Platelet Volume 10.7 fl (7.4-10.4); Monocytes # 0.8 K/mm3 (0.1-1.0); Monocytes % 5.6 % (1.7-9.3); Neutrophils # 10.7 K/mm3 (1.8-7.8); Neutrophils % 79.1 % (37.0-80.0); Platelet Count 367 K/mm3 (142-424); Red Blood Count 4.18 M/mm3 (4.20-5.40); White Blood Count 13.6 K/mm3 (4.8-10.8)
--- NOTE | 2024-08-06 00:55 | P.PCN_ITS ---
Delivery Note Delivery Date:: 08/06/24 Delivery Time:: 00:47 Anesthesia Type: None Was labor medically induced?: No Induction method: none Gestational age (weeks): 38 Infant delivered prior to 39 weeks?: Yes Justification for early elective delivery:: Active Labor Gender: Male at 1 minute: 8 at 5 minutes: 8 Delivery Procedure:: Preoperative diagnosis: 1. at 38 completed this weeks gestation, vertex 2. Rh positive 3. Active Labor 4. Previous delivery Postoperative diagnosis: 1. at 38 completed this weeks gestation, vertex 2. Rh positive 3. Active Labor 4. Previous delivery EBL: 350mL Specimen: 1. Cord blood 2. Cord gasses 3. Placenta Findings: 1. Liveborn viable male infant: unknown. Apgars 8/8 at 1 and 5 minutes respectively. Weight pending at time of dictation 2. Left periclitoral hemostatic laceration Complications: None Procedure: Non operative spontaneous vaginal delivery. Ginny Tripp is a 29yo who presented from [facility] ED with regular painful contractions and was noted to be 9cm/100%/0station with a bulging bag of water. Pt reported she desired a repeat delivery with bilateral salpingectomy. She was admitted, IV access obtained, and we began preparing to go to the OR. She was counseled extensively on a repeat delivery. An extensive hx of was unable to be obtained secondary to the patient being in a signicant amount of pain. We reviewed surgical hx and allergies. She admitted to a drink of EtOH yesterday and vape use. Upon arrival to the OR, around 0041, when she was moving to the OR bed it was noted she had ruptured, estimated around 0038. She was checked and noted to be +3 station. Ginny was in a significant amount of pain and wanted to keep her thighs closed. I discussed with the patient that the was in the vagina and would possibly deliver before we could obtain a spinal or general anesthesia and get the surgery started. She consented to a vaginal delivery. The infant remained on the monitor throughout this entire process and heart rate remained around 140-150. With effective maternal pushing there was a nonoperative spontaneous vaginal delivery at 0047. There was no nuchal cord. The anterior shoulder delivered, followed by the posterior shoulder without dystocia. The body and lower extremities delivered without difficulty. The infant was bulb suctioned and was crying immediately following delivery. The infant was stimulated and and approximately one minute was appreciated for delayed cord clamping. The umbilical cord was doubly clamped and cut. Cord blood was collected and sent for routine testing. While delivering the placenta the pt remained in a significant amount of pain, anesthesia gave her morphine for relief. The placenta delivered with cord traction and suprapubic contertraction. Pitocin was started. Placenta was sent to pathology. The uterus was firm and bleeding was minimal. The perineum, vaginal stuart, cervix, and paraurethral area were inspected thoroughly. A small left periclitoral laceration was noted. The laceration was hemostatic. The cervix and vaginal stuart were inspected and noted to be hemostatic. This concluded the delivery. The patient was counseled regarding the events of the delivery and repair. The patient tolerated the delivery well. All counts were correct by nursing. Mother and were doing well upon my leaving the OR. Placental Delivery Description: Spontaneous
[2024-08-06 01:00] LABS: Alanine Aminotransferase 40 U/L (12-78); Albumin Level 3.5 g/dl (3.5-5.0); Albumin/Globulin Ratio 1.2 (1.1-1.8); Alkaline Phosphatase 289 U/L (38-126); Aspartate Amino Transferase 59 U/L (14-36); Bilirubin,Total 1.5 mg/dl (0.2-1.3); Blood Urea Nitrogen 13 mg/dl (7-17); Calcium 9.1 mg/dl (8.4-10.2); Carbon Dioxide 18 mmol/L (22.0-30.0); Chloride 107 mmol/L (98-107); Creatinine Clearance Estimated 154 mL/min (50-200); Estimated Glomerular Filt Rate 84 ml/min (>60); GFR (African American) 102 ML/MIN (>60); Glucose 93 mg/dl (74-100); Sodium 134 mmol/L (136-145); Total Protein,Serum 6.5 g/dl (6.3-8.2)
--- NOTE | 2024-08-06 01:00 | PC.NURSE ---
late entry: Pt entered OR at 0041 for repeat c/s. While transferring to OR table with help of nursing staff, it was determined by MD Patton that baby would be delivered vaginally vs surgically. 46-viable infant male born [birth year]- this RN administered IM Methergine per v.o. from MD Patton 0105- pt brought back upstairs to OB staff in stable condition. This RN sent cord gas to respiratory and placenta to lab for pathology as directed by MD Patton No OR charting completed due to pt never having surgery in the OR suite d/t vaginal delivery
--- NOTE | 2024-08-06 01:10 | P.PNANES_ITS ---
[facility] Disclaimer: The information contained in this section may have been updated after the patient was seen, as this information can be updated by other users. Medical History Drug use affecting , antepartum Methamphetamine abuse Hepatitis C Surgical History History of surgery on arm Hx of section Family History Other No significant family history Social History Smoking Status: Current every day smoker tobacco type: cigarettes packs per day: 1 and e-cigarettes alcohol intake: never substance use type: former substance user and marijuana current occupational status: employed Travel in the last 8 weeks: None [facility] Anesthesia Checklist Patient Identification Patient Identification: Arm Band and Verbal (Name & ) Structural Data Admitted From: Inpatient ([id number]) Planned Operative Procedure/s: Repeat C-sxn Consent for Planned Operative Procedure(s) Verified: Yes Verified Documents: Surgical Consent and History and Physical NPO Status Verified Time NPO: 23:30 Chart Verification Results Verified: CBC and BMP Additional verifications Patient : Yes Anesthesia Reactions: No Cardiovascular Assessment Heart Sounds: S1 & S2 Pulse Rhythm: Irregular Peripheral Edema: Yes (2+ ALESSIA LE) Airway Assessment Mallampati Score:: Class II C-Spine Mobility Assessed: Yes (FROM demonstrated) TMJ Mobility Assessed: Yes Dentition: Dentures-good fit (Nothing loose per pt.) Neurological Assessment Level of Consciousness: Awake, Alert, Appropriate, Follows Commands and Restless Hx Seizures: No Numbness or tingling in extremities: No Anesthesia Plan Anesthesia Risk discussed: Yes Anesthesia Plan: Verified ASA Class: II Anesthesia Type: Spinal
--- NOTE | 2024-08-06 01:13 | EXP.ANES.I ---
[facility] Anesthesia Record Part I Anesthesia Record I Intake, IV Amount: 300 Hydration: Adequate Estimated blood loss (mL): 200 Urine output (mL): 0 Blood Pressure: 121/56 SaO2: 100 Pulse Rate: 93 Airway Patency: Patent Respiratory Rate: 18 Temperature: 97.3 F Patient is:: Awake (Talking), Nasal O2 (4L/min) and Stable Stable to PACU at:: 01:05
[2024-08-06 01:15] VITALS: BP 121/56; PULSE 93; RESP 18; TEMP 36.3; O2SAT 100
[2024-08-06 01:23] LABS: Microscopic, Urine URINE MICROSCOPIC (MICROSCOPIC)
[2024-08-06 01:26] LABS: Blood, Urine 3+ (Negative); Glucose,Urine (UA) Negative (Negative); Ketones,Urine 2+ (Negative); Leukocyte Esterase,Urine Negative (Negative); Nitrate,Urine POSITIVE (Negative); Protein,Urine 2+ (Negative); Specific Gravity, Urine >= 1.030 (1.005-1.030)
[2024-08-06 01:37] LABS: Appearance,Urine Cloudy (Clear); Bilirubin,Urine 2+ (Negative); Color,Urine Dark Yellow (Yellow)
[2024-08-06 01:46] LABS: WBC,Urine Occasional #/hpf (0-3)
[2024-08-06 01:47] LABS: Bacteria,Urine 1+ /lpf; RBC,Urine 20-50 #/hpf (0-3)
[2024-08-06 01:53] LABS: Barbiturates Screen,Urine Negative ng/ml (<200)
[2024-08-06 01:54] LABS: Benzodiazepines Screen,Urine Negative ng/ml (<200)
[2024-08-06 01:55] LABS: Cannabinoid Screen,Urine Positive ng/ml (<50); Cocaine Screen,Urine Negative ng/ml (<300)
[2024-08-06 01:56] LABS: Opiate Screen,Urine Negative ng/ml (<300)
[2024-08-06 01:57] LABS: Phencyclidine Screen,Urine Negative ng/ml (<25)
[2024-08-06 04:08] LABS: Methadone Screen,Urine Negative ng/ml (<300)
[2024-08-06 07:53] VITALS: BP 120/77; PULSE 95; RESP 17; TEMP 36.6; O2SAT 98
[2024-08-06 08:23] LABS: Basophils % 0.1 % (0.1-2.0); Eosinophils % 0.1 % (0.1-12.0); Hematocrit 36.2 % (37.0-47.0); Hemoglobin 12.1 g/dL (12.2-16.2); Lymphocytes # 1.6 K/mm3 (0.7-4.5); Mean Corpuscular HGB Conc 33.3 g/dL (31.8-35.4); Mean Corpuscular Volume 93.1 fl (81-99); Mean Platelet Volume 11.4 fl (7.4-10.4); Monocytes # 0.7 K/mm3 (0.1-1.0); Monocytes % 3.5 % (1.7-9.3); Neutrophils # 17.1 K/mm3 (1.8-7.8); Neutrophils % 88.3 % (37.0-80.0); Platelet Count 361 K/mm3 (142-424); Red Blood Count 3.89 M/mm3 (4.20-5.40); Red Cell Distribution Width 13.1 % (11.5-17.5); White Blood Count 19.3 K/mm3 (4.8-10.8)
[2024-08-06] MEDS: NICOTINE 21MG/24HR PATCH 21 MG TD (08:35)
[2024-08-06 08:58] LABS: MANUAL DIFFERENTIAL MANUAL DIFFERENTIAL (MANUAL DIFF)
--- NOTE | 2024-08-06 09:01 | PC.NURSE ---
Addendum entered by Evelin Borges 08/09/24 13:06: Per CPS Nasra infant will discharge home w/ patient. CPS will continue to follow up and in home services will be started. Addendum entered by Evelin Borges 08/08/24 12:09: CPS Nasra Banuelos ([phone]) onsite to speak w/ patient. Per Nasra she will be back at [facility] tomorrow morning to write prevention plan for this patient. Addendum entered by Yolie Sheffield RN 08/08/24 11:01: [employer] Records Analyst from CPS here to see pt. Notifradha Diaz (CM) to notify Keyshawn, (CAREN). Addendum entered by Evelin Borges 08/08/24 09:15: Per OB staff (Sadia) CPS stated they will be onsite today to speak w/ patient. Addendum entered by Evelin Borges 08/07/24 08:31: Per Central Intake this case DOES meet criteria for investigation. ID#[id number] Addendum entered by Marie Connelly RN 08/06/24 11:20: Spoke with Jude Castro ([phone]) at 0924 on 08/06/24 regarding case. Jude reports that he is unsure of response time for an internal affairs investigator. He reports that someone may be by tomorrow or within 48 hours to see patient. I reported that the patient and could be here for a total of 5 days due to withdrawal, if is not transferred to a higher level of care. Jude reports that he would be back in contact with me (Jesenia Connelly RN) today with a answer on when someone would be patient. Original Note: Spoke with Puja King with Central Intake regarding patient. Reported on positive maternal urine drug screen for THC and amphetamine, reported that newborns urine drug screen was also positive for amphetamine only. Patient reported to Dr. Patton per reports, that she admitted to alcohol use yesterday (08/05/24) and vape use, but denies to this nurse that alcohol use and substance use were not used during and that she is a former substance user of marijuana, IV drugs, heroin, methamphetamine, painkillers, and crack/cocaine. Patient reports that she does not have custody of her current son (León) and that her aunt has custody. Reported that is showing signs of withdrawal. INTAKE ID # [id number]
--- NOTE | 2024-08-06 09:29 | HMH.PHAINT1 ---
Pharmacy Intervention Comments: MEDICATION RECONCILIATION COMPLETE USING MOST RECENT OB OFFICE VISIT NOTE AND EXTERNAL PHARMACY FILL HISTORY.
[2024-08-06 11:12] LABS: Lymphocytes % 11 % (10-50); Neutrophils % 89 % (42-76); Platelet Estimate Normal; RBC Morphology Normal; Total Cells Counted 100
[2024-08-06 12:25] LABS: RPR W/RFX Titers Nonreactive (Nonreactive)
[2024-08-06] MEDS: ACETAMINOPHEN 500MG TAB 1000 MG PO (14:34)
[2024-08-06] MEDS: IBUPROFEN 400 MG TABLET 800 MG PO (14:35)
--- NOTE | 2024-08-06 15:20 | P.PN_ITS ---
Subjective *Date: 08/06/24 *Time: 15:21 Interval history: Ginny Tripp is a G2, P2 day #1 following a successful at 38 weeks and 3 days gestation. Doing well , endorses some abdominal cramping. She is doing well, sitting up in bed, and visiting with family. -Reports pain is well-controlled -Reports she is tolerating p.o. without nausea or vomiting. -Reports her lochia is scant. -Desires to use Depo for contraception -She is bottle-feeding her male infant -Ambulating, voiding difficulty or dysuria. Denies chest pain shortness of breath or pain in her legs. No further complaints at this time. Exam Data for Last 24 hours Vital signs and Labs for Last 24 Hours: Temp Pulse Resp BP Pulse Ox O2 Del Method 97.9 F 95 H 17 120/77 98 Room Air 08/06/24 07:53 08/06/24 07:53 08/06/24 07:53 08/06/24 07:53 08/06/24 07:53 08/06/24 07:53 Laboratory Results - last 24 hr 08/05/24 23:30: Urine Color Dark yellow, Urine Appearance Cloudy, Urine pH 5.0, Ur Specific [place] >= 1.030, Urine Protein 2+ A, Urine Glucose (UA) Negative, Urine Ketones 2+, Urine Blood 3+ A, Urine Nitrate Positive A, Urine Bilirubin 2+ A, Urine Urobilinogen 1.0, Ur Leukocyte Esterase Negative, Urine RBC 20-50, Urine WBC Occasional, Ur Squamous Epith Cells 5-10, Urine Bacteria 1+, Urine Opiates Screen Negative, Urine Methadone Screen Negative, Ur Barbituates Screen Negative, Ur Phencyclidine Scrn Negative, Ur Amphetamines Screen TNP, U Benzodiazepines Scrn Negative, Urine Cocaine Screen Negative, U Marijuana (THC) Screen Positive H 08/06/24 00:30: WBC 13.6 H, RBC 4.18 L, Hgb 12.8, Hct 39.0, MCV 93.2, MCH 30.7, MCHC 32.9, RDW 13.0, Plt Count 367, MPV 10.7 H, Neut % (Auto) 79.1, Lymph % (Auto) 14.4, Garza % (Auto) 5.6, Eos % (Auto) 0.6, Baso % (Auto) 0.4, Neut # (Auto) 10.7 H, Lymph # (Auto) 2.0, Garza # (Auto) 0.8, Eos # (Auto) 0.1, Baso # (Auto) 0.1, Sodium 134 L, Potassium 4.0, Chloride 107, Carbon Dioxide 18 L, Anion Gap 13.0, BUN 13, Creatinine 0.80, Estimated Creat Clear 154, Estimated GFR 84, Est GFR ( Amer) 102, Glucose 93, Calcium 9.1, Total Bilirubin 1.5 H, AST 59 H, ALT 40, Alkaline Phosphatase 289 H, Total Protein 6.5, Albumin 3.5, Globulin 3.0, Albumin/Globulin Ratio 1.2, Blood Type O Positive, Antibody Screen Negative 08/06/24 07:55: WBC 19.3 H D, RBC 3.89 L, Hgb 12.1 L, Hct 36.2 L, MCV 93.1, MCH 31.0, MCHC 33.3, RDW 13.1, Plt Count 361, MPV 11.4 H, Neut % (Auto) 88.3 H, Lymph % (Auto) 8.0 L, Garza % (Auto) 3.5, Eos % (Auto) 0.1, Baso % (Auto) 0.1, Neut # (Auto) 17.1 H, Lymph # (Auto) 1.6, Garza # (Auto) 0.7, Eos # (Auto) 0.0, Baso # (Auto) 0.0, Total Counted 100, Neutrophils % (Manual) 89 H, Lymphocytes % (Manual) 11, Platelet Estimate Normal, RBC Morphology Normal I & O for Last 24 hours: Intake & Output 08/03/24 08/04/24 08/05/24 08/06/24 23:59 23:59 23:59 23:59 Intake Total 300 / 300 Balance 300 / 300 Weight 209 lb 7.026 oz Narrative: General: patient is alert oriented in no acute distress and responds appropriately to questions. Appears to be in minimal pain. HEENT: NCAT, EOMI, moist mucous membranes, neck supple with full ROM Cardiovascular: RRR +S1/S2, no murmurs or rubs Pulmonary: Clear to auscultation bilaterally, nonlabored breathing, symmetric chest rise Abdominal: Fundus at the umbilicus, firm, and tenderness appropriate for the period. Extremities: trace edema, no tenderness or cyanosis noted Skin: Normal turgor, intact, warm. Negative for erythema, pallor, petechia, or lesions Neurologic: Negative for sensory or motor deficit Psychiatric: Normal affect, normal thought process, good judgment and insight, no depression or anxious mood appreciated. Assessment and Plan *Assessment and plan (1) Active labor at term: Status: Acute Category: Medical (2) Positive urine drug screen: Problem Comment: THC+ Status: Acute Category: Medical Code(s): R82.5 - Elevated urine levels of drugs, medicaments and biological substances (3) Drug use affecting , antepartum: Status: Acute Category: Medical Code(s): O99.320 - Drug use complicating , unspecified trimester (4) Hx of section: Status: Acute Category: Surgical Code(s): Z98.891 - History of uterine scar from previous surgery (5) Methamphetamine abuse: Status: Acute Category: Medical Code(s): F15.10 - Other stimulant abuse, uncomplicated (6) , delivered: Status: Acute Category: Medical Code(s): O34.219 - Maternal care for unspecified type scar from previous delivery Plan Stable. PPD#1 s/p without repair -Doing well. VSS. Serial lochia and fundal checks. -Continue with perineal ice packs for discomfort -Hemoglobin: 12.8--> 12.1 -O+/antibody negative -Bottlefeeding, male infant -Desires circumcision, consents signed and risks reviewed -Contraception: Desires BSG. Today the pt requested depo prior to discharge. -Follow-up 2 weeks for routine visit -Dispo: home tomorrow or wednesday pending mother/ status
[2024-08-06 20:37] VITALS: BP 125/60; PULSE 93; RESP 18; TEMP 36.8; O2SAT 98
[2024-08-07] VITALS: BP 124/72; PULSE 79; RESP 18; TEMP 36.7; O2SAT 96
[2024-08-07 04:00] VITALS: BP 114/62; PULSE 84; RESP 18; TEMP 36.7; O2SAT 98
[2024-08-07 08:07] VITALS: BP 120/75; PULSE 83; RESP 16; TEMP 36.6; O2SAT 99
[2024-08-07] MEDS: NICOTINE 21MG/24HR PATCH 21 MG TD (08:11)
[2024-08-07] MEDS: ACETAMINOPHEN 500MG TAB 1000 MG PO ×2 (08:11→19:54)
--- NOTE | 2024-08-07 08:47 | EXP.ACUTE.PN ---
Subjective *Date: 08/07/24 *Time: 13:09 Interval history: PPD # 1 s/p Feeling well. Pain controlled. Formula feeding. Lochia is appropriate. Voiding without difficulty and passing flatus. Tolerating regular diet. Denies fever/chills, chest pain and shortness of breath. No headaches, vision changes, lightheadedness/dizziness. She admits to mild bilateral lower extremity swelling. Ambulating well ad salena. Medical Exam Vital signs and Labs for Last 24 Hours: Vital Signs Temp Pulse Resp BP Pulse Ox O2 Del Method 08/07/24 08:07 97.9 F 83 16 120/75 99 Room Air 08/07/24 04:00 98.1 F 84 18 114/62 98 Room Air 08/07/24 00:00 98.1 F 79 18 124/72 96 Room Air 08/06/24 20:37 98.2 F 93 H 18 125/60 98 Room Air Laboratory Results - last 24 hr 08/06/24 07:55: WBC 19.3 H D, RBC 3.89 L, Hgb 12.1 L, Hct 36.2 L, MCV 93.1, MCH 31.0, MCHC 33.3, RDW 13.1, Plt Count 361, MPV 11.4 H, Neut % (Auto) 88.3 H, Lymph % (Auto) 8.0 L, Castro % (Auto) 3.5, Eos % (Auto) 0.1, Baso % (Auto) 0.1, Neut # (Auto) 17.1 H, Lymph # (Auto) 1.6, Castro # (Auto) 0.7, Eos # (Auto) 0.0, Baso # (Auto) 0.0, Total Counted 100, Neutrophils % (Manual) 89 H, Lymphocytes % (Manual) 11, Platelet Estimate Normal, RBC Morphology Normal I & O for Labs for Last 24 Hours: Intake & Output 08/04/24 08/05/24 08/06/24 08/07/24 23:59 23:59 23:59 23:59 Intake Total 300 / 300 Balance 300 / 300 Weight 209 lb 7.026 oz Head: Present atraumatic and normocephalic ENT: Present normal exam Neck: Present normal inspection Respiratory: Present CTA bilaterally and normal respiratory effort Cardiac: Present Reg Rate and Rhythm GI: Present soft and normal bowel sounds; Absent distention or tenderness Comments:: Uterine fundus firm and below umbilicus Rectal (female): Present deferred (female): Present deferred Extremities: Present full ROM and edema (+1 bilateral lower extremity edema); Absent calf tenderness Neuro: Present alert, awake and moves all extremities Assessment and Plan *Assessment and plan (1) , delivered: Status: Acute Category: Medical Code(s): O34.219 - Maternal care for unspecified type scar from previous delivery (2) Active labor at term: Status: Acute Category: Medical (3) Positive urine drug screen: Problem Comment: THC+ Status: Acute Category: Medical Code(s): R82.5 - Elevated urine levels of drugs, medicaments and biological substances (4) Hepatitis C: Status: Acute Qualifiers: Viral hepatitis chronicity: unspecified Hepatic coma status: without hepatic coma Qualified Code(s): B19.20 - Unspecified viral hepatitis C without hepatic coma Category: Medical Code(s): B19.20 - Unspecified viral hepatitis C without hepatic coma (5) Hx of section: Status: Acute Category: Surgical Code(s): Z98.891 - History of uterine scar from previous surgery (6) Drug use affecting , antepartum: Status: Acute Category: Medical Code(s): O99.320 - Drug use complicating , unspecified trimester (7) Methamphetamine abuse: Status: Acute Category: Medical Code(s): F15.10 - Other stimulant abuse, uncomplicated Plan Continue routine care Encouraged increased ambulation AM Hgb 12.1 (12.8), AM WBC 19.3... will repeat CBC this afternoon Plan d/c home tomorrow
[2024-08-07] MEDS: IBUPROFEN 400 MG TABLET 800 MG PO (13:23)
[2024-08-07 16:19] LABS: Basophils # 0.1 K/mm3 (0-0.2); Basophils % 0.5 % (0.1-2.0); Eosinophils # 0.2 K/mm3 (0.0-0.4); Eosinophils % 1.4 % (0.1-12.0); Hematocrit 32.8 % (37.0-47.0); Lymphocytes # 2.5 K/mm3 (0.7-4.5); Lymphocytes % 23.3 % (10-50); Mean Corpuscular HGB Conc 33.6 g/dL (31.8-35.4); Mean Corpuscular Hemoglobin 30.9 pg (27.0-31.2); Mean Platelet Volume 11.4 fl (7.4-10.4); Monocytes # 0.7 K/mm3 (0.1-1.0); Monocytes % 6.7 % (1.7-9.3); Neutrophils # 7.2 K/mm3 (1.8-7.8); Neutrophils % 68.1 % (37.0-80.0); Platelet Count 318 K/mm3 (142-424); Red Blood Count 3.56 M/mm3 (4.20-5.40); Red Cell Distribution Width 13.3 % (11.5-17.5); White Blood Count 10.6 K/mm3 (4.8-10.8)
[2024-08-07 20:38] VITALS: BP 124/78; PULSE 65; RESP 18; TEMP 37.1; O2SAT 99
[2024-08-08] MEDS: IBUPROFEN 400 MG TABLET 800 MG PO (04:06)
--- NOTE | 2024-08-08 07:29 | EXP.ANES.II ---
[facility] Anesthesia Record Part II Anesthesia Record Part II Discharge Time: 01:35 Destination: Obstetric PACU nurse assessment reviewed?: Yes Patient Condition:: Good Anesthesia Complications:: None Swallowing reflex intact?: Yes Airway Patency: Patent Cyanosis?: No Blood Pressure: 121/56 SaO2: 100 Respiratory Rate: 18 Pulse Rate: 93 Temperature: 97.3 F Mental Status: Alert & Oriented Pain level:: 2 Nausea and/or vomitting:: None Intake, IV Amount: 300 Hydration: Adequate
[2024-08-08 07:31] VITALS: BP 121/56; PULSE 93; RESP 18; TEMP 36.3; O2SAT 100
[2024-08-08] MEDS: NICOTINE 21MG/24HR PATCH 21 MG TD (10:20)
--- NOTE | 2024-08-08 11:44 | P.DS_ITS ---
General Admission date:: 08/05/24 Discharge date: 08/08/24 HPI HPI HPI: Ginny Tripp is a 29-year-old at 38 weeks and 3 days gestation who presented to labor and delivery via EMS from [facility] with regular painful contractions and was noted to be 9cm with a bulging bag of water. Her has been complicated by history of drug abuse, previously has methamphetamines and cocaine. She has a history of hepatitis C. It also appears that she is following for renal pyelectasis throughout her . On presentation endorse good movement. O+, antibody negative, rubella immune, hepatitis B negative, hepatitis C reactive, RPR negative, HIV negative 1 hour GTT: 89 Hospital Course Hospital Course Hospital Course: Ginny Tripp is a 29-year-old G2, P2 day #2 from a successful vaginal delivery after section. She is doing well. She is bottlefeeding her male infant. She delivered on 08/06/2024 at 00 47. Apgars were 8 and 8. Male weighed 7 pounds 1 ounce. She has done well and has remained afebrile with her at her hospitalization. She is eating and drinking and ambulating. Her lochia is normal. She has O Rh+ blood, she is rubella immune and was group B streptococcus negative. She will be discharged home to follow-up with Dr. Roberts in 2 weeks time. She will continue with her vitamins. She was given the usual instructions with respect to limiting her activity, driving and sexual activity. She was given instructions with respect to wound care. Her condition on discharge is stable and improved. Exam Data for Last 24 hours Vital signs and Labs for Last 24 Hours: Temp Pulse Resp BP Pulse Ox O2 Del Method 98.7 F 65 18 124/78 99 Room Air 08/07/24 20:38 08/07/24 20:38 08/08/24 07:31 08/07/24 20:38 08/07/24 20:38 08/07/24 20:38 Laboratory Results - last 24 hr 08/05/24 23:30: Urine Color Dark yellow, Urine Appearance Cloudy, Urine pH 5.0, Ur Specific [place] >= 1.030, Urine Protein 2+ A, Urine Glucose (UA) Negative, Urine Ketones 2+, Urine Blood 3+ A, Urine Nitrate Positive A, Urine Bilirubin 2+ A, Urine Urobilinogen 1.0, Ur Leukocyte Esterase Negative, Urine RBC 20-50, Urine WBC Occasional, Ur Squamous Epith Cells 5-10, Urine Bacteria 1+, Urine Opi ates Screen Negative, Urine Methadone Screen Negative, Ur Barbituates Screen Negative, Ur Phencyclidine Scrn Negative, Ur Amphetamines Screen TNP, U Benzodiazepines Scrn Negative, Urine Cocaine Screen Negative, U Marijuana (THC) Screen Positive H 08/07/24 16:11: WBC 10.6 D, RBC 3.56 L, Hgb 11.0 L, Hct 32.8 L, MCV 92.0, MCH 30.9, MCHC 33.6, RDW 13.3, Plt Count 318, MPV 11.4 H, Neut % (Auto) 68.1, Lymph % (Auto) 23.3, [place] % (Auto) 6.7, Eos % (Auto) 1.4, Baso % (Auto) 0.5, Neut # (Auto) 7.2, Lymph # (Auto) 2.5, [place] # (Auto) 0.7, Eos # (Auto) 0.2, Baso # (Auto) 0.1 I & O for Last 24 hours: Intake & Output 08/05/24 08/06/24 08/07/24 08/08/24 23:59 23:59 23:59 23:59 Intake Total 300 / 300 300 / 300 Balance 300 / 300 300 / 300 Weight 209 lb 7.026 oz Microbiology Reports for the Last 24 Hours: Microbiology 08/05/24 23:30 Urine,Clean Catch Urine Culture - Preliminary Gram Positive Cocci Narrative: General: patient is alert oriented in no acute distress and responds appropriately to questions. Appears to be in minimal pain. HEENT: NCAT, EOMI, moist mucous membranes, neck supple with full ROM Cardiovascular: RRR +S1/S2, no murmurs or rubs Pulmonary: Clear to auscultation bilaterally, nonlabored breathing, symmetric chest rise Abdominal: Fundus below the umbilicus, firm, and tenderness appropriate for the period. Extremities: trace edema, no tenderness or cyanosis noted Skin: Normal turgor, intact, warm. Negative for erythema, pallor, petechia, or lesions Neurologic: Negative for sensory or motor deficit Psychiatric: Normal affect, normal thought process, good judgment and insight, no depression or anxious mood appreciated. Results Data Completed and Pending Labs on day of discharge: Labs from last 24 hours 08/07/24 08/05/24 16:11 23:30 WBC 10.6 D RBC 3.56 L Hgb 11.0 L Hct 32.8 L MCV 92.0 MCH 30.9 MCHC 33.6 RDW 13.3 Plt Count 318 MPV 11.4 H Neut % (Auto) 68.1 Lymph % (Auto) 23.3 [place] % (Auto) 6.7 Eos % (Auto) 1.4 Baso % (Auto) 0.5 Neut # (Auto) 7.2 Lymph # (Auto) 2.5 [place] # (Auto) 0.7 Eos # (Auto) 0.2 Baso # (Auto) 0.1 Urine Color Dark yellow Urine Appearance Cloudy Urine pH 5.0 Ur Specific [place] >= 1.030 Urine Protein 2+ A Urine Glucose (UA) Negative Urine Ketones 2+ Urine Blood 3+ A Urine Nitrate Positive A Urine Bilirubin 2+ A Urine Urobilinogen 1.0 Ur Leukocyte Esterase Negative Urine RBC 20-50 Urine WBC Occasional Ur Squamous Epith Cells 5-10 Urine Bacteria 1+ Urine Opiates Screen Negative Urine Methadone Screen Negative Ur Barbituates Screen Negative Ur Phencyclidine Scrn Negative Ur Amphetamines Screen TNP U Benzodiazepines Scrn Negative Urine Cocaine Screen Negative U Marijuana (THC) Screen Positive H Preliminary micro results at discharge 08/05/24 23:30 Urine Culture - Preliminary Urine,Clean Catch Gram Positive Cocci DS: Diagnosis Discharge Diagnosis (1) , delivered: Status: Acute Code(s): O34.219 - Maternal care for unspecified type scar from previous delivery (2) Active labor at term: Status: Acute (3) Positive urine drug screen: Status: Acute Code(s): R82.5 - Elevated urine levels of drugs, medicaments and biological substances Problem details: THC+ (4) Hepatitis C: Status: Acute Code(s): B19.20 - Unspecified viral hepatitis C without hepatic coma Qualifiers: Viral hepatitis chronicity: unspecified Hepatic coma status: without hepatic coma Qualified Code(s): B19.20 - Unspecified viral hepatitis C without hepatic coma (5) Hx of section: Status: Acute Code(s): Z98.891 - History of uterine scar from previous surgery (6) Drug use affecting , antepartum: Status: Acute Code(s): O99.320 - Drug use complicating , unspecified trimester (7) Methamphetamine abuse: Status: Acute Code(s): F15.10 - Other stimulant abuse, uncomplicated Meds Home Medications and Allergies Home Medications ?Medication ?Instructions ?Recorded ?Confirmed ?Type ferrous sulfate 325 mg (65 mg 325 mg PO DAILY #30 tabs 02/14/24 08/06/24 Rx iron) tablet vits no.126-ferrous fum 1 tab PO DAILY 03/13/24 08/06/24 History 28 mg iron-folic acid 800 mcg tablet (Classic ) ibuprofen 800 mg tablet 800 mg PO Q8H PRN pain #60 tabs 08/08/24 Rx New Prescriptions to Start Prescriptions: Farzana Rico Allergies Allergy/AdvReac Type Severity Reaction Status Date / Time No Known Allergies Allergy Verified 08/01/24 14:32 Discharge Plan Disposition Patient Disposition: Home, Self-Care Discharge Order Discharge Orders: Discharge Order (Routine); Ordered 08/08/24 Ordered By: Farzana Patton Follow up Plan Follow up with: Cas Roberts MD [Staff Physician] - Enter time for follow up Prescriptions/Medication Reconciliation: New ibuprofen 800 mg tablet 800 mg PO Q8H PRN (Reason: pain) Qty: 60 2RF Continued ferrous sulfate 325 mg (65 mg iron) tablet 325 mg PO DAILY Qty: 30 3RF Classic 28 mg iron- 800 mcg tablet 1 tab PO DAILY Problem Reconciliation Problems Reviewed?: Yes Patient Discharge Instructions ACTIVITY: Continue current activity DIET: regular diet Additional Instructions: Congratulations on the delivery of your sweet baby boy. It is my privilege to be a part of your [employer] team and I am so thankful I could be a part of your special day. Discharge: -Take 800 mg Ibuprofen every 8 hours as needed for pain. You can also take 500- 1000 mg of Tylenol in between doses, every 6-8 hours. -Colace can be taken 1-2 times per day as you need to soften your stool. Make sure to drink at least 8 cups of water per day. -Iron supplements can make you constipated. You can take iron tablets every other day if constipation is too bad. -Nothing in the vagina for 6 weeks - no intercourse, douching, tampons. No tub baths or swimming pools. -Do not lift greater than 20pounds for 2 weeks, this is the equivalent of 2 gallons of milk. -Reasons to return to L&D or call On-Call doctor - fever (greater than 100.4) - heavy vaginal bleeding (soaking through 1 pad in less than 2 hours or passing clots that are egg sized) - vaginal discharge (malodorous and/or purulent) - severe headaches, leg tenderness/edema, or any other symptoms that warrant immediate medical attention. depression/blues - Normal to feel anxious/overwhelmed for first 2 weeks - Talk to your doctor if: anxiety lasts over 2 weeks, trouble bonding with baby, withdrawing from other family members, thoughts of harming yourself or others Farzana Patton DO [facility] [phone] *Nothing in the Vagina for 6 weeks* *No strenuous activity* *No heavy lifting* *No tub baths until okay's by MD* Patient Instructions: Depression, Hemorrhage, DI for Pre- eclampsia, DI for Vaginal After Section (), [facility] Post Discharge Instructions Print Language: Palauan Providers Primary Care Provider: Provider,Referral Admit Provider: Farzana Patton Attending Provider: Farzana Patton
[2024-08-08] MEDS: MEDROXYPROGESTERONE ACETATE 150MG/ML SYR 150 MG IM (15:00)
[2024-08-10 12:10] LABS: Amphetamine Positive (.); Amphetamine (GC/MS) >3000 ng/mL (Cutoff=500); Amphetamines Positive (.); Methamphetamine Positive (.); Methamphetamine (GC/MS) >3000 ng/mL (Cutoff=500)
== END 2024-08-08 15:13 | disposition home or self-care (01) | DRG 806 ==
PROVIDERS: Obstetrics & Gynecology; Admitting Provider Obstetrics & Gynecology; Visit Provider Obstetrics & Gynecology
DX: O99.324 Drug use complicating childbirth (principal); O98.42 Viral hepatitis complicating childbirth; Z37.0 Single live birth; Z3A.38 38 weeks gestation of pregnancy; B19.20 Unspecified viral hepatitis C without hepatic coma; F15.10 Other stimulant abuse, uncomplicated; O34.219 Maternal care for unspecified type scar from previous cesarean delivery; N85.8 Other specified noninflammatory disorders of uterus
CPT/HCPCS: 59612; 36415; 59025; 80053; 80307; 80324; 81001; 82800; 85007; 85025; 86592; 86850; 87086; 87088; 87186; 94761; G0283; J1050; J1100; J2270

== ENCOUNTER 2024-09-27 10:51 | Outpatient (CLI) | payer MEDICAID, SELFPAY ==
[2024-09-27 11:26] LABS: Basophils % 0.5 % (0.1-2.0); Eosinophils # 0.4 K/mm3 (0.0-0.4); Eosinophils % 5.2 % (0.1-12.0); Hematocrit 30.5 % (37.0-47.0); Hemoglobin 9.4 g/dL (12.2-16.2); Lymphocytes # 2.6 K/mm3 (0.7-4.5); Lymphocytes % 30.6 % (10-50); Mean Corpuscular HGB Conc 30.8 g/dL (31.8-35.4); Mean Corpuscular Hemoglobin 27.8 pg (27.0-31.2); Mean Corpuscular Volume 90.2 fl (81-99); Mean Platelet Volume 10.9 fl (7.4-10.4); Monocytes # 0.6 K/mm3 (0.1-1.0); Monocytes % 7.6 % (1.7-9.3); Neutrophils # 4.7 K/mm3 (1.8-7.8); Platelet Count 524 K/mm3 (142-424); Red Blood Count 3.38 M/mm3 (4.20-5.40); White Blood Count 8.3 K/mm3 (4.8-10.8)
[2024-09-27 11:27] LABS: Chloride 105 mmol/L (98-107)
[2024-09-27 11:28] LABS: Albumin Level 4.1 g/dl (3.5-5.0); Potassium 4.2 mmoL/L (3.5-5.1); Sodium 138 mmol/L (136-145)
[2024-09-27 11:30] LABS: Blood Urea Nitrogen 11 mg/dl (7-17); Estimated Glomerular Filt Rate 98 ml/min (>60); GFR (African American) 119 ML/MIN (>60)
[2024-09-27 11:31] LABS: Alanine Aminotransferase 14 U/L (12-78); Albumin/Globulin Ratio 1.3 (1.1-1.8); Alkaline Phosphatase 93 U/L (38-126); Anion Gap 13.2 mEq/L (5-15); Aspartate Amino Transferase 26 U/L (14-36); Bilirubin,Total 0.6 mg/dl (0.2-1.3); Calcium 8.8 mg/dl (8.4-10.2); Carbon Dioxide 24 mmol/L (22.0-30.0); Globulin 3.1 g/dL (1.3-3.2); Glucose 85 mg/dl (74-100); Total Protein,Serum 7.2 g/dl (6.3-8.2)
[2024-09-27 12:16] VITALS: BMI 32.1
[2024-09-27 12:38] LABS: HCG,Quantitative < 2 mIU/ml (0-5.42)
== END 2024-09-27 23:59 | disposition home or self-care (01) ==
LOC: PREOP 10:52
PROVIDERS: Visit Provider Nurse Practitioner Obstetrics & Gynecology
DX: Z30.09 Encounter for other general counseling and advice on contraception (principal)
CPT/HCPCS: 80053; 84702; 85025

== ENCOUNTER 2024-10-03 08:08 | Day surgery (SDC) | payer MEDICAID, SELFPAY ==
[2024-09-27 12:25] VITALS: BMI 32.1
[2024-10-03] VITALS (11 sets, daily range): BP systolic 116–135; BP diastolic 60–82; PULSE 58–81; RESP 16–20; TEMP 36.6–43; O2SAT 96–100; BMI 32.1
[2024-10-03] MEDS: CEFAZOLIN SODIUM 2 GM in 0.9 % SODIUM CHLORIDE 100 ML IV (09:15)
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
[2024-10-03] MEDS: ROPIVACAINE 0.5% 30ML VIAL 300 MG (09:39)
--- NOTE | 2024-10-03 10:00 | P.PNANES_ITS ---
[facility] Anesthesia Record Part I Anesthesia Record I Intake, IV Amount: 900 Hydration: Adequate Estimated blood loss (mL): 20 Urine output (mL): 0 Blood Products used (#): none Blood Pressure: 121/62 SaO2: 97 Pulse Rate: 69 Airway Patency: Patent Respiratory Rate: 16 Temperature: 98.4 F Patient is:: Drowsy and Stable Stable to PACU at:: 10:00
--- NOTE | 2024-10-03 10:30 | EXP.OP.NOTE ---
Date of procedure: 10/03/24 Pre-op Diagnosis:: Desire for sterilization Post-op Diagnosis:: Desire for sterilization Procedure performed:: Laparoscopic bilateral self ectomy Surgeon:: Cas Roberts MD INTERNSHIP COORDINATOR:: Jason Young Anesthesia: GETA Estimated blood loss (mL): 25 Clinical Note:: She is a 29-year-old lady who expressed desire for sterilization. The risks and benefits as well as the irreversibility of bilateral salpingectomy estefany with the patient prior to surgery. Operative findings:: She had a normal appearing right tube and ovary. The uterus was bulky and . There was an adhesion of the distal tube to the right ovary. On the left side there was a cyst thin-walled cystic area that was filled with dark fluid. It was very flimsy and ruptured as soon as I touched it. It was at the distal end of the left tube and adherent to the ovary. This was removed at the time of her left sided salpingectomy. The dark fluid was suctioned out of the deep pelvis. Operative note:: She was taken to the operating room where general anesthesia was found be adequate. She was prepped and draped in normal sterile fashion in the semilithotomy position. A weighted speculum was placed in the vagina and the anterior lip of the cervix was grasped with a tenaculum. I then inserted a Yane uterine manipulator into the cervical os. The balloon was then insufflated. I changed gloves and injected 10 cc of 0.5% ropivacaine around her umbilicus and made a small incision within the umbilicus. I inserted a Veress needle into the abdominal cavity. The peritoneal cavity was then insufflated with carbon dioxide gas to a pressure of 20 mmHg. I then inserted a 5 millimeter trocar under direct vision. I injected through and through the pubic hairline, made a small incision here and inserted an 8 mm trocar under direct vision. I identified the inferior epigastric artery on the left side, went lateral to these and injected through and through. I then placed a 5 mm trocar here under direct vision. The pelvis and upper abdomen were then inspected and the findings were as previously dictated. I grasped the right tube at the cornua and using harmonic scalpel on coagulation mode I cut through the tube. I then grasped the distal tube and using harmonic scalpel cut along the mesosalpinx. The tube was removed through 8 mm trocar site. This was similarly performed on the patient's left side. I then injected 30 cc of 0.5% ropivacaine into the pelvis. After assuring hemostasis the gas was let out of the abdomen and hemostasis was once again assured. The abdomen was then reinsufflated. The secondary trochars were removed under direct vision. The gas was let out her abdomen. The primary trocar was then removed. The 8 mm trocar site was closed deeply with 2-0 Vicryl suture followed by subcuticular 4-0 Monocryl suture. The 5 mm trocar sites were closed with subcuticular 4-0 Monocryl. Sterile dressings were applied. The patient tolerated the procedure well and was taken to the recovery room in excellent condition. All sponge instrument and needle counts were correct. The estimated blood loss was less than 25 cc. Condition: stable Disposition: PACU Specimens:: Bilateral fallopian tubes Complications:: None
--- NOTE | 2024-10-03 10:57 | EXP.ANES.II ---
[facility] Anesthesia Record Part II Anesthesia Record Part II Discharge Time: 10:30 Destination: Surgical Day Care (OP Surgery) PACU nurse assessment reviewed?: Yes Patient Condition:: Good Anesthesia Complications:: None Swallowing reflex intact?: Yes Airway Patency: Patent Cyanosis?: No Blood Pressure: 116/60 SaO2: 99 Respiratory Rate: 20 Pulse Rate: 61 Temperature: 97.9 F Mental Status: Alert & Oriented Pain level:: 0 Nausea and/or vomitting:: None Intake, IV Amount: 0 Hydration: Adequate
== END 2024-10-03 11:20 | disposition home or self-care (01) ==
PROVIDERS: Visit Provider Nurse Practitioner Obstetrics & Gynecology
PROC: (CPT 58661; principal; 2024-10-03 09:45)
DX: Z30.2 Encounter for sterilization (principal)
CPT/HCPCS: 58661; 86850; 96374; J3490; J0690; J1100; J1885; J2250; J2405; J3010